=== PATIENT | male | born 1935 | race Caucasian/White ===

== ENCOUNTER 2016-10-13 | Outpatient (CLI) | payer MEDICARE | END 2016-10-13 07:15 | disposition critical access hospital (66) | CPT/HCPCS: A0425; A0427 ==

== ENCOUNTER 2016-10-13 07:32 | Emergency (ER) | payer MEDICARE ==
[2016-10-13] MEDS ORDERED: guaiFENesin/CODEINE 5 ML UDC PO STA (07:38)
[2016-10-13] MEDS ORDERED: BENZONATATE 100 MG CAPSULE PO STA (07:38)
[2016-10-13] MEDS ORDERED: ALBUTEROL NEB 2.5 MG/3 ML INH STA (07:38)
[2016-10-13] MEDS ORDERED: guaiFENesin/CODEINE 5 ML UDC ONE (07:41)
[2016-10-13] MEDS ORDERED: BENZONATATE 100 MG CAPSULE PO ONE (07:41)
[2016-10-13] MEDS ORDERED: ALBUTEROL NEB 2.5 MG/3 ML INH ONE (08:02)
== END 2016-10-13 09:52 | disposition home or self-care (01) ==
DX: J40 Bronchitis, not specified as acute or chronic (principal); R51 Headache; J45.909 Unspecified asthma, uncomplicated; I10 Essential (primary) hypertension; I48.91 Unspecified atrial fibrillation; Z79.01 Long term (current) use of anticoagulants; M19.90 Unspecified osteoarthritis, unspecified site; M06.9 Rheumatoid arthritis, unspecified; G62.9 Polyneuropathy, unspecified; Z79.82 Long term (current) use of aspirin
CPT/HCPCS: 71020; 85610; 94640; 99283; 99284; A9270; J7613

== ENCOUNTER 2016-10-24 10:07 | Outpatient (CLI) | payer MEDICARE | END 2016-10-24 10:08 | disposition home or self-care (01) | DX: J18.9 Pneumonia, unspecified organism (principal) ==

== ENCOUNTER 2016-11-26 08:00 | Outpatient (CLI) | payer MEDICARE | END 2016-11-26 23:59 | DX: M06.4 Inflammatory polyarthropathy (principal) ==

== ENCOUNTER 2017-04-01 11:40 | Outpatient (CLI) | payer MEDICARE ==
[2017-04-01 19:20] LABS: BASOPHILS # (AUTO) 0.1 10^3/uL (0.0-0.1); BASOPHILS % (AUTO) 0.7 %; EOSINOPHILS % (AUTO) 0.4 %; HCT - HEMATOCRIT 34.3 % (42.0-52.0); HGB - HEMOGLOBIN 11.4 g/dL (14.0-18.0); LYMPHOCYTES # (AUTO) 0.9 10^3/uL (1.5-3.5); MEAN CORPUSCULAR HEMOGLOBIN 31.9 pg (27.0-31.0); MEAN CORPUSCULAR HGB CONC 33.4 g/dL (32.0-36.0); MEAN CORPUSCULAR VOLUME 95.6 fL (80.0-94.0); MONOCYTES # (AUTO) 0.7 10^3/uL (0.0-1.0); MONOCYTES % (AUTO) 6.9 %; NEUTROPHILS # (AUTO) 7.8 10^3/uL (1.5-6.6); NUCLEATED RED BLOOD CELLS AUTO 0.1 /100WBC; RED BLOOD COUNT 3.59 10^6/uL (4.70-6.10); RED CELL DISTRIBUTION WIDTH 18.1 % (12.0-15.0); UNCORRECTED WHITE BLOOD COUNT 9.5 x10^3/uL; WHITE BLOOD COUNT 9.5 x10^3/uL (4.8-10.8)
[2017-04-01 19:41] LABS: ALBUMIN/GLOBULIN RATIO 1.7 (1.0-2.2); BILIRUBIN,TOTAL 1.1 mg/dL (0.2-1.0); CREATININE 1.2 mg/dL (0.6-1.2); POTASSIUM 4.1 mmol/L (3.5-5.0); TOTAL PROTEIN 6.4 g/dL (6.7-8.2)
== END 2017-04-01 11:41 | disposition home or self-care (01) ==
LOC: LAB.WCP 11:40
PROVIDERS: ATTEND Internal Medicine Rheumatology
DX: M06.4 Inflammatory polyarthropathy (principal)
CPT/HCPCS: 36415; 80053; 85025; 85651

== ENCOUNTER 2017-07-20 11:25 | Outpatient (CLI) | payer MEDICARE ==
[2017-07-20 19:34] LABS: CALCIUM 8.2 mg/dL (8.5-10.3); CREATININE 1.9 mg/dL (0.6-1.2); POTASSIUM 4.3 mmol/L (3.5-5.0)
== END 2017-07-20 11:26 | disposition home or self-care (01) ==
LOC: LAB.WCP 11:25
PROVIDERS: ATTEND Family Medicine
DX: I10 Essential (primary) hypertension (principal)
CPT/HCPCS: 36415; 80048

== ENCOUNTER 2017-07-28 09:00 | Outpatient (CLI) | payer MEDICARE ==
[2017-07-28 19:01] LABS: CALCIUM 8.6 mg/dL (8.5-10.3); CREATININE 1.5 mg/dL (0.6-1.2); POTASSIUM 4.7 mmol/L (3.5-5.0)
== END 2017-07-28 09:01 | disposition home or self-care (01) ==
LOC: LAB.WCP 09:00
PROVIDERS: ATTEND Family Medicine
DX: I10 Essential (primary) hypertension (principal)
CPT/HCPCS: 36415; 80048

== ENCOUNTER 2017-12-16 08:00 | Outpatient (CLI) | payer MEDICARE ==
[2017-12-16 13:03] LABS: ALBUMIN 3.6 g/dL (3.2-5.5); ALBUMIN/GLOBULIN RATIO 1.7 (1.0-2.2); BILIRUBIN,TOTAL 0.3 mg/dL (0.2-1.0); CALCIUM 8.4 mg/dL (8.5-10.3); CREATININE 1.2 mg/dL (0.6-1.2); TOTAL PROTEIN 5.7 g/dL (6.7-8.2); URIC ACID 2.4 mg/dL (2.6-7.2)
== END 2017-12-16 08:01 | disposition home or self-care (01) ==
LOC: LAB.WCP 08:00
PROVIDERS: ATTEND Internal Medicine Rheumatology
DX: M06.4 Inflammatory polyarthropathy (principal)
CPT/HCPCS: 36415; 80053; 84550; 85651

== ENCOUNTER 2018-06-15 09:29 | Outpatient (CLI) | payer MEDICARE ==
--- NOTE | 2018-06-15 10:48 | DEXA Report ---
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 TECHNIQUE: Dual energy x-ray absorptiometry (DXA) was performed on a [employer]. Regions measured are the AP Spine, femoral neck, and if needed forearm. COMPARISON: None. In accordance with the International Society for Clinical Densitometry (ISCD) guidelines, data from previous exams may be reanalyzed using current recommendations and techniques. This is done to allow a more accurate basis for comparison with the current study. FINDINGS: The data for the lumbar spine is as follows: BMD (g/cm/cm) T-SCORE Z-SCORE REGION L1 0.897 -2.2 -2.0 L2 0.930 -2.6 -2.3 L3 1.223 -0.1 0.1 L4 1.364 1.0 1.3 TOTAL 1.108 -0.9 -0.7 NOTE: All evaluable vertebrae are used for classification The data for the hip is as follows: BMD (g/cm/cm) T-SCORE Z-SCORE REGION Neck 0.662 -3.1 -1.8 TOTAL 0.814 -2.0 -1.0 NOTE: The femoral neck or total proximal femur, whichever is lowest, is used for classification. IMPRESSION: THE WHO CLASSIFICATION BASED ON THE INTERNATIONAL REFERENCE STANDARD IS OSTEOPOROSIS. THE FRACTURE RISK IS HIGH. RECOMMENDATION: Patients with diagnosis of osteoporosis or osteopenia should have regular bone mineral density assessment. For those eligible for Medicare, routine testing is allowed once every 2 years. Testing frequency can be increased for patients who have rapidly progressing disease or for those who are receiving medical therapy to restore bone mass. COMMENT: World Health Organization (WHO) definitions for osteoporosis and osteopenia: NORMAL BMD: T-score at -1.0 or higher, fracture risk is low OSTEOPENIA BMD: T-score between -1.0 and -2.5, fracture risk is increased. OSTEOPOROSIS BMD: T-score at -2.5 or lower, fracture risk is high. National Osteoporosis Foundation recommends: 1. Obtain adequate dietary calcium (at least 1200 mg per day) and vitamin D (400-800 international units per day). 2. Participate, as appropriate, in regular weightbearing and muscle-strengthening exercise. 3. Avoid tobacco use and reduce alcohol and caffeine intake. 4. For more detailed information see the website at www.NOF.org.
== END 2018-06-15 09:30 | disposition home or self-care (01) ==
LOC: DI 09:29
PROVIDERS: ATTEND Internal Medicine Rheumatology
DX: M81.0 Age-related osteoporosis without current pathological fracture (principal)
CPT/HCPCS: 77080

== ENCOUNTER → 2018-07-05 | Outpatient (CLI) | payer MEDICARE ==
[2018-07-05 13:27] LABS: INR 1.8 (0.8-1.2); PT - PROTHROMBIN TIME 20.1 secs (9.9-12.6)
== END ==
LOC: LAB.WCP 08:00
PROVIDERS: ATTEND Family Medicine
DX: I48.91 Unspecified atrial fibrillation (principal); Z79.01 Long term (current) use of anticoagulants
CPT/HCPCS: 36415; 85610

== ENCOUNTER 2018-07-21 06:20 | Outpatient (CLI) | payer MEDICARE | END 2018-07-21 06:21 | disposition EMS.NT | LOC: EMS 06:20 | PROVIDERS: ATTEND Surgery | DX: H53.8 Other visual disturbances (principal); R42 Dizziness and giddiness ==

== ENCOUNTER 2018-09-15 11:46 | Outpatient (CLI) | payer MEDICARE ==
[2018-09-15 19:20] LABS: BASOPHILS # (AUTO) 0.1 10^3/uL (0.0-0.1); BASOPHILS % (AUTO) 0.8 %; EOSINOPHILS # (AUTO) 0.2 10^3/uL (0.0-0.7); EOSINOPHILS % (AUTO) 1.6 %; HGB - HEMOGLOBIN 10.8 g/dL (14.0-18.0); LYMPHOCYTES % (AUTO) 10.7 %; MEAN CORPUSCULAR HEMOGLOBIN 28.4 pg (27.0-31.0); MEAN CORPUSCULAR HGB CONC 31.7 g/dL (32.0-36.0); MEAN CORPUSCULAR VOLUME 89.6 fL (80.0-94.0); MEAN PLATELET VOLUME 9.4 fL (7.4-11.4); MONOCYTES # (AUTO) 0.6 10^3/uL (0.0-1.0); MONOCYTES % (AUTO) 6.7 %; NEUTROPHILS # (AUTO) 7.5 10^3/uL (1.5-6.6); NEUTROPHILS % (AUTO) 80.2 %; PLT - PLATELET COUNT 212 10^3/uL (130-450); RED CELL DISTRIBUTION WIDTH 20.7 % (12.0-15.0); WHITE BLOOD COUNT 9.4 x10^3/uL (4.8-10.8)
[2018-09-15 19:35] LABS: ALBUMIN/GLOBULIN RATIO 1.4 (1.0-2.2); ALKALINE PHOSPHATASE 61 IU/L (42-121); ALT ALANINE AMINOTRANSFERASE 18 IU/L (10-60); AST ASPARTATE AMINOTRANSFERASE 24 IU/L (10-42); BILIRUBIN,TOTAL 0.7 mg/dL (0.2-1.0); BUN - BLOOD UREA NITROGEN 34 mg/dL (6-20); CARBON DIOXIDE - CO2 28 mmol/L (21-32); CHLORIDE 106 mmol/L (101-111); CHOL/HDL RATIO 2.3 (<5.0); CHOLESTEROL 153 mg/dL; CREATININE 1.6 mg/dL (0.6-1.2); GFR - MDRD 41 (>89); GLUCOSE 92 mg/dL (70-100); HDL CHOLESTEROL 67 mg/dL; LDL CHOLESTEROL,CALCULATED 76 mg/dL; LDL/HDL RATIO 1.1 (<3.6); SODIUM 141 mmol/L (135-145); TOTAL PROTEIN 6.8 g/dL (6.7-8.2); VLDL CHOLESTEROL 10 mg/dL
[2018-09-15 20:38] LABS: PLATELET ESTIMATE, MANUAL NORMAL (130-450,000) (NORMAL); PLATELET MORPHOLOGY NORMAL APPEARANCE (NORMAL)
== END 2018-09-15 23:59 | disposition home or self-care (01) ==
LOC: LAB.WCP 11:46
PROVIDERS: ATTEND Family Medicine
DX: I10 Essential (primary) hypertension (principal); E78.5 Hyperlipidemia, unspecified
CPT/HCPCS: 36415; 80053; 80061; 83721; 85025

== ENCOUNTER 2018-10-27 10:03 | Outpatient (CLI) | payer MEDICARE ==
[2018-10-27 13:45] LABS: RHEUMATOID FACTOR NEGATIVE (Negative)
== END 2018-10-27 23:59 | disposition home or self-care (01) ==
LOC: LAB.WCP 10:03
PROVIDERS: ATTEND Internal Medicine Rheumatology
DX: M06.4 Inflammatory polyarthropathy (principal)
CPT/HCPCS: 36415; 84550; 85651; 86200; 86430

== ENCOUNTER 2018-11-04 08:00 | Outpatient (CLI) | payer MEDICARE | END 2018-11-04 23:59 | disposition home or self-care (01) | LOC: LAB.WCP 08:00 | PROVIDERS: ATTEND Family Medicine | DX: I48.91 Unspecified atrial fibrillation (principal); Z79.01 Long term (current) use of anticoagulants ==

== ENCOUNTER 2018-12-12 20:01 | Outpatient (CLI) | payer MEDICARE | END 2018-12-12 20:02 | disposition EMS.NT | LOC: EMS 20:01 | PROVIDERS: ATTEND Surgery | DX: S61.011A Laceration without foreign body of right thumb without damage to nail, initial encounter (principal); S61.210A Laceration without foreign body of right index finger without damage to nail, initial encounter; W18.39XA Other fall on same level, initial encounter; Y93.89 Activity, other specified; Y92.009 Unspecified place in unspecified non-institutional (private) residence as the place of occurrence of the external cause ==

== ENCOUNTER 2018-12-21 16:49 | Outpatient (CLI) | payer MEDICARE ==
--- NOTE | 2018-12-22 11:31 | XRAY Report ---
Reason: ANKLE PAIN,LEFT, ARTHRITIS, RHEUMATOID Procedure Date: 12/21/2018 Accession Number: [id number] / [id number] Procedure: XR - Ankle 3 View LT CPT Code: FULL RESULT: EXAM: LEFT ANKLE RADIOGRAPHY EXAM DATE: 12/21/2018 05:11 PM. CLINICAL HISTORY: Ankle pain, left, arthritis, rheumatoid. COMPARISON: None. TECHNIQUE: 3 views. FINDINGS: The bones are qualitatively osteopenic; this limits evaluation for underlying fractures or masses. There are chronic advanced degenerative changes of the hindfoot with talar collapse; acute component is essentially not possible to exclude. There are osseous destructive changes of the distal tibia and throughout the hindfoot. Mild inferior calcaneal spurring is also noted. IMPRESSION: Advanced neuropathic hindfoot changes. In absence of a prior comparison, acute fracture or subluxation is impossible to exclude on plain radiograph alone. Recommendation: Depending on clinical symptomatology, recommend advanced imaging in consultation with [facility] subspecialty section. [facility]
== END 2018-12-21 16:50 | disposition home or self-care (01) ==
LOC: DI 16:49
PROVIDERS: ATTEND Family Medicine
DX: M19.072 Primary osteoarthritis, left ankle and foot (principal); M06.9 Rheumatoid arthritis, unspecified

== ENCOUNTER 2019-01-07 08:00 | Outpatient (CLI) | payer MEDICARE | END 2019-01-07 23:59 | disposition home or self-care (01) | LOC: LAB.R 08:00 | PROVIDERS: ATTEND Family Medicine | DX: L03.115 Cellulitis of right lower limb (principal) | CPT/HCPCS: 87070; 87205 ==

== ENCOUNTER 2019-03-01 08:00 | Outpatient (CLI) | payer MEDICARE | END 2019-03-01 08:01 | disposition home or self-care (01) | LOC: LAB.WCP 08:00 | PROVIDERS: ATTEND Family Medicine | DX: I48.91 Unspecified atrial fibrillation (principal); Z79.01 Long term (current) use of anticoagulants ==

== ENCOUNTER 2019-03-29 08:00 | Outpatient (CLI) | payer MEDICARE | END 2019-03-29 23:59 | disposition home or self-care (01) | LOC: LAB.WCP 08:00 | PROVIDERS: ATTEND Physician Assistant | DX: I48.91 Unspecified atrial fibrillation (principal); Z79.01 Long term (current) use of anticoagulants ==

== ENCOUNTER 2019-05-17 08:00 | Outpatient (CLI) | payer MEDICARE | END 2019-05-17 23:59 | disposition home or self-care (01) | LOC: LAB.WCP 08:00 | PROVIDERS: ATTEND Family Medicine | DX: I48.91 Unspecified atrial fibrillation (principal); Z79.01 Long term (current) use of anticoagulants ==

== ENCOUNTER 2019-05-31 08:00 | Outpatient (CLI) | payer MEDICARE | END 2019-05-31 23:59 | disposition home or self-care (01) | LOC: LAB.WCP 08:00 | PROVIDERS: ATTEND Family Medicine | DX: Z79.01 Long term (current) use of anticoagulants (principal); I48.91 Unspecified atrial fibrillation ==

== ENCOUNTER 2019-06-14 08:00 | Outpatient (CLI) | payer MEDICARE | END 2019-06-14 23:59 | disposition home or self-care (01) | LOC: LAB.WCP 08:00 | PROVIDERS: ATTEND Family Medicine | DX: I48.91 Unspecified atrial fibrillation (principal); Z79.01 Long term (current) use of anticoagulants ==

== ENCOUNTER 2019-06-28 08:00 | Outpatient (CLI) | payer MEDICARE | END 2019-06-28 23:59 | disposition home or self-care (01) | LOC: LAB.WCP 08:00 | PROVIDERS: ATTEND Family Medicine | DX: Z79.01 Long term (current) use of anticoagulants (principal); I48.91 Unspecified atrial fibrillation ==

== ENCOUNTER 2019-07-26 08:00 | Outpatient (CLI) | payer MEDICARE | END 2019-07-26 23:59 | disposition home or self-care (01) | LOC: LAB.WCP 08:00 | PROVIDERS: ATTEND Nurse Practitioner Family | DX: Z79.01 Long term (current) use of anticoagulants (principal); I48.91 Unspecified atrial fibrillation ==

== ENCOUNTER 2019-08-23 08:00 | Outpatient (CLI) | payer MEDICARE | END 2019-08-23 23:59 | disposition home or self-care (01) | LOC: LAB.WCP 08:00 | PROVIDERS: ATTEND Nurse Practitioner Family | DX: Z79.01 Long term (current) use of anticoagulants (principal); I48.91 Unspecified atrial fibrillation ==

== ENCOUNTER 2019-09-14 08:00 | Outpatient (CLI) | payer MEDICARE | END 2019-09-14 23:59 | disposition home or self-care (01) | LOC: LAB.WCP 08:00 | PROVIDERS: ATTEND Family Medicine | DX: Z79.01 Long term (current) use of anticoagulants (principal); I48.91 Unspecified atrial fibrillation ==

== ENCOUNTER 2019-10-10 11:03 | Outpatient (CLI) | payer MEDICARE ==
--- NOTE | 2019-10-10 22:30 | XRAY Report ---
Reason: RIB PAIN Procedure Date: 10/10/2019 Accession Number: [id number] / [id number] Procedure: WCP - Chest 1 View X-Ray CPT Code: 37340 Final Report FULL RESULT: EXAM: CHEST RADIOGRAPHY EXAM DATE: 10/10/2019 11:03 AM. CLINICAL HISTORY: RIB PAIN. Chest pain. Shortness of air. Recent falls. Bilateral lower rib pain. COMPARISON: CHEST 2 VIEW PA/LAT 10/13/2016 7:51 AM. TECHNIQUE: 1 view. FINDINGS: Lungs/Pleura: No focal opacities evident. No pleural effusion. No pneumothorax. Mediastinum: Within exam limitations, the cardiomediastinal contour is normal. Other: No acute bone findings are seen. IMPRESSION: No acute findings are seen. [facility]
== END 2019-10-10 23:59 | disposition home or self-care (01) ==
LOC: DI.WCP 11:03
PROVIDERS: ATTEND Family Medicine
DX: R07.81 Pleurodynia (principal)
CPT/HCPCS: 71045

== ENCOUNTER 2019-10-25 08:00 | Outpatient (CLI) | payer MEDICARE | END 2019-10-25 23:59 | disposition home or self-care (01) | LOC: LAB.WCP 08:00 | PROVIDERS: ATTEND Family Medicine | DX: I48.91 Unspecified atrial fibrillation (principal); Z79.01 Long term (current) use of anticoagulants ==

== ENCOUNTER 2019-11-08 08:00 | Outpatient (CLI) | payer MEDICARE | END 2019-11-08 23:59 | disposition home or self-care (01) | LOC: LAB.WCP 08:00 | PROVIDERS: ATTEND Family Medicine | DX: I48.91 Unspecified atrial fibrillation (principal); Z79.01 Long term (current) use of anticoagulants ==

== ENCOUNTER 2019-11-29 08:00 | Outpatient (CLI) | payer MEDICARE | END 2019-11-29 23:59 | disposition home or self-care (01) | LOC: LAB.WCP 08:00 | PROVIDERS: ATTEND Family Medicine | DX: I48.91 Unspecified atrial fibrillation (principal); Z79.01 Long term (current) use of anticoagulants ==

== ENCOUNTER 2019-12-27 08:00 | Outpatient (CLI) | payer MEDICARE | END 2019-12-27 23:59 | disposition home or self-care (01) | LOC: LAB.WCP 08:00 | PROVIDERS: ATTEND Family Medicine | DX: I48.91 Unspecified atrial fibrillation (principal); Z79.01 Long term (current) use of anticoagulants ==

== ENCOUNTER 2020-02-02 08:00 | Outpatient (CLI) | payer MEDICARE | END 2020-02-02 23:59 | disposition home or self-care (01) | LOC: LAB.WCP 08:00 | PROVIDERS: ATTEND Family Medicine | DX: I48.91 Unspecified atrial fibrillation (principal); Z79.01 Long term (current) use of anticoagulants ==

== ENCOUNTER 2020-02-09 08:00 | Outpatient (CLI) | payer MEDICARE ==
[2020-02-09 18:57] LABS: BASOPHILS # (AUTO) 0.1 10^3/uL (0.0-0.1); BASOPHILS % (AUTO) 0.4 %; EOSINOPHILS # (AUTO) 0.1 10^3/uL (0.0-0.7); EOSINOPHILS % (AUTO) 1.2 %; HGB - HEMOGLOBIN 11.5 g/dL (14.0-18.0); LYMPHOCYTES # (AUTO) 0.7 10^3/uL (1.5-3.5); LYMPHOCYTES % (AUTO) 5.9 %; MEAN CORPUSCULAR HEMOGLOBIN 30.3 pg (27.0-31.0); MEAN CORPUSCULAR HGB CONC 31.4 g/dL (32.0-36.0); MEAN CORPUSCULAR VOLUME 96.6 fL (80.0-94.0); MEAN PLATELET VOLUME 11.2 fL (7.4-11.4); MONOCYTES # (AUTO) 0.6 10^3/uL (0.0-1.0); MONOCYTES % (AUTO) 5.2 %; NEUTROPHILS # (AUTO) 9.9 10^3/uL (1.5-6.6); NEUTROPHILS % (AUTO) 86.9 %; PLT - PLATELET COUNT 192 10^3/uL (130-450); RED BLOOD COUNT 3.79 10^6/uL (4.70-6.10); RED CELL DISTRIBUTION WIDTH 14.9 % (12.0-15.0); WHITE BLOOD COUNT 11.4 x10^3/uL (4.8-10.8)
[2020-02-09 19:23] LABS: ALBUMIN 4.1 g/dL (3.2-5.5); ALBUMIN/GLOBULIN RATIO 1.5 (1.0-2.2); BILIRUBIN,TOTAL 1.3 mg/dL (0.2-1.0); CREATININE 1.4 mg/dL (0.6-1.2); TOTAL PROTEIN 6.9 g/dL (6.7-8.2)
[2020-02-09 19:32] LABS: CALCIUM 9.1 mg/dL (8.5-10.3)
== END 2020-02-09 23:59 | disposition home or self-care (01) ==
LOC: LAB.WCP 08:00
PROVIDERS: ATTEND Family Medicine
DX: I10 Essential (primary) hypertension (principal)
CPT/HCPCS: 36415; 80053; 85025

== ENCOUNTER 2020-02-28 06:25 | Outpatient (CLI) | payer MEDICARE | END 2020-02-28 06:26 | disposition EMS.NT | LOC: EMS 06:25 | PROVIDERS: ATTEND Surgery | DX: R51 Headache (principal) ==

== ENCOUNTER 2020-02-28 15:50 | Outpatient (CLI) | payer MEDICARE | END 2020-02-28 15:51 | disposition short-term general hospital (02) | LOC: EMS 15:50 | PROVIDERS: ATTEND Surgery | DX: R41.82 Altered mental status, unspecified (principal); R09.89 Other specified symptoms and signs involving the circulatory and respiratory systems | CPT/HCPCS: A0425; A0427 ==

== ENCOUNTER 2020-03-03 02:41 | Outpatient (CLI) | payer MEDICARE | END 2020-03-03 02:42 | disposition critical access hospital (66) | LOC: EMS 02:41 | PROVIDERS: ATTEND Surgery | DX: R00.0 Tachycardia, unspecified (principal) | CPT/HCPCS: A0425; A0427 ==

== ENCOUNTER 2020-03-03 02:57 | Emergency (ER) | payer MEDICARE ==
--- NOTE | 2020-03-03 03:02 | ED Physician Documentation ---
History of Present Illness - Stated complaint Stated Complaint: AFIB - Chief complaint Chief Complaint: Cardiac - History obtained from History obtained from: Patient (Patient is an 84-year-old male DNR with chronic a fib. recently discharged from [facility] presents with a chief complaint of atrial fibrillation. He is on Coumadin. He denies chest pain. lopressor was held after recent admission has not restarted. patient reports chronic RUE brusing and), Other (swelling for 3 months after he tore his bicep. also reports chronic b/l LE edema. denies any hx of PE/DVT. patient denies chest pain.) Review of Systems Constitutional: reports: Reviewed and negative Eyes: reports: Reviewed and negative Ears: reports: Reviewed and negative Nose: reports: Reviewed and negative Throat: reports: Reviewed and negative Cardiac: reports: Palpitations. denies: Chest pain / pressure Respiratory: reports: Reviewed and negative GI: reports: Reviewed and negative : reports: Reviewed and negative Skin: reports: Reviewed and negative Musculoskeletal: reports: Reviewed and negative Neurologic: reports: Reviewed and negative Psychiatric: reports: Reviewed and negative Endocrine: reports: Reviewed and negative Immunocompromised: reports: Reviewed and negative PD PAST MEDICAL HISTORY - Past Medical History Cardiovascular: Hypertension, Atrial fibrillation Respiratory: Asthma GI: Other : Frequency HEENT: Chronic hearing loss, Other Psych: None Musculoskeletal: Osteoarthritis, Rheumatoid arthritis Derm: None - Past Surgical History Past Surgical History: Yes Ortho: Carpal Tunnel surgery, Other - Present Medications Home Medications: Ambulatory Orders Medication Instructions Recorded Confirmed Cyanocobalamin (Vitamin B-12) 250 mcg PO DAILY 04/26/14 03/03/20 [Vitamin B-12] Lisinopril 40 mg PO BID 04/26/14 03/03/20 [place]-3 Fatty Acids [Fish Oil] 1,000 mg PO DAILY 04/26/14 03/03/20 Morphine Sulfate 15 mg PO DAILY PRN 08/02/14 03/03/20 Atorvastatin Calcium 40 mg PO QPM 10/13/16 03/03/20 Warfarin Sodium [Jantoven] 2.5 mg PO DAILY 10/13/16 03/03/20 Furosemide 40 mg PO 03/03/20 allopurinoL [Allopurinol] 100 tab PO TID 03/03/20 03/03/20 amLODIPine [Norvasc] 2.5 mg PO QPM 03/03/20 03/03/20 - Allergies Allergies/Adverse Reactions: Allergies Allergy/AdvReac Type Severity Reaction Status Date / Time No Known Drug Allergies Allergy Verified 03/03/20 03:06 - Social History Does the pt smoke?: No Smoking Status: Never smoker PD ED PE NORMAL - Vitals Vital signs reviewed: Yes - General General: No acute distress, Well developed/nourished - HEENT HEENT: Atraumatic, PERRL - Neck Neck: Supple, no meningeal sign - Cardiac Cardiac: RRR, No murmur, Strong equal pulses - Respiratory Respiratory: No respiratory distress, Clear bilaterally - Abdomen Abdomen: Normal bowel sounds, Soft, Non tender, Non distended - Derm Derm: Warm and dry - Extremities Extremities: Other (Right upper extremity with edema and ecchymosis diffusely.Compartments soft. Bilateral 1+ lower extremity pitting edema.) - Neuro Neuro: Alert and oriented X 3, bar tacker 2-12 intact, No motor deficit, No sensory deficit, Normal speech - Psych Psych: Normal mood, Normal affect Results - Vitals Vitals: Vital Signs - 24 hr 03/03/20 03/03/20 03/03/20 02:59 03:14 03:33 Temperature 36.8 C Heart Rate 142 H 123 H 125 H Respiratory 17 19 18 Rate Blood Pressure 163/103 H 149/88 H Blood Pressure 149/88 H [Left] Blood Pressure 152/70 H [Right] O2 Saturation 99 99 100 03/03/20 03/03/20 03/03/20 03:45 03:49 04:09 Temperature Heart Rate 77 84 87 Respiratory 17 21 16 Rate Blood Pressure 127/71 152/70 H 141/66 H Blood Pressure [Left] Blood Pressure [Right] O2 Saturation 100 100 100 03/03/20 03/03/20 04:56 05:38 Temperature 36.3 C L Heart Rate 124 H 83 Respiratory 17 17 Rate Blood Pressure 159/63 H 158/86 H Blood Pressure [Left] Blood Pressure [Right] O2 Saturation 100 100 Oxygen O2 Source Room air - EKG (time done) 03:08 Rate: Other (Atrial fibrillation. posterior and right sided EKG ordered.) 03:32 Rate: Other (right sided EKG no STEMI) 03:34 Rate: Other (Posterior EKG, no STEMI) - Labs Labs: Laboratory Tests 03/03/20 03/03/20 03/03/20 00:50 03:30 03:30 WBC 10.1 RBC 3.26 L Hgb 10.1 L Hct 31.6 L MCV 96.9 H MCH 31.0 MCHC 32.0 RDW 15.5 H Plt Count 152 MPV 10.8 Neut # (Auto) 7.4 H Lymph # (Auto) 1.3 L [place] # (Auto) 0.8 Eos # (Auto) 0.4 Baso # (Auto) 0.1 Absolute Nucleated RBC 0.00 Nucleated RBC % 0.0 PT INR APTT Sodium 136 Potassium 4.4 Chloride 105 Carbon Dioxide 21 Anion Gap 10.0 BUN 41 H Creatinine 1.7 H Estimated GFR (MDRD) 38 L Glucose 95 Lactic Acid Calcium 8.7 Phosphorus Magnesium Total Bilirubin 1.1 H AST 20 ALT 19 Alkaline Phosphatase 65 Total Creatine Kinase 131 Troponin I High Sens B-Natriuretic Peptide Total Protein 6.2 L Albumin 3.7 Globulin 2.5 Albumin/Globulin Ratio 1.5 Lipase 33 TSH Urine Color YELLOW Urine Clarity CLEAR Urine pH 5.0 Ur Specific [place] 1.025 Urine Protein NEGATIVE Urine Glucose (UA) NEGATIVE Urine Ketones NEGATIVE Urine Occult Blood NEGATIVE Urine Nitrite NEGATIVE Urine Bilirubin NEGATIVE Urine Urobilinogen 0.2 (NORMAL) Ur Leukocyte Esterase NEGATIVE Ur Microscopic Review NOT INDICATED Urine Culture Comments NOT INDICATED Ethyl Alcohol < 5.0 03/03/20 03/03/20 03/03/20 03:30 03:30 03:30 WBC RBC Hgb Hct MCV MCH MCHC RDW Plt Count MPV Neut # (Auto) Lymph # (Auto) [place] # (Auto) Eos # (Auto) Baso # (Auto) Absolute Nucleated RBC Nucleated RBC % PT 22.2 H INR 2.0 H APTT 30.8 Sodium Potassium Chloride Carbon Dioxide Anion Gap BUN Creatinine Estimated GFR (MDRD) Glucose Lactic Acid Calcium Phosphorus Magnesium Total Bilirubin AST ALT Alkaline Phosphatase Total Creatine Kinase Troponin I High Sens 33.8 H* B-Natriuretic Peptide 78 Total Protein Albumin Globulin Albumin/Globulin Ratio Lipase TSH Urine Color Urine Clarity Urine pH Ur Specific [place] Urine Protein Urine Glucose (UA) Urine Ketones Urine Occult Blood Urine Nitrite Urine Bilirubin Urine Urobilinogen Ur Leukocyte Esterase Ur Microscopic Review Urine Culture Comments Ethyl Alcohol 03/03/20 03/03/20 03/03/20 03:30 03:30 03:41 WBC RBC Hgb Hct MCV MCH MCHC RDW Plt Count MPV Neut # (Auto) Lymph # (Auto) [place] # (Auto) Eos # (Auto) Baso # (Auto) Absolute Nucleated RBC Nucleated RBC % PT INR APTT Sodium Potassium Chloride Carbon Dioxide Anion Gap BUN Creatinine Estimated GFR (MDRD) Glucose Lactic Acid 1.2 Calcium Phosphorus 3.0 Magnesium 2.2 Total Bilirubin AST ALT Alkaline Phosphatase Total Creatine Kinase Troponin I High Sens B-Natriuretic Peptide Total Protein Albumin Globulin Albumin/Globulin Ratio Lipase TSH 1.58 Urine Color Urine Clarity Urine pH Ur Specific [place] Urine Protein Urine Glucose (UA) Urine Ketones Urine Occult Blood Urine Nitrite Urine Bilirubin Urine Urobilinogen Ur Leukocyte Esterase Ur Microscopic Review Urine Culture Comments Ethyl Alcohol PD MEDICAL DECISION MAKING - ED course Complexity details: reviewed old records, reviewed results (Elevated high sensitivity troponin noted. Records reviewed from [facility] from recent admission 2 days ago. noted slightly elevated troponin as well. patient denies chest pain. LAVINIA could be contributing factor to mild elevation in high sensitivity troponin.), re-evaluated patient (HR improved to 80s after 1 dose of diltiazem. according to records from [facility], patient is a DNR. patient is on coumadin and has a therapeutic INR. patient should restart his home lopressor at half dose per recommendations from [facility].), considered differential (atrial fibrillation. chf. ), d/w patient (patient had MDM capability and capacity and wants to go home. ), other (patient is DNR with chronic atrial fibrillation. Heart rate improved with 1 dose of diltiazem. patient is to restart his home lopressor at 1/2 dose and has not done so since recent discharge. did offer to transfer patient back to [facility]. Patient would like to be dcd home. he has MDM ) Departure - Departure Disposition: Home, Self Care Clinical Impression: Atrial fibrillation Qualifiers: Atrial fibrillation type: unspecified Qualified Code(s): I48.91 - Unspecified atrial fibrillation Condition: Stable Instructions: Atrial Fibrillation Dc Follow-Up: your, doctor [Other] - 03/05/20 Comments: resume your home dose of lopressor at half dose. continue coumadin. follow up with your pcp on Thursday. Discharge Date/Time: 03/03/20 05:43
[2020-03-03] MEDS ORDERED: DILTIAZEM 50 MG/10 ML VIAL IVP ONE (03:28)
[2020-03-03 03:41] LABS: BASOPHILS # (AUTO) 0.1 10^3/uL (0.0-0.1); BASOPHILS % (AUTO) 0.5 %; EOSINOPHILS # (AUTO) 0.4 10^3/uL (0.0-0.7); EOSINOPHILS % (AUTO) 4.3 %; HGB - HEMOGLOBIN 10.1 g/dL (14.0-18.0); LYMPHOCYTES # (AUTO) 1.3 10^3/uL (1.5-3.5); LYMPHOCYTES % (AUTO) 13.2 %; MEAN CORPUSCULAR VOLUME 96.9 fL (80.0-94.0); MEAN PLATELET VOLUME 10.8 fL (7.4-11.4); MONOCYTES # (AUTO) 0.8 10^3/uL (0.0-1.0); MONOCYTES % (AUTO) 8.1 %; NEUTROPHILS # (AUTO) 7.4 10^3/uL (1.5-6.6); NEUTROPHILS % (AUTO) 73.5 %; PLT - PLATELET COUNT 152 10^3/uL (130-450); RED BLOOD COUNT 3.26 10^6/uL (4.70-6.10); RED CELL DISTRIBUTION WIDTH 15.5 % (12.0-15.0); WHITE BLOOD COUNT 10.1 x10^3/uL (4.8-10.8)
[2020-03-03 03:49] LABS: ALBUMIN 3.7 g/dL (3.2-5.5); ALBUMIN/GLOBULIN RATIO 1.5 (1.0-2.2); ALKALINE PHOSPHATASE 65 IU/L (42-121); ALT ALANINE AMINOTRANSFERASE 19 IU/L (10-60); AST ASPARTATE AMINOTRANSFERASE 20 IU/L (10-42); BILIRUBIN,TOTAL 1.1 mg/dL (0.2-1.0); BUN - BLOOD UREA NITROGEN 41 mg/dL (6-20); CALCIUM 8.7 mg/dL (8.5-10.3); CARBON DIOXIDE - CO2 21 mmol/L (21-32); CHLORIDE 105 mmol/L (101-111); CK- CREATINE KINASE 131 IU/L (22-269); CREATININE 1.7 mg/dL (0.6-1.2); GLUCOSE 95 mg/dL (70-100); LIPASE 33 U/L (22-51); SODIUM 136 mmol/L (135-145); TOTAL PROTEIN 6.2 g/dL (6.7-8.2)
[2020-03-03 03:51] LABS: PT - PROTHROMBIN TIME 22.2 secs (9.9-12.6)
[2020-03-03 03:58] LABS: PARTIAL THROMBOPLASTIN TIME 30.8 secs (24.9-33.3)
[2020-03-03 04:00] LABS: MAGNESIUM 2.2 mg/dL (1.7-2.8)
[2020-03-03 05:08] LABS: BILIRUBIN,URINE NEGATIVE (NEGATIVE); GLUCOSE, URINE (UA) NEGATIVE (NEGATIVE); KETONES,URINE (UA) NEGATIVE (NEGATIVE); LEUKOCYTE ESTERASE, URINE NEGATIVE (NEGATIVE); NITRITE,URINE NEGATIVE (NEGATIVE); OCCULT BLOOD,URINE NEGATIVE (NEGATIVE); PROTEIN,URINE NEGATIVE (NEGATIVE); UROBILINOGEN,URINE 0.2 (NORMAL) E.U./dL (NORMAL)
[2020-03-03 05:09] LABS: CLARITY,URINE CLEAR (CLEAR)
[2020-03-03 05:39] VITALS: BP 158/86
--- NOTE | 2020-03-03 09:41 | XRAY Report ---
PROCEDURE: Chest 1 View X-Ray INDICATIONS: a fib TECHNIQUE: One view of the chest was acquired. COMPARISON: Chest x-ray, 10/10/2019. FINDINGS: Surgical changes and devices: None. Lungs and pleura: No pleural effusions or pneumothorax. Lungs are clear. Mediastinum: Mediastinal contours appear normal. Heart size is normal. Aortic calcification consis tent with atherosclerosis. Bones and chest wall: No suspicious bony lesions. Overlying soft tissues appear unremarkable. IMPRESSION: No acute cardiopulmonary disease. Reviewed by: Apolonia Mace MD on 03/03/2020 9:39 AM PDT Approved by: Apolonia Mace MD on 03/03/2020 9:39 AM PDT Station ID: [id number]
== END 2020-03-03 05:43 | disposition home or self-care (01) ==
LOC: EDUNIT# → ED 02:57
DX: I48.20 Chronic atrial fibrillation, unspecified (principal); Z79.01 Long term (current) use of anticoagulants; I45.10 Unspecified right bundle-branch block; I10 Essential (primary) hypertension; R60.0 Localized edema; S40.021A Contusion of right upper arm, initial encounter; X58.XXXA Exposure to other specified factors, initial encounter; Z66 Do not resuscitate
CPT/HCPCS: 36415; 71045; 80053; 80320; 81001; 81003; 82550; 83605; 83690; 83735; 83880; 84100; 84443; 84484; 85025; 85610; 85730; 87086; 93005; 96374; 99285

== ENCOUNTER 2020-03-04 14:19 | Outpatient (CLI) | payer MEDICARE | END 2020-03-04 23:59 | disposition EMS.NT | LOC: EMS 14:19 | PROVIDERS: ATTEND Surgery | DX: Z03.89 Encounter for observation for other suspected diseases and conditions ruled out (principal) ==

== ENCOUNTER 2020-03-07 10:53 | Outpatient (CLI) | payer MEDICARE | END 2020-03-07 10:54 | disposition critical access hospital (66) | LOC: EMS 10:53 | PROVIDERS: ATTEND Surgery | DX: R55 Syncope and collapse (principal); R06.89 Other abnormalities of breathing | CPT/HCPCS: A0425; A0427 ==

== ENCOUNTER 2020-03-07 11:11 | Emergency (ER) | payer MEDICARE ==
--- NOTE | 2020-03-07 11:53 | ED Physician Documentation ---
PD HPI SYNCOPE - Stated complaint Stated Complaint: SYNCOPE - Chief complaint Chief Complaint: Resp - History obtained from History obtained from: Patient, EMS - History of Present Illness Witnessed: Unwitnessed Timing - onset: Today Duration: Minutes Preceding symptoms: None Associated symptoms: No: Seizure, Incontinant of urine, Incontinant of stool, Headache, Vision changes, Chest pain, Palpitations, Diaphoresis, Dyspnea, Nausea / vomiting Contributing factors: Recent med change Injury occurred: None Similar symptoms before: Has not had sx before Recently seen: Emergency Dept - Additional information Additional information: 84-year-old male with history of atrial fibrillation on Coumadin has recently been into the emergency department with atrial fibrillation with rapid ventricular response and he was given a single dose of diltiazem discharged to home on a half dose of his prior metoprolol. He had been into [facility] the week prior to that. He was in the emergency department 4 days ago. He returned to his home he states that he was doing well he denies any shortness of breath other than with exertion and denies any fever or cough. He was sitting at his computer desk today when his found him slumped over. She went to wake him up and was unable to get his attention or get him to wake up. She called the medics and by the time the got there he was still not talking they laid him down on the floor and he began to come to. He now has no recollection of the event only states that he was sitting at his desk and he thought he might be asleep. The patient denies any history of congestive heart failure he does have some very swollen legs which she states is related to his rheumatoid arthritis. He does have sleep apnea. Review of Systems Constitutional: denies: Fever Eyes: denies: Decreased vision Ears: denies: Ear pain Nose: denies: Rhinorrhea / runny nose, Congestion Throat: denies: Sore throat Cardiac: reports: Pedal edema. denies: Chest pain / pressure, Palpitations Respiratory: reports: Dyspnea (on exertion no different than usual). denies: Cough GI: denies: Abdominal Pain, Nausea, Vomiting : reports: Frequency. denies: Dysuria Skin: denies: Rash Musculoskeletal: reports: Extremity pain, Extremity swelling. denies: Neck pain, Back pain Neurologic: reports: Syncope. denies: Generalized weakness, Focal weakness, Numbness, Near syncope PD PAST MEDICAL HISTORY - Past Medical History Cardiovascular: Hypertension, Atrial fibrillation Respiratory: Asthma GI: Other : Frequency HEENT: Chronic hearing loss, Other Psych: None Musculoskeletal: Osteoarthritis, Rheumatoid arthritis Derm: None - Past Surgical History Past Surgical History: Yes Ortho: Carpal Tunnel surgery, Other - Present Medications Home Medications: Ambulatory Orders Medication Instructions Recorded Confirmed Cyanocobalamin (Vitamin B-12) 250 mcg PO DAILY 04/26/14 03/03/20 [Vitamin B-12] Lisinopril 40 mg PO BID 04/26/14 03/03/20 [place]-3 Fatty Acids [Fish Oil] 1,000 mg PO DAILY 04/26/14 03/03/20 Morphine Sulfate 15 mg PO DAILY PRN 08/02/14 03/03/20 Atorvastatin Calcium 40 mg PO QPM 10/13/16 03/03/20 Warfarin Sodium [Jantoven] 2.5 mg PO DAILY 10/13/16 03/03/20 Furosemide 40 mg PO 03/03/20 allopurinoL [Allopurinol] 100 tab PO TID 03/03/20 03/03/20 amLODIPine [Norvasc] 2.5 mg PO QPM 03/03/20 03/03/20 Potassium Chloride 20 meq PO 03/07/20 predniSONE [Prednisone] 03/07/20 - Allergies Allergies/Adverse Reactions: Allergies Allergy/AdvReac Type Severity Reaction Status Date / Time No Known Drug Allergies Allergy Verified 03/07/20 11:36 - Social History Does the pt smoke?: No Smoking Status: Never smoker Does the pt drink ETOH?: Yes Does the pt have substance abuse?: No - Immunizations Immunizations are current?: Yes - POLST Patient has POLST: No PD ED PE NORMAL - Vitals Vital signs reviewed: Yes (hypertensive) - General General: Alert and oriented X 3, No acute distress, Well developed/nourished - HEENT HEENT: Atraumatic, PERRL, EOMI - Neck Neck: Supple, no meningeal sign, No bony TTP - Cardiac Cardiac: Other (Irregularly irregular rate and rhythm with 2 out of 6 holosystolic murmur at left sternal border.) - Respiratory Respiratory: No respiratory distress, Other (And inspiratory squeak in the right midlung otherwise good air movement symmetric and without crackles.) - Abdomen Abdomen: Normal bowel sounds, Soft, Non tender, Non distended, No organomegaly - Back Back: No CVA TTP, No spinal TTP - Derm Derm: Normal color, Warm and dry, No rash - Extremities Extremities: Other (Both lower extremities are markedly swollen and have erythema of venous stasis. The left leg is in a compression stocking the right leg is bandaged.) - Neuro Neuro: Alert and oriented X 3, personnel administrator 2-12 intact, No motor deficit, No sensory deficit, Normal speech Eye Opening: Spontaneous Motor: Obeys Commands Verbal: Oriented GCS Score: 15 - Psych Psych: Normal mood, Normal affect Results - Vitals Vitals: Vital Signs - 24 hr 03/07/20 03/07/20 03/07/20 11:00 11:15 11:34 Temperature 36.6 C Heart Rate 55 L 56 L Respiratory 13 18 Rate Blood Pressure 131/56 H 131/56 H O2 Saturation 94 97 03/07/20 13:51 Temperature Heart Rate 91 Respiratory 20 Rate Blood Pressure 148/101 H O2 Saturation 95 Oxygen O2 Source Room air - EKG (time done) 00397 Rate: Rate (enter#) (48) Rhythm: Atrial fibrillation Intervals: RBBB Ischemia: Q waves Compare to prior EKG: Changed from prior EKG (SPT 03-03-2020 the rate is slowed and the T-wave inversions seen in aterior leads has resolved. ) Computer interpretation: Agree with computer - Labs Labs: Laboratory Tests 03/07/20 03/07/20 03/07/20 12:40 13:09 13:15 WBC RBC Hgb Hct MCV MCH MCHC RDW Plt Count MPV Neut # (Auto) Lymph # (Auto) [place] # (Auto) Eos # (Auto) Baso # (Auto) Absolute Nucleated RBC Nucleated RBC % PT 19.4 H INR 1.8 H Sodium 137 Potassium 5.1 H Chloride 106 Carbon Dioxide 21 Anion Gap 10.0 BUN 48 H Creatinine 2.1 H Estimated GFR (MDRD) 30 L Glucose 102 H Lactic Acid Calcium 8.7 Magnesium 2.5 Total Bilirubin 1.3 H AST 18 ALT 18 Alkaline Phosphatase 56 Troponin I High Sens B-Natriuretic Peptide Total Protein 6.4 L Albumin 3.8 Globulin 2.6 Albumin/Globulin Ratio 1.5 Lipase 38 Urine Color YELLOW Urine Clarity CLEAR Urine pH 6.0 Ur Specific [place] 1.015 Urine Protein NEGATIVE Urine Glucose (UA) NEGATIVE Urine Ketones NEGATIVE Urine Occult Blood SMALL H Urine Nitrite NEGATIVE Urine Bilirubin NEGATIVE Urine Urobilinogen 0.2 (NORMAL) Ur Leukocyte Esterase NEGATIVE Urine RBC 11-25 H Urine WBC 0-3 Ur Squamous Epith Cells RARE Squamous Urine Bacteria Few Urine Casts 11-25 Hyaline Casts Ur Microscopic Review INDICATED Urine Culture Comments NOT INDICATED 03/07/20 03/07/20 03/07/20 13:15 13:15 13:15 WBC 9.5 RBC 3.39 L Hgb 10.8 L Hct 33.2 L MCV 97.9 H MCH 31.9 H MCHC 32.5 RDW 15.7 H Plt Count 193 MPV 10.7 Neut # (Auto) 7.2 H Lymph # (Auto) 0.9 L [place] # (Auto) 0.9 Eos # (Auto) 0.4 Baso # (Auto) 0.1 Absolute Nucleated RBC 0.00 Nucleated RBC % 0.0 PT INR Sodium Potassium Chloride Carbon Dioxide Anion Gap BUN Creatinine Estimated GFR (MDRD) Glucose Lactic Acid 1.8 Calcium Magnesium Total Bilirubin AST ALT Alkaline Phosphatase Troponin I High Sens B-Natriuretic Peptide 233 H Total Protein Albumin Globulin Albumin/Globulin Ratio Lipase Urine Color Urine Clarity Urine pH Ur Specific [place] Urine Protein Urine Glucose (UA) Urine Ketones Urine Occult Blood Urine Nitrite Urine Bilirubin Urine Urobilinogen Ur Leukocyte Esterase Urine RBC Urine WBC Ur Squamous Epith Cells Urine Bacteria Urine Casts Ur Microscopic Review Urine Culture Comments 03/07/20 13:15 WBC RBC Hgb Hct MCV MCH MCHC RDW Plt Count MPV Neut # (Auto) Lymph # (Auto) [place] # (Auto) Eos # (Auto) Baso # (Auto) Absolute Nucleated RBC Nucleated RBC % PT INR Sodium Potassium Chloride Carbon Dioxide Anion Gap BUN Creatinine Estimated GFR (MDRD) Glucose Lactic Acid Calcium Magnesium Total Bilirubin AST ALT Alkaline Phosphatase Troponin I High Sens 25.2 H* B-Natriuretic Peptide Total Protein Albumin Globulin Albumin/Globulin Ratio Lipase Urine Color Urine Clarity Urine pH Ur Specific [place] Urine Protein Urine Glucose (UA) Urine Ketones Urine Occult Blood Urine Nitrite Urine Bilirubin Urine Urobilinogen Ur Leukocyte Esterase Urine RBC Urine WBC Ur Squamous Epith Cells Urine Bacteria Urine Casts Ur Microscopic Review Urine Culture Comments - Rads (name of study) chest Radiology: Prelim report reviewed (Impression: No pneumonia found. Mild chronic interstitial prominence may reflect prior smoking history but age-related pulmonary degenerative change also could produce such an appearance.), EMP read indepedently, See rad report Procedures - IVC sono (time) 1210 Bedside IVC sono: IVC measures (cm) (1.52), IVC collapsed c insp (cm) (0.93), Euvolemia PD MEDICAL DECISION MAKING - ED course Complexity details: reviewed old records, reviewed results, re-evaluated patient, considered differential, d/w patient, d/w family ED course: 84-year-old male with history of atrial fibrillation and peripheral edema is on Coumadin and he has had an episode today of not waking up. He either was asleep or had a syncopal episode. He has been worked up for syncope. He has a normal volume and his electrocardiogram is improved from his prior 4 days ago. A work-up is ensued. The patient appears compos mentis and in no distress. His trop is again elevated in the range consistent with renal insufficiency. I discussed the findings with the patient and his studies are essentially all unremarkable with the exception of his renal insufficiency. I do not think he had a syncopal episode today I think he was asleep and when I brought this up with the patient he smiled and indicated that he believe that was exactly what happened as he has been getting very little sleep at night because he is worried about his . She has had a stroke. He will continue to check on her throughout the night to make sure that she is still breathing and he indicates that he is only had 1 or 2 hours of sleep in the past 3 nights. He does have significant peripheral edema he has had some help with that previously getting the swelling out by wrapping his legs. Departure - Departure Disposition: 01 Home, Self Care Clinical Impression: Sleep deprivation Condition: Stable Instructions: ED Insomnia Follow-Up: Rakan Banks DO [Primary Care Provider] -
--- NOTE | 2020-03-07 12:39 | XRAY Report ---
PROCEDURE: Chest 1 View X-Ray INDICATIONS: syncope, right middle wheeze TECHNIQUE: One view of the chest was acquired. COMPARISON: 03/03/2020 FINDINGS: Surgical changes and devices: None. Lungs and pleura: No pleural effusions or pneumothorax. Lungs are clear except for a small degree o f interstitial prominence previously present. Mediastinum: Mediastinal contours appear normal. Heart size is normal. Bones and chest wall: No suspicious bony lesions. Overlying soft tissues appear unremarkable. IMPRESSION: No pneumonia found. Mild chronic interstitial prominence may reflect prior smoking history but age re lated pulmonary degenerative change also can produce such an appearance. Reviewed by: Hayden Longo MD on 03/07/2020 12:37 PM PDT Approved by: Hayden Longo MD on 03/07/2020 12:37 PM PDT Station ID: [id number]
[2020-03-07 13:16] LABS: ALBUMIN 3.8 g/dL (3.2-5.5); ALBUMIN/GLOBULIN RATIO 1.5 (1.0-2.2); BILIRUBIN,TOTAL 1.3 mg/dL (0.2-1.0); CALCIUM 8.7 mg/dL (8.5-10.3); CREATININE 2.1 mg/dL (0.6-1.2); MAGNESIUM 2.5 mg/dL (1.7-2.8); TOTAL PROTEIN 6.4 g/dL (6.7-8.2)
[2020-03-07 13:22] LABS: BASOPHILS # (AUTO) 0.1 10^3/uL (0.0-0.1); BASOPHILS % (AUTO) 0.5 %; EOSINOPHILS # (AUTO) 0.4 10^3/uL (0.0-0.7); EOSINOPHILS % (AUTO) 4.2 %; HGB - HEMOGLOBIN 10.8 g/dL (14.0-18.0); LYMPHOCYTES # (AUTO) 0.9 10^3/uL (1.5-3.5); LYMPHOCYTES % (AUTO) 9.9 %; MEAN CORPUSCULAR HEMOGLOBIN 31.9 pg (27.0-31.0); MEAN CORPUSCULAR HGB CONC 32.5 g/dL (32.0-36.0); MEAN CORPUSCULAR VOLUME 97.9 fL (80.0-94.0); MEAN PLATELET VOLUME 10.7 fL (7.4-11.4); MONOCYTES # (AUTO) 0.9 10^3/uL (0.0-1.0); MONOCYTES % (AUTO) 9.5 %; NEUTROPHILS # (AUTO) 7.2 10^3/uL (1.5-6.6); NEUTROPHILS % (AUTO) 75.5 %; PLT - PLATELET COUNT 193 10^3/uL (130-450); RED BLOOD COUNT 3.39 10^6/uL (4.70-6.10); RED CELL DISTRIBUTION WIDTH 15.7 % (12.0-15.0); WHITE BLOOD COUNT 9.5 x10^3/uL (4.8-10.8)
[2020-03-07 13:25] LABS: INR 1.8 (0.8-1.2); PT - PROTHROMBIN TIME 19.4 secs (9.9-12.6)
[2020-03-07 13:56] LABS: BILIRUBIN,URINE NEGATIVE (NEGATIVE); GLUCOSE, URINE (UA) NEGATIVE (NEGATIVE); KETONES,URINE (UA) NEGATIVE (NEGATIVE); LEUKOCYTE ESTERASE, URINE NEGATIVE (NEGATIVE); NITRITE,URINE NEGATIVE (NEGATIVE); OCCULT BLOOD,URINE SMALL (NEGATIVE); PROTEIN,URINE NEGATIVE (NEGATIVE); UROBILINOGEN,URINE 0.2 (NORMAL) E.U./dL (NORMAL)
[2020-03-07 14:00] LABS: CLARITY,URINE CLEAR (CLEAR)
[2020-03-07 14:10] LABS: BACTERIA,URINE Few /HPF (None Seen); CASTS, URINE 11-25 Hyaline Casts /LPF; SQUAMOUS EPITHELIAL CELL,UR RARE Squamous (<= Few)
[2020-03-07 15:13] VITALS: BP 147/75
== END 2020-03-07 15:50 | disposition home or self-care (01) ==
LOC: EDUNIT# → ED 11:11
DX: Z72.820 Sleep deprivation (principal); N28.9 Disorder of kidney and ureter, unspecified; G47.30 Sleep apnea, unspecified; R60.0 Localized edema; I87.8 Other specified disorders of veins; I48.91 Unspecified atrial fibrillation; Z79.01 Long term (current) use of anticoagulants; I45.2 Bifascicular block; I10 Essential (primary) hypertension; M06.9 Rheumatoid arthritis, unspecified
CPT/HCPCS: 36415; 71045; 80053; 81001; 81003; 83605; 83690; 83735; 83880; 84484; 85025; 85610; 87040; 87086; 93005; 99284

== ENCOUNTER 2020-06-05 13:45 | Outpatient (CLI) | payer MEDICARE ==
[2020-06-05 21:06] LABS: HEMOGLOBIN A1c% 5.9 % (4.27-6.07)
== END 2020-06-05 23:59 | disposition home or self-care (01) ==
LOC: LAB.R 13:45
PROVIDERS: ATTEND Family Medicine
DX: S81.801D Unspecified open wound, right lower leg, subsequent encounter (principal); E11.9 Type 2 diabetes mellitus without complications
CPT/HCPCS: 83036

== ENCOUNTER 2020-07-03 11:03 | Outpatient (CLI) | payer MEDICARE | END 2020-07-03 23:59 | disposition home or self-care (01) | LOC: LAB.R 11:03 | PROVIDERS: ATTEND Family Medicine | DX: R60.9 Edema, unspecified (principal); S81.801D Unspecified open wound, right lower leg, subsequent encounter | CPT/HCPCS: 87070; 87077; 87181; 87205 ==

== ENCOUNTER 2020-08-14 07:00 | Outpatient (CLI) | payer MEDICARE | END 2020-08-14 23:59 | disposition home or self-care (01) | LOC: LAB.R 07:00 | PROVIDERS: ATTEND Family Medicine | DX: L97.211 Non-pressure chronic ulcer of right calf limited to breakdown of skin (principal); I89.0 Lymphedema, not elsewhere classified; I87.2 Venous insufficiency (chronic) (peripheral) | CPT/HCPCS: 87070; 87077; 87181; 87205 ==

== ENCOUNTER 2020-08-28 08:00 | Outpatient (CLI) | payer MEDICARE | END 2020-08-28 23:59 | disposition home or self-care (01) | LOC: LAB.WCP 08:00 | PROVIDERS: ATTEND Family Medicine | DX: Z79.01 Long term (current) use of anticoagulants (principal) ==

== ENCOUNTER 2020-09-21 09:30 | Outpatient (CLI) | payer MEDICARE | END 2020-09-21 23:59 | disposition home or self-care (01) | LOC: LAB.R 09:30 | PROVIDERS: ATTEND Physician Assistant Medical | DX: S81.811D Laceration without foreign body, right lower leg, subsequent encounter (principal); R60.9 Edema, unspecified | CPT/HCPCS: 87070; 87077; 87181; 87205 ==

== ENCOUNTER 2020-10-01 12:37 | Emergency (ER) | payer MEDICARE ==
--- NOTE | 2020-10-01 13:26 | ED Physician Documentation ---
PD HPI SKIN - Stated complaint Stated Complaint: BLISTERS LEGS - Chief complaint Chief Complaint: Wound - History obtained from History obtained from: Patient - Additional information Additional information: Patient is sent to the emergency department by his primary care physician for chief complaint of blisters on hands and feet for the last few months. According to a report given to the nurses, patient's primary care physician is apparently concerned about Vazquez-Ricco syndrome, though no physician to physician communication has taken place prior to the patient's arrival, so I cannot verify this. He has had the blisters for the last few months and that nothing seems to be making them better. He has a history of lymphedema in his lower extremities and that he normally wears compression stockings for this. He also has a history of some sort of arthritis, which she does not remember, and sees rheumatology and has received Remicade infusions in the past. Patient denies any lesions on his torso. No fever or chills. No other complaints at this time. Review of Systems Ten Systems: 10 systems reviewed and negative Constitutional: reports: Reviewed and negative Eyes: reports: Reviewed and negative Ears: reports: Reviewed and negative Nose: reports: Reviewed and negative Throat: reports: Reviewed and negative Cardiac: reports: Reviewed and negative Respiratory: reports: Reviewed and negative GI: reports: Reviewed and negative : reports: Reviewed and negative Skin: reports: Lesions (bullous) Musculoskeletal: reports: Reviewed and negative Neurologic: reports: Reviewed and negative Psychiatric: reports: Reviewed and negative Endocrine: reports: Reviewed and negative Immunocompromised: reports: Reviewed and negative PD PAST MEDICAL HISTORY - Past Medical History Past Medical History: Yes Cardiovascular: Hypertension, Atrial fibrillation Respiratory: Asthma GI: Other : Frequency HEENT: Chronic hearing loss, Other Psych: None Musculoskeletal: Osteoarthritis, Rheumatoid arthritis Derm: None - Past Surgical History Past Surgical History: Yes Ortho: Carpal Tunnel surgery, Other - Present Medications Home Medications: Ambulatory Orders Medication Instructions Recorded Confirmed Cyanocobalamin (Vitamin B-12) 250 mcg PO DAILY 04/26/14 03/03/20 [Vitamin B-12] Lisinopril 40 mg PO BID 04/26/14 03/03/20 [place]-3 Fatty Acids [Fish Oil] 1,000 mg PO DAILY 04/26/14 03/03/20 Morphine Sulfate 15 mg PO DAILY PRN 08/02/14 03/03/20 Atorvastatin Calcium 40 mg PO QPM 10/13/16 03/03/20 Warfarin Sodium [Jantoven] 2.5 mg PO DAILY 10/13/16 03/03/20 Furosemide 40 mg PO 03/03/20 allopurinoL [Allopurinol] 100 tab PO TID 03/03/20 03/03/20 amLODIPine [Norvasc] 2.5 mg PO QPM 03/03/20 03/03/20 Potassium Chloride 20 meq PO 03/07/20 predniSONE [Prednisone] 03/07/20 - Allergies Allergies/Adverse Reactions: Allergies Allergy/AdvReac Type Severity Reaction Status Date / Time No Known Drug Allergies Allergy Verified 03/07/20 11:36 - Social History Does the pt smoke?: No Smoking Status: Never smoker Does the pt drink ETOH?: Yes Does the pt have substance abuse?: No - Immunizations Immunizations are current?: Yes - POLST Patient has POLST: No PD ED PE NORMAL - Vitals Vital signs reviewed: Yes - General General: Alert and oriented X 3, No acute distress - HEENT HEENT: Atraumatic, PERRL, EOMI - Neck Neck: Supple, no meningeal sign - Cardiac Cardiac: RRR, No murmur, Strong equal pulses - Respiratory Respiratory: No respiratory distress, Clear bilaterally - Abdomen Abdomen: Soft, Non tender, Non distended - Derm Derm: Normal color, Warm and dry, Other (Bullae hands, feet, ankles. L hand 1 cm x 2.5 cm, with serosanguineous fluid no erythema. R hand 4 mm, serous fluid, no erythema. L foot 4 cm x 2.5 cm, serous fluid, no erythema. R foot/ankle: Mult. 1-4 cm bullae, intact and ruptured. No purulence. No erythema.) - Extremities Extremities: No deformity - Neuro Neuro: Alert and oriented X 3 - Psych Psych: Normal mood, Normal affect Results - Vitals Vitals: Vital Signs - 24 hr 10/01/20 10/01/20 12:45 12:50 Temperature 36.4 C L 36.5 C Heart Rate 53 L 53 L Respiratory 14 14 Rate Blood Pressure 150/100 H 150/60 H O2 Saturation 99 99 Oxygen O2 Source Room air PD MEDICAL DECISION MAKING - ED course Complexity details: considered differential, d/w patient ED course: I discussed with the patient that his symptoms do not represent Vazquez-Ricco syndrome. The patient is on allopurinol, but clinically he does not have Vazquez-Ricco. The patient Is already established with dermatology, and I have advised him to visit the issue of his bullae with them. The patient does have chronic lower extremity edema related to his lymphedema and I feel this is likely the underlying cause of his bullae. We have discussed that if the patient would like to, he can talk to his doctor about following up with the wound care clinic. We have discussed home management and symptoms, as well as usual indications for return. Departure - Departure Disposition: 01 Home, Self Care Clinical Impression: Lymphedema, Bullous disorder, unspecified Condition: Stable Instructions: ED Lymphedema Comments: There is no evidence of a serious cause of your blistering at this time. Although you are on allopurinol, which can put you at risk for a more serious blistering disorder, your findings on exam and by history do not indicate the presence of Vazquez-Ricco syndrome. You may discuss with your primary doctor whether you should still be on the allopurinol, which is the only potentially problematic medication on your list. In the meantime, since you are already established with a acquisitions editor, it is probably a good idea for you to follow- up with them to discuss whether anything further can be done for your blisters. Most likely, these are present due to your lymphedema. You may talk to Dr. Banks about following up with the wound care clinic for help with dressing and caring for your blisters. Alternatively, you may discuss the option possibly having a home health nurse come a couple of times a week to check and dressed her wounds, as well.
[2020-10-01 14:01] VITALS: BP 140/70
== END 2020-10-01 13:59 | disposition home or self-care (01) ==
LOC: ED 12:37
DX: I89.0 Lymphedema, not elsewhere classified (principal); R23.8 Other skin changes; M06.9 Rheumatoid arthritis, unspecified; I10 Essential (primary) hypertension; I48.91 Unspecified atrial fibrillation; Z79.01 Long term (current) use of anticoagulants
CPT/HCPCS: 99281; 99284

== ENCOUNTER 2020-10-09 09:33 | Outpatient (CLI) | payer MEDICARE ==
[2020-10-09 10:25] LABS: BASOPHILS # (AUTO) 0.1 10^3/uL (0.0-0.1); BASOPHILS % (AUTO) 0.4 %; EOSINOPHILS # (AUTO) 1.7 10^3/uL (0.0-0.7); EOSINOPHILS % (AUTO) 10.7 %; HCT - HEMATOCRIT 36.8 % (42.0-52.0); LYMPHOCYTES # (AUTO) 0.7 10^3/uL (1.5-3.5); LYMPHOCYTES % (AUTO) 4.1 %; MEAN CORPUSCULAR HEMOGLOBIN 30.9 pg (27.0-31.0); MEAN CORPUSCULAR HGB CONC 32.6 g/dL (32.0-36.0); MEAN CORPUSCULAR VOLUME 94.8 fL (80.0-94.0); MEAN PLATELET VOLUME 10.6 fL (7.4-11.4); MONOCYTES # (AUTO) 0.5 10^3/uL (0.0-1.0); NEUTROPHILS # (AUTO) 12.9 10^3/uL (1.5-6.6); NEUTROPHILS % (AUTO) 81.3 %; PLT - PLATELET COUNT 244 10^3/uL (130-450); RED BLOOD COUNT 3.88 10^6/uL (4.70-6.10); RED CELL DISTRIBUTION WIDTH 15.1 % (12.0-15.0); WHITE BLOOD COUNT 15.8 x10^3/uL (4.8-10.8)
[2020-10-09 10:32] LABS: ALBUMIN 3.6 g/dL (3.2-5.5); ALBUMIN/GLOBULIN RATIO 1.2 (1.0-2.2); BILIRUBIN,DIRECT 0.1 mg/dL (0.1-0.5); BILIRUBIN,TOTAL 0.5 mg/dL (0.2-1.0); CALCIUM 8.7 mg/dL (8.5-10.3); CREATININE 2.7 mg/dL (0.6-1.2); CRP - C-REACTIVE PROTEIN 4.2 mg/dL (0-1.0); POTASSIUM 4.7 mmol/L (3.5-5.0); TOTAL PROTEIN 6.6 g/dL (6.7-8.2)
[2020-10-09 10:59] LABS: SLIDE REVIEW? Indicated
[2020-10-09 11:00] LABS: RBC MORPHOLOGY (MULTIPLE) 2+ ANISOCYTOSIS (NORMAL)
== END 2020-10-09 09:34 | disposition home or self-care (01) ==
LOC: LAB 09:33
PROVIDERS: ATTEND Physician Assistant
DX: L30.9 Dermatitis, unspecified (principal); D48.5 Neoplasm of uncertain behavior of skin
CPT/HCPCS: 36415; 80053; 80076; 81599; 82248; 83520; 85025; 85651; 86140

== ENCOUNTER 2020-10-19 18:26 | Outpatient (CLI) | payer MEDICARE | END 2020-10-19 18:27 | disposition critical access hospital (66) | LOC: EMS 18:26 | PROVIDERS: ATTEND Emergency Medicine | DX: R53.1 Weakness (principal); R41.0 Disorientation, unspecified; R46.4 Slowness and poor responsiveness | CPT/HCPCS: A0425; A0429 ==

== ENCOUNTER 2020-10-19 18:44 | Emergency (ER) | payer MEDICARE ==
--- NOTE | 2020-10-19 18:52 | ED Physician Documentation ---
PD HPI FOCAL NEURO - Stated complaint Stated Complaint: GEN WEAKNESS - History obtained from History obtained from: Patient, EMS - Additional information Additional information: 85-year-old gentleman with history of A. fib on warfarin, pacemaker in place. He also has bullous pemphigoid. He was in his usual state of health this evening around 5 PM, had been working on his taxes and he started to feel confused. For about 15 minutes he was in a fog and just did not feel like himself. He was generally weak with full symptoms. Point to complete resolved. In fact he is an excellent historian, for example he knows not only his address but the ZIP Code with the last 4 digits, he remembers that his last INR was checked a week and a half ago at which time it was 3.6 and his physician recommended going to only half dose of warfarin on Thursday. He knows the date, the president, and what he had for breakfast. Review of Systems Ten Systems: 10 systems reviewed and negative Constitutional: reports: Reviewed and negative Cardiac: reports: Reviewed and negative Respiratory: reports: Reviewed and negative PD PAST MEDICAL HISTORY - Past Medical History Cardiovascular: Hypertension, Atrial fibrillation Respiratory: Asthma GI: Other : Frequency HEENT: Chronic hearing loss, Other Psych: None Musculoskeletal: Osteoarthritis, Rheumatoid arthritis Derm: None - Past Surgical History Past Surgical History: Yes Ortho: Carpal Tunnel surgery, Other - Present Medications Home Medications: Ambulatory Orders Medication Instructions Recorded Confirmed Cyanocobalamin (Vitamin B-12) 250 mcg PO DAILY 04/26/14 03/03/20 [Vitamin B-12] Lisinopril 40 mg PO BID 04/26/14 03/03/20 [place]-3 Fatty Acids [Fish Oil] 1,000 mg PO DAILY 04/26/14 03/03/20 Morphine Sulfate 15 mg PO DAILY PRN 08/02/14 03/03/20 Atorvastatin Calcium 40 mg PO QPM 10/13/16 03/03/20 Warfarin Sodium [Jantoven] 2.5 mg PO DAILY 10/13/16 03/03/20 Furosemide 40 mg PO 03/03/20 allopurinoL [Allopurinol] 100 tab PO TID 03/03/20 03/03/20 amLODIPine [Norvasc] 2.5 mg PO QPM 03/03/20 03/03/20 Potassium Chloride 20 meq PO 03/07/20 predniSONE [Prednisone] 03/07/20 - Allergies Allergies/Adverse Reactions: Allergies Allergy/AdvReac Type Severity Reaction Status Date / Time No Known Drug Allergies Allergy Verified 03/07/20 11:36 - Social History Does the pt smoke?: No Smoking Status: Never smoker Does the pt drink ETOH?: Yes Does the pt have substance abuse?: No - Immunizations Immunizations are current?: Yes - POLST Patient has POLST: No PD ED PE NORMAL - Vitals Vital signs reviewed: Yes - General General: Alert and oriented X 3, No acute distress - HEENT HEENT: PERRL, EOMI - Neck Neck: Supple, no meningeal sign, No bony TTP - Cardiac Cardiac: RRR, No murmur - Respiratory Respiratory: No respiratory distress, Clear bilaterally - Abdomen Abdomen: Soft, Non tender - Back Back: No CVA TTP, No spinal TTP - Derm Derm: Normal color, Warm and dry - Extremities Extremities: No calf tenderness / cord, Other (Moderate edema of both legs, he is wearing compression hose.) - Neuro Neuro: Alert and oriented X 3, apartment leasing consultant 2-12 intact, No motor deficit, No sensory deficit, Normal speech Eye Opening: Spontaneous Motor: Obeys Commands Verbal: Oriented GCS Score: 15 - Psych Psych: Normal mood, Normal affect Results - Vitals Vitals: Vital Signs - 24 hr 10/19/20 10/19/20 10/19/20 18:50 20:19 21:24 Temperature 36.5 C Heart Rate 60 67 37 L Respiratory 18 16 13 Rate Blood Pressure 177/80 H 159/95 H 167/80 H O2 Saturation 100 100 100 Oxygen O2 Source Room air - EKG (time done) 1909 Rate: Rate (enter#) (60) Rhythm: Paced - Labs Labs: Laboratory Tests 10/19/20 10/19/20 10/19/20 16:59 16:59 16:59 WBC 11.1 H RBC 4.01 L Hgb 12.4 L Hct 37.4 L MCV 93.3 MCH 30.9 MCHC 33.2 RDW 15.2 H Plt Count 204 MPV 10.8 Neut # (Auto) 10.1 H Lymph # (Auto) 0.6 L Stone # (Auto) 0.3 Eos # (Auto) 0.0 Baso # (Auto) 0.0 Absolute Nucleated RBC 0.00 Nucleated RBC % 0.0 PT 45.3 H INR 4.5 H* Sodium 142 Potassium 4.8 Chloride 105 Carbon Dioxide 24 Anion Gap 13.0 BUN 68 H Creatinine 1.7 H Estimated GFR (MDRD) 38 L Glucose 118 H Calcium 9.1 Magnesium 2.2 Total Bilirubin 0.9 AST 15 ALT 14 Alkaline Phosphatase 71 Total Protein 6.6 L Albumin 3.7 Globulin 2.9 Albumin/Globulin Ratio 1.3 PD MEDICAL DECISION MAKING - ED course ED course: 85-year-old gentleman presents after a brief episode of unexplained altered mental status. He has no current physical findings and his mental status is excellent. Departure - Departure Disposition: 01 Home, Self Care Clinical Impression: Dizziness Altered mental status Qualifiers: Altered mental status type: delirium Qualified Code(s): R41.0 - Disorientation, unspecified Atrial fibrillation Qualifiers: Atrial fibrillation type: permanent Qualified Code(s): I48.21 - Permanent atrial fibrillation Condition: Stable Instructions: ED Near Syncope Vasovagal Comments: No clear cause for your symptoms tonight. The only worrisome finding is that your INR is still quite elevated now at 4.5. Skip your warfarin the next 2 days and then get it rechecked on Thursday before restarting it. Follow-up with your doctor on Thursday as well. Return for new or worsening symptoms. Discharge Date/Time: 10/19/20 21:24
[2020-10-19 19:04] LABS: BASOPHILS % (AUTO) 0.1 %; HGB - HEMOGLOBIN 12.4 g/dL (14.0-18.0); LYMPHOCYTES # (AUTO) 0.6 10^3/uL (1.5-3.5); LYMPHOCYTES % (AUTO) 5.1 %; MEAN CORPUSCULAR HEMOGLOBIN 30.9 pg (27.0-31.0); MEAN CORPUSCULAR HGB CONC 33.2 g/dL (32.0-36.0); MEAN CORPUSCULAR VOLUME 93.3 fL (80.0-94.0); MEAN PLATELET VOLUME 10.8 fL (7.4-11.4); MONOCYTES # (AUTO) 0.3 10^3/uL (0.0-1.0); MONOCYTES % (AUTO) 2.4 %; NEUTROPHILS # (AUTO) 10.1 10^3/uL (1.5-6.6); PLT - PLATELET COUNT 204 10^3/uL (130-450); RED BLOOD COUNT 4.01 10^6/uL (4.70-6.10); RED CELL DISTRIBUTION WIDTH 15.2 % (12.0-15.0); WHITE BLOOD COUNT 11.1 x10^3/uL (4.8-10.8)
[2020-10-19 19:10] LABS: PT - PROTHROMBIN TIME 45.3 secs (9.9-12.6)
[2020-10-19 19:13] LABS: INR 4.5 (0.8-1.2)
[2020-10-19 19:19] LABS: ALBUMIN 3.7 g/dL (3.2-5.5); ALBUMIN/GLOBULIN RATIO 1.3 (1.0-2.2); BILIRUBIN,TOTAL 0.9 mg/dL (0.2-1.0); CALCIUM 9.1 mg/dL (8.5-10.3); CREATININE 1.7 mg/dL (0.6-1.2); MAGNESIUM 2.2 mg/dL (1.7-2.8); TOTAL PROTEIN 6.6 g/dL (6.7-8.2)
--- NOTE | 2020-10-19 20:03 | CT Report ---
PROCEDURE: HEAD WO INDICATIONS: weak TECHNIQUE: Noncontrast 4.5 mm thick angled axial sections acquired from the foramen magnum to the vertex. For r adiation dose reduction, the following was used: automated exposure control, adjustment of mA and/or kV according to patient size. COMPARISON: 07/24/2016 MRI FINDINGS: Image quality: Excellent. CSF spaces: Basal cisterns are patent. No extra-axial fluid collections. Ventricles are normal in size and shape. Brain: No midline shift. No intracranial masses or hemorrhage. Age-appropriate cerebral cortical v olume loss. Benign bilateral basal ganglia calcifications. Melissa-white matter interface is normal. Skull and face: Calvarium and visualized facial bones are intact, without suspicious lesions. Sinuses: Visualized sinuses and mastoids are clear. IMPRESSION: 1. No acute intracranial process. 2. Age-appropriate exam. Reviewed by: Judy Yoon MD on 10/19/2020 8:02 PM PST Approved by: Judy Yoon MD on 10/19/2020 8:02 PM PST Station ID: [id number]
[2020-10-19 21:26] VITALS: BP 167/80
== END 2020-10-19 21:24 | disposition home or self-care (01) ==
LOC: EDUNIT# → ED 18:44
DX: R41.0 Disorientation, unspecified (principal); R42 Dizziness and giddiness; R79.1 Abnormal coagulation profile; I48.21 Permanent atrial fibrillation; Z79.01 Long term (current) use of anticoagulants; Z95.0 Presence of cardiac pacemaker; I10 Essential (primary) hypertension; L12.0 Bullous pemphigoid
CPT/HCPCS: 36415; 80053; 83735; 85025; 85610; 93005; 99283; 99284

== ENCOUNTER 2020-10-25 05:59 | Outpatient (CLI) | payer MEDICARE | END 2020-10-25 06:00 | disposition EMS.NT | LOC: EMS 05:59 | DX: R20.2 Paresthesia of skin (principal); F41.9 Anxiety disorder, unspecified ==

== ENCOUNTER 2020-11-19 14:47 | Outpatient (CLI) | payer MEDICARE ==
--- NOTE | 2020-11-20 17:13 | Ultrasound Report ---
PROCEDURE: Duplex Lwr Ext Arterial Bilat INDICATIONS: PVD TECHNIQUE: Color and pulse Doppler interrogation was performed of both lower extremity arterial systems, with im age documentation. COMPARISON: None FINDINGS: Right lower extremity: Common femoral artery: 53 cm/sec, with biphasic flow. Deep femoral artery: 63 cm/sec, with biphasic flow. Proximal superficial femoral artery: 93 cm/sec, with biphasic flow. Mid superficial femoral artery: 90 cm/sec, with biphasic flow. Distal superficial femoral artery: 72 cm/sec, with biphasic flow. Popliteal artery: 36, 63 cm/sec, with biphasic flow. Posterior tibial artery: Not imaged secondary to bandage Anterior tibial artery/dorsalis pedis: Not imaged secondary to bandage Melissa-scale imaging description: There is mild diffuse plaque. There is a mild to moderate popliteal artery stenosis, likely less than 50%. Left lower extremity: Common femoral artery: 69 cm/sec, with biphasic flow. Deep femoral artery: 61 cm/sec, with biphasic flow. Proximal superficial femoral artery: 76 cm/sec, with biphasic flow. Mid superficial femoral artery: 71 cm/sec, with biphasic flow. Distal superficial femoral artery: 80 cm/sec, with biphasic flow. Popliteal artery: 36 cm/sec, with biphasic flow. Posterior tibial artery: 69 cm/sec, with biphasic flow. Anterior tibial artery/dorsalis pedis: 28/46 cm/sec, with biphasic flow. Melissa-scale imaging description: Mild diffuse plaque. Extensive ankle edema. Suboptimal evaluation of left anterior tibial and posterior tibial secondary to edema. However, they both have biphasic wavef orms. IMPRESSION: 1. No evidence of significant inflow stenotic disease. 2. Right lower extremity runoff significant for mild diffuse plaque and popliteal stenosis of less th an 50%. The calf vessels are not evaluated secondary to bandages. 3. Left lower extremity runoff significant for or mild diffuse plaque between the common femoral and the distal popliteal. There is extensive calf edema. Anterior tibial and posterior tibial are subopti dino visualized secondary to edema. However, they have biphasic waveforms Reviewed by: Isauro Valdez MD on 11/20/2020 5:11 PM PDT Approved by: Isauro Valdez MD on 11/20/2020 5:11 PM PDT Station ID: [id number]
== END 2020-11-19 14:48 | disposition home or self-care (01) ==
LOC: DI 14:47
PROVIDERS: ATTEND Family Medicine
DX: I73.89 Other specified peripheral vascular diseases (principal)
CPT/HCPCS: 93925

== ENCOUNTER 2020-11-23 15:12 | Emergency (ER) | payer MEDICARE ==
[2020-11-23 15:34] VITALS: BP 155/99
--- NOTE | 2020-11-23 17:35 | ED Physician Documentation ---
History of Present Illness - Stated complaint Stated Complaint: SENT BY HOME HEALTH - Chief complaint Chief Complaint: Ext Problem - History obtained from History obtained from: Patient - History of Present Illness Pain level max: 0 Pain level now: 0 - Additonal information Additional information: Patient is an 85-year-old male presents to the emergency department with cool feet bilaterally. He has weeping edema from the lateral lower extremities. The home health nurse was concerned about his circulation and sent him in. Nothing makes it better or worse. Patient states that he had an arterial ultrasound 2 days ago. Does not know the results. He states that his feet do not look any different than they usually do. No fevers. No chills. No coughing. Review of Systems Constitutional: denies: Fever, Chills GI: denies: Vomiting, Diarrhea Skin: denies: Rash Musculoskeletal: denies: Neck pain, Back pain Neurologic: denies: Headache PD PAST MEDICAL HISTORY - Past Medical History Cardiovascular: Hypertension, Atrial fibrillation Respiratory: Asthma GI: Other : Frequency HEENT: Chronic hearing loss, Other Psych: None Musculoskeletal: Osteoarthritis, Rheumatoid arthritis Derm: None - Past Surgical History Past Surgical History: Yes Ortho: Carpal Tunnel surgery, Other - Present Medications Home Medications: Ambulatory Orders Medication Instructions Recorded Confirmed Cyanocobalamin (Vitamin B-12) 250 mcg PO DAILY 04/26/14 03/03/20 [Vitamin B-12] Lisinopril 40 mg PO BID 04/26/14 03/03/20 [place]-3 Fatty Acids [Fish Oil] 1,000 mg PO DAILY 04/26/14 03/03/20 Morphine Sulfate 15 mg PO DAILY PRN 08/02/14 03/03/20 Atorvastatin Calcium 40 mg PO QPM 10/13/16 03/03/20 Warfarin Sodium [Jantoven] 2.5 mg PO DAILY 10/13/16 03/03/20 Furosemide 40 mg PO 03/03/20 allopurinoL [Allopurinol] 100 tab PO TID 03/03/20 03/03/20 amLODIPine [Norvasc] 2.5 mg PO QPM 03/03/20 03/03/20 Potassium Chloride 20 meq PO 03/07/20 predniSONE [Prednisone] 03/07/20 - Allergies Allergies/Adverse Reactions: Allergies Allergy/AdvReac Type Severity Reaction Status Date / Time No Known Drug Allergies Allergy Verified 11/23/20 15:34 - Social History Does the pt smoke?: No Smoking Status: Never smoker Does the pt drink ETOH?: Yes Does the pt have substance abuse?: No - Immunizations Immunizations are current?: Yes - POLST Patient has POLST: No PD ED PE NORMAL - Vitals Vital signs reviewed: Yes - General General: Alert and oriented X 3, No acute distress - HEENT HEENT: Moist mucous membranes - Neck Neck: Supple, no meningeal sign - Cardiac Cardiac: RRR - Respiratory Respiratory: No respiratory distress, Clear bilaterally - Abdomen Abdomen: Soft, Non tender, Non distended - Derm Derm: Warm and dry - Extremities Extremities: Other (Weeping edema to the bilateral lower extremities. Minor wounds to the dorsum of the right foot, anterior aspect of the right lower extremity. No signs of infection. Brisk cap refill, feet are cool to the touch. Not cyanotic.) - Neuro Neuro: Alert and oriented X 3 Results - Vitals Vitals: Vital Signs - 24 hr 11/23/20 15:16 Temperature 37.4 C Heart Rate 113 H Respiratory 16 Rate Blood Pressure 155/99 H O2 Saturation 97 Oxygen O2 Source Room air - Rads (name of study) Duplex arterial ultrasound Radiology: Prelim report reviewed, EMP read contemporaneously, See rad report PD MEDICAL DECISION MAKING - ED course Complexity details: reviewed results, re-evaluated patient, considered differential, d/w patient ED course: Patient had an incomplete duplex arterial ultrasound of the bilateral lower extremities 2 days ago which did not demonstrate any acute abnormalities. His bandages were removed and the remainder of the ultrasound was performed today. He does not have flow identified in the anterior tibial artery, But does have flow distally in the dorsalis pedis artery, suggestive of collateral flow. As the patient was warmed up in the emergency department his feet were warm and pink. Brisk cap refill. No signs of acute obstruction. Has peripheral vascular disease. We will have him follow-up with his doctor for further care. Neurovascularly intact. Patient counseled regarding signs and symptoms for which I believe and urgent re-evaluation would be necessary. Patient with good understanding of and agreement to plan and is comfortable going home at this time This document was made in part using voice recognition software. While efforts are made to proofread this document, sound alike and grammatical errors may occur. 1. No flow identified within the anterior tibial artery in the lower leg likely reflecting occlusion. 2. Flow demonstrated within the dorsalis pedis artery more distally suggestive of collateral flow. 3. Patent flow demonstrated within the posterior tibial artery. Departure - Departure Disposition: 01 Home, Self Care Clinical Impression: Peripheral arterial disease Condition: Good Instructions: ED PVD Follow-Up: Rakan Banks DO [Primary Care Provider] - Within 1 week Comments: Your feet are pink and warm here. Your ultrasound from 2 days ago shows the following: IMPRESSION: 1. No evidence of significant inflow stenotic disease. 2. Right lower extremity runoff significant for mild diffuse plaque and popliteal stenosis of less than 50%. The calf vessels are not evaluated secondary to bandages. 3. Left lower extremity runoff significant for or mild diffuse plaque between the common femoral and the distal popliteal. There is extensive calf edema. Anterior tibial and posterior tibial are suboptimally visualized secondary to edema. However, they have biphasic waveforms We reimaged the portion that was difficult to see 2 days ago and you have flow in your calf vessels but diminished in your anterior tibial artery. Follow up with your doctor for further care. Discharge Date/Time: 11/23/20 18:01
--- NOTE | 2020-11-23 17:51 | Ultrasound Report ---
PROCEDURE: Duplex Lwr Ext Arterial RT INDICATIONS: R LE cold, recent incomplete arterial US TECHNIQUE: Color and pulse Doppler interrogation was performed of the distal right lower extremity arterial syst em, with image documentation. Proximal vessels were evaluated on recent comparison study with the lo wer leg not evaluated at that time due to overlying bandages. COMPARISON: 11/19/2020 FINDINGS: Posterior tibial artery proximal: 52 cm/sec, with biphasic flow. Posterior tibial artery mid: 34 cm/sec, with biphasic flow. Posterior tibial artery distal: 43 cm/sec, with biphasic flow. Anterior tibial artery: No flow visualized along its expected course in the lower leg. Dorsalis pedis: 43 cm/second with biphasic flow Melissa-scale imaging description: There is extensive atherosclerotic vascular calcification throughout the lower leg. IMPRESSION: 1. No flow identified within the anterior tibial artery in the lower leg likely reflecting occlusion. 2. Flow demonstrated within the dorsalis pedis artery more distally suggestive of collateral flow. 3. Patent flow demonstrated within the posterior tibial artery. Reviewed by: Francesco Richardson MD on 11/23/2020 5:50 PM PDT Approved by: Francesco Richardson MD on 11/23/2020 5:50 PM PDT Station ID: [id number]
== END 2020-11-23 18:01 | disposition home or self-care (01) ==
LOC: ED 15:12
DX: I73.9 Peripheral vascular disease, unspecified (principal); R60.0 Localized edema; I10 Essential (primary) hypertension; I48.91 Unspecified atrial fibrillation; Z79.01 Long term (current) use of anticoagulants
CPT/HCPCS: 99282; 99284

== ENCOUNTER 2020-12-02 07:13 | Outpatient (CLI) | payer MEDICARE | END 2020-12-02 07:14 | disposition critical access hospital (66) | LOC: EMS 07:13 | DX: R60.0 Localized edema (principal); L53.9 Erythematous condition, unspecified | CPT/HCPCS: A0425; A0429 ==

== ENCOUNTER 2020-12-02 07:35 | Inpatient (IN) | payer MEDICARE ==
--- NOTE | 2020-12-02 07:57 | ED Physician Documentation ---
History of Present Illness - Stated complaint Stated Complaint: LEG PX - Chief complaint Chief Complaint: General - History obtained from History obtained from: Patient, EMS - Additonal information Additional information: Patient is brought to the emergency department by EMS for chief complaint of left leg pain. The patient has a history of chronic lower extremity edema and peripheral vascular disease which is treated at home by his and home health senior assistant manager. Patient has chronic sores on his right lower leg, but usually, his left leg is in a little better condition. However, the patient states that he has had increasing pain in the left calf over the last 24 hours and now this is wrapping around to the anterior portion of the leg as well. The patient does not think the color is any different, but EMS was called, due to concerns that the redness was more intense. Patient also had some chills overnight and a measured temperature of 100.6 at home. He is afebrile here. The patient denies feeling ill in any other way. He is not known to have a DVT history. The patient is currently on Coumadin for atrial fibrillation. He states the leg does not seem to be any more swollen than usual. No other complaints at this time. Review of Systems Ten Systems: 10 systems reviewed and negative Constitutional: reports: Reviewed and negative Eyes: reports: Reviewed and negative Ears: reports: Reviewed and negative Nose: reports: Reviewed and negative Throat: reports: Reviewed and negative Cardiac: reports: Reviewed and negative Respiratory: reports: Reviewed and negative GI: reports: Reviewed and negative : reports: Reviewed and negative Skin: reports: Reviewed and negative Musculoskeletal: reports: Reviewed and negative Neurologic: reports: Reviewed and negative Psychiatric: reports: Reviewed and negative Endocrine: reports: Reviewed and negative Immunocompromised: reports: Reviewed and negative PD PAST MEDICAL HISTORY - Past Medical History Cardiovascular: Hypertension, Atrial fibrillation Respiratory: Asthma GI: Other : Renal insuffiency, Frequency HEENT: Chronic hearing loss, Other Psych: None Musculoskeletal: Osteoarthritis, Rheumatoid arthritis Derm: None - Past Surgical History Past Surgical History: Yes Ortho: Carpal Tunnel surgery, Other - Present Medications Home Medications: Ambulatory Orders Medication Instructions Recorded Confirmed Cyanocobalamin (Vitamin B-12) 250 mcg PO DAILY 04/26/14 12/02/20 [Vitamin B-12] [place]-3 Fatty Acids [Fish Oil] 1,000 mg PO DAILY 04/26/14 12/02/20 Atorvastatin Calcium 40 mg PO QPM 10/13/16 12/02/20 Warfarin Sodium [Jantoven] 2.5 mg PO DAILY 10/13/16 12/02/20 Furosemide 40 mg PO DAILY 03/03/20 12/02/20 Potassium Chloride 20 meq PO DAILY 03/07/20 12/02/20 predniSONE [Prednisone] 1 tab PO DAILY 03/07/20 12/02/20 Metoprolol Tartrate [Lopressor] 25 mg PO BID 12/02/20 12/02/20 Morphine ER [Morphine Sulfate ER] 15 mg PO BID 12/03/20 12/03/20 - Allergies Allergies/Adverse Reactions: Allergies Allergy/AdvReac Type Severity Reaction Status Date / Time No Known Drug Allergies Allergy Verified 12/02/20 07:54 - Social History Does the pt smoke?: No Smoking Status: Never smoker Does the pt drink ETOH?: Yes Does the pt have substance abuse?: No - Immunizations Immunizations are current?: Yes - POLST Patient has POLST: No PD ED PE NORMAL - Vitals Vital signs reviewed: Yes - General General: Alert and oriented X 3, No acute distress - HEENT HEENT: Atraumatic, PERRL, EOMI, Moist mucous membranes - Neck Neck: Supple, no meningeal sign - Cardiac Cardiac: RRR, No murmur, Strong equal pulses - Respiratory Respiratory: No respiratory distress, Clear bilaterally - Abdomen Abdomen: Soft, Non tender, Non distended - Derm Derm: Other (Lower extremities both warm. Intense erythema from ankle to approximately 4 cm distal to knee on left. Sparing of foot. No crepitus or induration. Left lower leg with blotchy bluish-purple discoloration and skin breakdown. Warm.) - Extremities Extremities: No deformity, Other (Marked edema bilateral lower extremities, Symmetrical. Exquisite tenderness of left lower leg over erythematous area.) - Neuro Neuro: Alert and oriented X 3 - Psych Psych: Normal mood, Normal affect Results - Vitals Vitals: Oxygen O2 Source Room air - Labs Labs: Microbiology 12/02/20 08:00 Blood Culture - Preliminary Blood NO GROWTH AFTER 2 DAYS Laboratory Tests 12/02/20 12/02/20 12/02/20 08:00 08:00 08:00 WBC 12.6 H RBC 4.32 L Hgb 13.5 L Hct 39.9 L MCV 92.4 MCH 31.3 H MCHC 33.8 RDW 16.9 H Plt Count 160 MPV 10.7 Neut # (Auto) 11.8 H Lymph # (Auto) 0.2 L [place] # (Auto) 0.4 Eos # (Auto) 0.1 Baso # (Auto) 0.0 Absolute Nucleated RBC 0.25 Nucleated RBC % 2.0 PT INR Sodium 138 Potassium 4.6 Chloride 104 Carbon Dioxide 23 Anion Gap 11.0 BUN 84 H* Creatinine 2.8 H Estimated GFR (MDRD) 22 L Glucose 100 Lactic Acid 2.8 H Calcium 8.6 Total Bilirubin 1.1 H AST 25 ALT 27 Alkaline Phosphatase 62 Total Protein 5.7 L Albumin 3.1 L Globulin 2.6 Albumin/Globulin Ratio 1.2 Lipase 29 12/02/20 08:00 WBC RBC Hgb Hct MCV MCH MCHC RDW Plt Count MPV Neut # (Auto) Lymph # (Auto) [place] # (Auto) Eos # (Auto) Baso # (Auto) Absolute Nucleated RBC Nucleated RBC % PT 27.9 H INR 2.6 H Sodium Potassium Chloride Carbon Dioxide Anion Gap BUN Creatinine Estimated GFR (MDRD) Glucose Lactic Acid Calcium Total Bilirubin AST ALT Alkaline Phosphatase Total Protein Albumin Globulin Albumin/Globulin Ratio Lipase - Rads (name of study) CXR Radiology: Final report received, EMP read indepedently, See rad report US LLE Radiology: Final report received, EMP read indepedently, See rad report (no dvt) PD MEDICAL DECISION MAKING - ED course Complexity details: reviewed results, re-evaluated patient, considered differential, d/w patient ED course: There was some degree of conflict between the patient's assessment of his leg and the report from EMS, with regard to the color. Given the patient's tenderness, however, and his risk of infection, I did feel he should be worked up for cellulitis, as well as for DVT, even though the likelihood of DVT is low, given his status on Coumadin. The patient was found to have an elevated white blood cell count at 12.6 with Acid level of 2.8, which was somewhat elevated, as well. His INR was 2.6. Ultrasound of his left lower extremity was somewhat limited by patient's intolerance of pressure from the probe, but no obvious DVT was found. I did review patient's records and found that he had also had an arterial study done a couple of weeks ago which showed no arterial blockages. The patient was found to have an elevated BUN of 84 and creatinine of 2.8. It did appear that the patient had had longstanding renal insufficiency but creatinine seem to have been trending up since last summer. Patient's previous high creatinine had been 2.7, with 2 other readings this year at 2.1, and as such, it did not seem that the patient was in need of dialysis. Nonetheless, I felt this should be addressed, and I did give the patient initially 500 cc bolus point and normal saline. Pt's chest x-ray showed no pulmonary edema. The patient was also treated with a weight-based loading dose of vancomycin for presumed cellulitis, based on his fever at home, chills, elevated white blood cell count, and exquisite tenderness in his left lower extremity with questional worsening of redness. I spoke with Dr. Reynaga, as I felt the patient ought to be at least observed in the hospital to be sure that he is not trending toward sepsis. Dr. Reynaga did accept the patient for admission. Departure - Departure Disposition: [facility] Clinical Impression: Cellulitis, Acute on chronic renal insufficiency Condition: Serious Discharge Date/Time: 12/02/20 09:55
[2020-12-02 08:10] LABS: BASOPHILS % (AUTO) 0.2 %; EOSINOPHILS # (AUTO) 0.1 10^3/uL (0.0-0.7); EOSINOPHILS % (AUTO) 0.6 %; HCT - HEMATOCRIT 39.9 % (42.0-52.0); HGB - HEMOGLOBIN 13.5 g/dL (14.0-18.0); LYMPHOCYTES # (AUTO) 0.2 10^3/uL (1.5-3.5); LYMPHOCYTES % (AUTO) 1.8 %; MEAN CORPUSCULAR HEMOGLOBIN 31.3 pg (27.0-31.0); MEAN CORPUSCULAR HGB CONC 33.8 g/dL (32.0-36.0); MEAN CORPUSCULAR VOLUME 92.4 fL (80.0-94.0); MEAN PLATELET VOLUME 10.7 fL (7.4-11.4); MONOCYTES # (AUTO) 0.4 10^3/uL (0.0-1.0); MONOCYTES % (AUTO) 2.8 %; NEUTROPHILS # (AUTO) 11.8 10^3/uL (1.5-6.6); NRBC ABSOLUTE COUNT (AUTO) 0.25 x10^3/uL; PLT - PLATELET COUNT 160 10^3/uL (130-450); RED BLOOD COUNT 4.32 10^6/uL (4.70-6.10); RED CELL DISTRIBUTION WIDTH 16.9 % (12.0-15.0); WHITE BLOOD COUNT 12.6 x10^3/uL (4.8-10.8)
[2020-12-02 08:15] LABS: INR 2.6 (0.8-1.2); PT - PROTHROMBIN TIME 27.9 secs (9.9-12.6)
[2020-12-02 08:23] LABS: ALBUMIN 3.1 g/dL (3.2-5.5); ALBUMIN/GLOBULIN RATIO 1.2 (1.0-2.2); BILIRUBIN,TOTAL 1.1 mg/dL (0.2-1.0); CALCIUM 8.6 mg/dL (8.5-10.3); CREATININE 2.8 mg/dL (0.6-1.2); POTASSIUM 4.6 mmol/L (3.5-5.0); TOTAL PROTEIN 5.7 g/dL (6.7-8.2)
[2020-12-02] MEDS ORDERED: SODIUM CHLORIDE 0.9% 500 ML IV STA (08:41)
--- NOTE | 2020-12-02 09:13 | Ultrasound Report ---
PROCEDURE: Duplex Ext Veins Left INDICATIONS: pain/swelling TECHNIQUE: Real-time imaging, as well as color and pulse Doppler interrogation, were performed of the lower extr emity deep veins from the inguinal ligament to the popliteal fossa. COMPARISON: None. FINDINGS: The deep veins are normally compressible, and free of intraluminal thrombus. Color and pu lse Doppler demonstrate normal phasic intraluminal flow. There is normal augmentation response to di stal compression maneuver. Prominent soft tissue edema is seen, which limits evaluation of the calf veins. IMPRESSION: No findings of deep venous thrombosis are seen. Note: Concordant preliminary findings given by the mechanical specialist upon the completion of the examination to Dr. Arce at 9:00 AM on 12/02/2020. Reviewed by: Benigno Oneill MD on 12/02/2020 8:12 AM [facility] Approved by: Benigno Oneill MD on 12/02/2020 8:12 AM [facility] Station ID: [id number]
--- NOTE | 2020-12-02 09:14 | XRAY Report ---
PROCEDURE: Chest 1 View X-Ray INDICATIONS: chest pain TECHNIQUE: One view of the chest was acquired. COMPARISON: 03/05/2020, 03/03/2020 FINDINGS: Surgical changes and devices: A pacer device can be seen. Lungs and pleura: On the semiupright images, no large pneumothorax or large pleural effusions can be seen. No focal infiltrates are seen. Mediastinum: Mediastinal contours appear normal. Heart size is normal. Calcification is seen of th e aortic arch. Bones and chest wall: No suspicious bony lesions. Age-appropriate degenerative changes are seen. Overlying soft tissues appear unremarkable. IMPRESSION: Portable chest within normal limits for age. Postoperative and degenerative changes are seen. Reviewed by: Benigno Oneill MD on 12/02/2020 8:13 AM [facility] Approved by: Benigno Oneill MD on 12/02/2020 8:13 AM [facility] Station ID: [id number]
[2020-12-02] MEDS ORDERED: VANCOMYCIN INJ 3 GM in SODIUM CHLORIDE 0.9% 500 ML IV ONE (09:17)
--- NOTE | 2020-12-02 09:28 | HISTORY & PHYSICAL EXAMINATION ---
Chief Complaint - Chief Complaint Chief Complaint: left lower extremity redness and pain. 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 The pain was very significant last night such that he was unable to sleep. He also reported having chills last night. He had a fever when EMS checked upon arrival to his residence. In the ED he was found to have a white blood cell count of 12.8, lactic acid of 2.8, creatinine 2.8, significant bilateral lower extremity edema and extreme tenderness in the left lower extremity. As a result he was presented for admission for further treatment. At bedside he is resting comfortably. He denies chest pain, dyspnea, abdominal pain, nausea, vomiting. History - Past Medical History Cardiovascular: reports: Hypertension, High cholesterol, Atrial fibrillation, Other (Tachy-Kory s/p pacemaker) Respiratory: reports: Asthma GI: reports: Other : reports: Renal insuffiency, Frequency HEENT: reports: Chronic hearing loss, Other Psych: reports: None Musculoskeletal: reports: Osteoarthritis, Rheumatoid arthritis Derm: reports: None MRSA Hx?: No - Past Surgical History Ortho: reports: Hip replacement (right), Carpal Tunnel surgery, Other Cardiovascular: reports: Pacemaker - Family & Social History Family History Comment/Other: Maternal grandfather, mother and brother had Alzheimer's. His father and another of his brothers had pacemakers placed. Living arrangement: At home Living Situation: With spouse/s.o. Social History Notes: He does not consume tobacco products or recreational larios bstance. He drinks wine occasionally with dinner - POLST Patient has POLST: No POLST Status: DNR Meds/Allgy - Home Medications Home Medications: Ambulatory Orders Medication Instructions Recorded Confirmed Cyanocobalamin (Vitamin B-12) 250 mcg PO DAILY 04/26/14 12/02/20 [Vitamin B-12] [place]-3 Fatty Acids [Fish Oil] 1,000 mg PO DAILY 04/26/14 12/02/20 Morphine Sulfate 15 mg PO DAILY PRN 08/02/14 12/02/20 Atorvastatin Calcium 40 mg PO QPM 10/13/16 12/02/20 Warfarin Sodium [Jantoven] 2.5 mg PO DAILY 10/13/16 12/02/20 Furosemide 40 mg PO DAILY 03/03/20 12/02/20 Potassium Chloride 20 meq PO DAILY 03/07/20 12/02/20 predniSONE [Prednisone] 1 tab PO DAILY 03/07/20 12/02/20 Metoprolol Tartrate [Lopressor] 25 mg PO BID 12/02/20 12/02/20 - Allergies Allergies/Adverse Reactions: Allergies Allergy/AdvReac Type Severity Reaction Status Date / Time No Known Drug Allergies Allergy Verified 12/02/20 07:54 Review of Systems - Constitutional Constitutional: reports: Fever, Chills - Eyes Eyes: denies: Pain, Dipolpia - Cardiovascular Cariovascular: reports: Irregular heart rate, Edema (chronic lymphedema) - Respiratory Respiratory: denies: Cough, Sputum production, Wheezing, SOB at rest, SOB with exertion - Gastrointestinal Gastrointestinal: denies: Abdominal pain, Abdominal distention, Constipation, Diarrhea, Nausea, Vomiting - Genitourinary Genitourinary: denies: Dysuria, Frequency, Urgency, Hematuria - Musculoskeletal Musculoskeletal: denies: Muscle pain, Back pain - Integumentary Integumentary: reports: Other (ulcers on right lower extremity left lower extremity erythematous) - Neurological Neurological: denies: Focal weakness, Headache - Psychiatric Psychiatric: denies: Depression, Anxiety - Endocrine Endocrine: denies: Polyuria, Polydypsia - Hematologic/Lymphatic Hematologic/Lymphatic: denies: Anemia, Bruising Prior Level of Functionality: Patient is dependent for activities of daily living. There is a visiting nurse who comes in a couple of times weekly. Exam - Vital Signs Vital Signs: Vital Signs x48h Temp Pulse Resp BP Pulse Ox 12/02/20 09:19 36.0 C L 92 18 94/56 L 99 12/02/20 08:02 83 16 99 12/02/20 07:43 36.1 C L 96 29 H 105/58 L 98 - Physical Exam General Appearance: positive: Alert, Moderate distress Eyes Bilateral: positive: PERRL, EOMI ENT: positive: Dry mucous membranes Neck: positive: No JVD, Trachea midline Respiratory: positive: Chest non-tender, No respiratory distress, Breath sounds nml. negative: Wheezes, Rales, Rhonchi Cardiovascular: positive: Irregularly irregular Abdomen: positive: Non-tender, No organomegaly, Nml bowel sounds, No distention. negative: Guarding, Rebound Back: positive: Nml inspection Skin: positive: Other (ulcers/ wound on right lower extremity. Right foot cold to touch. left lower extremity from mid-edwards distally is erythematous) Extremities: positive: Pedal edema, Other (lower extremity lymphedema: Chronic >3+ bilaterally tender to palpation) Neurologic/Psychiatric: positive: Oriented x3, Mood/affect nml Conclusion/Plan - Problem List (1) Sepsis Conclusion/Plan: Secondary to left lower extremity cellulitis. Patient had a WBC of 12.8, lactic acid 2.8, and a reported fever at home. Patient was started on vancomycin in the ED. We will continue with pharmacy to dose. Gentle hydration with normal saline at 83 mils per hour due to patient's chronic lymphedema. We will trend lactic acid. Blood cultures pending. (2) Cellulitis of left lower extremity Conclusion/Plan: Chronic lymphedema makes him susceptible. On vancomycin. Pharmacy to dose. Gentle IV hydration. Blood cultures pending. We will trend lactic acid. (3) Acute on chronic renal insufficiency Conclusion/Plan: Patient appears to be intravascularly volume depleted despite chronic lower extremity lymphedema. His creatinine on 10/19/20 was 1.7. Today it is 2.8, BUN of 84, eGFR 22. Hold Lasix. Patient receiving gentle IV hydration with normal saline at 83 mils per hour. Anticipating improvement. We will check a.m. labs. (4) Hyperlipidemia Conclusion/Plan: On atorvastatin 40 mg p.o. every afternoon (5) Hypertension Conclusion/Plan: We will hold patient's Lasix and metoprolol tartrate while actively hydrating the patient for acute renal failure and sepsis (6) Rheumatoid arthritis Conclusion/Plan: Patient has been on Remicade and methotrexate in the past with no success. 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 (7) Atrial fibrillation Conclusion/Plan: Will resume patient's metoprolol tartrate 25 mg p.o. twice daily when appropriate to do so. It is currently on hold while actively hydrating the patient for sepsis and acute on chronic renal failure. Continue patient's Coumadin. INR today is 2.6. Qualifiers: Atrial fibrillation type: permanent Qualified Code(s): I48.21 - Permanent atrial fibrillation (8) Bullous disorder, unspecified Conclusion/Plan: On prednisone 10mg po daily. Will hold for now. If patient becomes significantly hypotensive and not responding to fluids, Will order hydrocortisone (9) Lymphedema Conclusion/Plan: Chronic. Lasix held currently while hydrating for sepsis (10) Peripheral arterial disease Conclusion/Plan: Left lower extremity pain: Venous Duplex of left lower extremity done today 12/02/20 was negative for DVT Patient had presented to the ED on 11/23/20 with right foot cold: Arterial Duplex of Right lower extremity done on 11/23/20 showed No flow in the anterior tibial artery reflecting occluision. Flow was demonstrated within the dorsalis pedis artery more distally, suggestive of collateral flow. This was a follow up study to an incomplete study done on 11/20/20. It was determined that there was no acute occlusion. He was to follow up with his doctor for further care. He is on coumadin with an INR of 2.6 today. - Lab Results Fish Bones: 12/02/20 08:00 12/02/20 08:00 Core Measures - Anticipated LOS I expect patient to be DC'd or transferred within 96 hours.: Yes - DVT/VTE - Prophylaxis VTE/DVT Device ordered at admit?: No Not Ordered - Medical Reason: Contraindicated (Bilateral lower ext ulcer, cellulitis, pain, edema) VTE/DVT Prophylaxis med ordered at admit?: Yes
[2020-12-02] MEDS: SODIUM CHLORIDE FLUSH 0.9% 10 ML SYRINGE IVP PRN (10:19)
[2020-12-02 10:52] LABS: B. PARAPERTUSSIS- RESP PCR PAN NOT DETECTED; B. PERTUSSIS- RESP PCR PANEL NOT DETECTED; C. PNEUMONIAE- RESP PCR PANEL NOT DETECTED; CORONAVIRUS 229E-RESP PCR NOT DETECTED; CORONAVIRUS HKU1-RESP PCR NOT DETECTED; CORONAVIRUS NL63-RESP PCR NOT DETECTED; CORONAVIRUS OC43-RESP PCR NOT DETECTED; HUMAN METAPNEUMOVIRUS NOT DETECTED; INFLUENZA A- RESP PCR PANEL NOT DETECTED; INFLUENZA B - RESP PCR PANEL NOT DETECTED; M. PNEUMONIAE- RESP PCR PANEL NOT DETECTED; PARAINFLUENZA VIRUS 1 NOT DETECTED; PARAINFLUENZA VIRUS 2 NOT DETECTED; PARAINFLUENZA VIRUS 3 NOT DETECTED; PARAINFLUENZA VIRUS 4 NOT DETECTED; RHINOVIRUS/ENTEROVIRUS NOT DETECTED; RSV- RESP PCR PANEL NOT DETECTED; SARS-CoV-2 -RESP PCR PANEL NOT DETECTED
[2020-12-02] MEDS ORDERED: HYDROcod/ACETAM 7.5 MG/325 MG TABLET PO PRN (11:55)
[2020-12-02] MEDS ORDERED: SODIUM CHLORIDE 0.9% 1,000 ML IV SCH ×2 (12:00→12:41)
[2020-12-02] MEDS: CEFEPIME 2 GM in SODIUM CHLORIDE 0.9% MINIBAG 100 ML IV SCH ×2 (12:49→22:08)
--- NOTE | 2020-12-02 15:32 | PHARMACY PROGRESS NOTE ---
- Therapy Status Vancomycin regimen day #: 1 Therapy status: Awaiting steady state Basis for treatment: Empirical Treatment indication: Cellulitis/Sepsis Concurrent antibiotics: Cefepime - LAVINIA Risk Risk level for Acute Kidney Injury: High Acute Kidney Injury risk factors: Baseline CrCl <50, Goal trough >15, Sepsis - Monitoring and Recommendation Clinical response to treatment: I&O Previous 24 hours 11/30/20 12/01/20 12/02/20 23:59 23:59 23:59 Intake Total 1220 Output Total 175 Balance 1045 Lab Results 12/02/20 08:00 BUN 84 H* Creatinine 2.8 H Estimated GFR (MDRD) 22 L Monitoring plan: Daily serum creatinine, Suggest ongoing fluid replacement Next trough due (date/time): Random level with morning labs Areas for additional monitoring: IV to PO when appropriate, Therapy de- escalation based on culture results
--- NOTE | 2020-12-02 15:33 | PHARMACY PROGRESS NOTE ---
- Best Possible Medication History Admit Date and Time: 12/02/20 0919 Processed by: Nursing Medication History completed: Yes As the person ultimately responsible for medication therapy, providers are able to order a medication from an existing home medication list in [facility] via the "Reconcile Routine" prior to Confirmation of that medication by application support intern. Such practice is discouraged except when the physician, in their clinical judgment, deems that a medical need exists for a medication without regard to previous use.
[2020-12-02] MEDS ORDERED: SODIUM CHLORIDE 0.9% 1,000 ML IV ONE (17:04)
[2020-12-02] MEDS ORDERED: SODIUM CHLORIDE FLUSH 0.9% 10 ML SYRINGE IVP PRN (17:11)
[2020-12-02] MEDS: SODIUM CHLORIDE FLUSH 0.9% 10 ML SYRINGE IVP SCH (17:25)
[2020-12-02 17:37] LABS: BASOPHILS % (AUTO) 0.2 %; EOSINOPHILS % (AUTO) 0.1 %; HCT - HEMATOCRIT 36.2 % (42.0-52.0); HGB - HEMOGLOBIN 12.1 g/dL (14.0-18.0); LYMPHOCYTES % (AUTO) 4.3 %; MEAN CORPUSCULAR HGB CONC 33.4 g/dL (32.0-36.0); MEAN CORPUSCULAR VOLUME 95.8 fL (80.0-94.0); MEAN PLATELET VOLUME 11.3 fL (7.4-11.4); MONOCYTES % (AUTO) 1.6 %; NEUTROPHILS % (AUTO) 92.3 %; PLT - PLATELET COUNT 122 10^3/uL (130-450); RED BLOOD COUNT 3.78 10^6/uL (4.70-6.10); RED CELL DISTRIBUTION WIDTH 17.5 % (12.0-15.0); WHITE BLOOD COUNT 19.8 x10^3/uL (4.8-10.8)
[2020-12-02 17:39] LABS: ABNORMAL LYMPHS % (MANUAL) 0 %
[2020-12-02 17:47] LABS: CALCIUM 7.9 mg/dL (8.5-10.3); CREATININE 2.7 mg/dL (0.6-1.2); POTASSIUM 5.2 mmol/L (3.5-5.0)
[2020-12-02 18:27] LABS: BAND NEUTROPHILS % (MANUAL) 17 %; LYMPHOCYTES # (MANUAL) 0.8 10^3/uL (1.5-3.5); LYMPHOCYTES % (MANUAL) 4 %; METAMYELOCYTES % (MANUAL) 1 %; MONOCYTES # (MANUAL) 0.8 10^3/uL (0.0-1.0); MYELOCYTES % (MANUAL) 1 %; NEUTROPHILS # (MANUAL) 17.8 10^3/uL (1.5-6.6)
[2020-12-02 18:32] LABS: DIFFERENTIAL COMMENT MANUAL DIFFERENTIAL; PLATELET ESTIMATE, MANUAL DECREASED (<130,000) (NORMAL); PLATELET MORPHOLOGY 1+ GIANT PLATELETS (NORMAL)
[2020-12-02] MEDS: metroNIDAZOLE 500 MG/100 ML 500 MG/100 ML BAG IV SCH (18:45)
[2020-12-02] MEDS: ATORVASTATIN 40 MG TABLET PO SCH (21:17)
[2020-12-02] MEDS: MORPHINE IR 15 MG TABLET PO PRN (21:17)
--- NOTE | 2020-12-02 22:24 | ANESTHESIA PROCEDURE NOTE ---
Anesth Central Line Template - Central Line Central Line Preparation: Consent Obtained, Time out completed, Ultrasound used, Sterile prep and drape Central line location: Right IJ Central line type: Triple lumen Central line catheter tip site resides: Superior vena cava (SVC) Central line aftercare: Secured, Placement confirmed, No pneumothorax, No complications, Bundle checklist complete, Pt tolerated well (20cm placed to 16cm, secured with suture x3, tegaderm. Pt tolerated without complication/complaint.)
[2020-12-02] MEDS: SODIUM CHLORIDE 0.9% 1,000 ML IV SCH (23:43)
[2020-12-03] MEDS: SODIUM CHLORIDE FLUSH 0.9% 10 ML SYRINGE IVP SCH ×6 (00:11→17:45)
[2020-12-03 00:18] LABS: CALCIUM 7.6 mg/dL (8.5-10.3); CREATININE 2.4 mg/dL (0.6-1.2); POTASSIUM 4.7 mmol/L (3.5-5.0)
[2020-12-03] MEDS: metroNIDAZOLE 500 MG/100 ML 500 MG/100 ML BAG IV SCH ×3 (01:24→18:20)
[2020-12-03] MEDS ORDERED: SODIUM CHLORIDE FLUSH 0.9% 10 ML SYRINGE IVP PRN (02:35)
[2020-12-03] MEDS: SODIUM CHLORIDE 0.9% 1,000 ML IV SCH ×3 (02:35→21:30)
[2020-12-03 05:17] LABS: BASOPHILS # (AUTO) 0.1 10^3/uL (0.0-0.1); BASOPHILS % (AUTO) 0.3 %; EOSINOPHILS # (AUTO) 0.1 10^3/uL (0.0-0.7); EOSINOPHILS % (AUTO) 0.3 %; HCT - HEMATOCRIT 30.8 % (42.0-52.0); HGB - HEMOGLOBIN 10.3 g/dL (14.0-18.0); LYMPHOCYTES # (AUTO) 0.7 10^3/uL (1.5-3.5); LYMPHOCYTES % (AUTO) 3.6 %; MEAN CORPUSCULAR HEMOGLOBIN 31.3 pg (27.0-31.0); MEAN CORPUSCULAR HGB CONC 33.4 g/dL (32.0-36.0); MEAN CORPUSCULAR VOLUME 93.6 fL (80.0-94.0); MEAN PLATELET VOLUME 10.4 fL (7.4-11.4); MONOCYTES # (AUTO) 0.4 10^3/uL (0.0-1.0); MONOCYTES % (AUTO) 2.3 %; NEUTROPHILS # (AUTO) 16.5 10^3/uL (1.5-6.6); NEUTROPHILS % (AUTO) 88.9 %; NRBC ABSOLUTE COUNT (AUTO) 0.07 x10^3/uL; NUCLEATED RED BLOOD CELLS AUTO 0.4 /100WBC; PLT - PLATELET COUNT 102 10^3/uL (130-450); RED BLOOD COUNT 3.29 10^6/uL (4.70-6.10); RED CELL DISTRIBUTION WIDTH 17.3 % (12.0-15.0); WHITE BLOOD COUNT 18.5 x10^3/uL (4.8-10.8)
[2020-12-03 05:18] LABS: INR 2.8 (0.8-1.2); PT - PROTHROMBIN TIME 29.6 secs (9.9-12.6)
[2020-12-03 05:23] LABS: CALCIUM 7.9 mg/dL (8.5-10.3); CREATININE 2.2 mg/dL (0.6-1.2); POTASSIUM 4.4 mmol/L (3.5-5.0)
[2020-12-03 05:26] LABS: ALBUMIN 2.2 g/dL (3.2-5.5)
[2020-12-03 05:38] LABS: PLATELET ESTIMATE, MANUAL DECREASED (<130,000) (NORMAL); PLATELET MORPHOLOGY NORMAL APPEARANCE (NORMAL)
--- NOTE | 2020-12-03 08:03 | PROVIDER PROGRESS NOTE ---
Assessment/Plan - Problem List (1) Sepsis Assessment/Plan: Secondary to left lower extremity cellulitis. Patient's White blood cell count went from 12.6 to 19.8 yesterday. Today it is 18.6 His lactic acid improved from 2.8 > 4.4 > 4.9 > 3.5 > 1.7 When his lactic acid became elevated yesterday, cefepime and Flagyl were added to vancomycin. Patient is receiving IV hydration was increased to 100 mils per hour. Blood cultures are no growth to date. Anticipating 2 to 3 more days of hospitalist (2) Cellulitis of left lower extremity Assessment/Plan: Chronic lymphedema makes him susceptible. On vancomycin with pharmacy to dose. Cefepime and Flagyl. Gentle IV hydration Normal saline at 100 mils per hour.. Blood cultures are NGTD. Lactic acid normalized. (3) Acute on chronic renal insufficiency Assessment/Plan: Patient appeared to be intravascularly volume depleted despite chronic lower extremity lymphedema. His creatinine on 10/19/20 was 1.7. On 12/03/20 it is 2.2, BUN of 71, eGFR 29. Continue to hold lasix while hydrating with normal saline at 100ml/hr. (4) Hyperlipidemia Assessment/Plan: On atorvastatin 40 mg p.o. every afternoon (5) Hypertension Assessment/Plan: Metoprolol resume today morning. (6) Rheumatoid arthritis Assessment/Plan: Patient has been on Remicade and methotrexate in the past with no success. He is currently indirectly being treated with prednisone which is being used for Bullous pemphigus He is tapering down the prednisone. Prednisone held yesterday to patient's septic state (7) Atrial fibrillation Qualifiers: Atrial fibrillation type: permanent Qualified Code(s): I48.21 - Permanent atrial fibrillation Assessment/Plan: Metoprolol tartrate 25 mg p.o. twice daily resumed this morning because patient's heart rate was in the 150s. He was also given an extra dose of metoprolol tartrate 5 mg IV x1. This improved his heart rate to the 80s. Continue patient's Coumadin. INR today was 2.8. (8) Bullous disorder, unspecified Assessment/Plan: Bullous pemphigoid On prednisone 10mg po daily. Will hold for now. If patient becomes significantly hypotensive and not responding to fluids, Will order hydrocortisone (9) Lymphedema Assessment/Plan: Lasix held currently while hydrating for sepsis Leg dressings were applied by the nurse per the patient's 's directions of how they are managed at home. (10) Peripheral arterial disease Assessment/Plan: Left lower extremity pain: Venous Duplex of left lower extremity done today 12/02/20 was negative for DVT Patient had presented to the ED on 11/23/20 with right foot cold: Arterial Duplex of Right lower extremity done on 11/23/20 showed No flow in the anterior tibial artery reflecting occluision. Flow was demonstrated within the dorsalis pedis artery more distally, suggestive of collateral flow. This was a follow up study to an incomplete study done on 11/20/20. It was determined that there was no acute occlusion. He was to follow up with his doctor for further care. He is on coumadin with an INR of 2.8 today. Pulses were further confirmed at bedside in the ICU after admission. - Current Meds Current Meds: Current Medications Generic Name Dose Route Start Last Admin Trade Name Jamesq PRN Reason Stop Dose Admin Atorvastatin Calcium 40 mg 12/02/20 21:00 12/02/20 21:17 Atorvastatin 40 Mg Tablet PO 40 mg QPM KACY Administration Cefepime HCl 2 gm/ Sodium 100 mls @ 200 mls/hr 12/02/20 13:00 12/02/20 23:04 Chloride IV Infused BID KACY Infusion Metronidazole 500 mg in 100 mls @ 100 mls/hr 12/02/20 18:00 12/03/20 02:40 Flagyl 500 Mg/100 Ml IV Infused Q8H KACY Infusion Morphine Sulfate 15 mg 12/02/20 19:12 12/02/20 21:17 Morphine Ir 15 Mg Tablet PO 15 mg DAILY PRN Administration PAIN Sodium Chloride 10 ml 12/02/20 09:19 12/02/20 10:19 Sodium Chloride Flush 0.9% 10 Ml Syringe IVP 10 ml PRN PRN Administration NEEDED PER PROVIDER ORDERS Sodium Chloride 10 ml 12/02/20 17:00 12/03/20 00:11 Sodium Chloride Flush 0.9% 10 Ml Syringe IVP 10 ml 0100,0900,1700 KACY Administration Sodium Chloride 10 ml 12/03/20 01:00 12/03/20 00:11 Sodium Chloride Flush 0.9% 10 Ml Syringe IVP 20 ml 0100,0900,1700 KACY Administration - Lab Result Fish Bone Diagrams: 12/03/20 04:55 12/03/20 04:55 - Additional Planning My Orders: My Active Orders 12/02/20 09:19 Telemetry- [RC] Q4HR Acetaminophen [Tylenol] 650 mg PO Q4HR PRN Sodium Chloride Flush 0.9% [Normal Saline Flush 0.9%] 10 ml IVP PRN PRN 12/02/20 09:21 Activity Orders [RC] Q2HR IO [RC] IOSHIFT Initiate Bowel Care Protocol [RC] .protocol Initiate Line Care Protocol [RC] QSHIFT Initiate Personal Care Protoco [RC] .protocol Vital Signs [RC] 0800,1600,0000 Condition of Patient [OTHERS] Routine DVT Prophylaxis [OTHERS] Routine 12/02/20 09:26 Vancomycin: Pharmacy To Dose [Vancomycin-Pharmacy To Dose] 1 each MC .ONCE PRN 12/02/20 11:55 HYDROcodone/ACET 7.5/325 [[place] 7.5/325] 1 tab PO Q6HR PRN 12/02/20 11:56 Code Status [OTHERS] Routine 12/02/20 13:00 Cefepime 2 gm Sodium Chloride 0.9% Minibag [Normal Saline 0.9% Minibag] 100 ml IV BID 12/02/20 17:00 Sodium Chloride Flush 0.9% [Normal Saline Flush 0.9%] 10 ml IVP 0100,0900,1700 12/02/20 17:11 Daily Weight [RC] 0600 Initiate Bowel Care Protocol [RC] QSHIFT Initiate ICU Electrolyte Prot. [RC] .protocol Initiate ICU Electrolyte Prot. [RC] QSHIFT Initiate Line Care Protocol [RC] .protocol Initiate Personal Care Protoco [RC] .protocol Vital Signs [RC] Q1HR Sodium Chloride Flush 0.9% [Normal Saline Flush 0.9%] 10 ml IVP PRN PRN Code Status [OTHERS] Routine 12/02/20 18:00 metroNIDAZOLE 500 MG/100 ML [Flagyl 500 mg/100 ml] 500 mg in 100 ml IV Q8H 12/02/20 19:12 Morphine Ir [Ms Ir] 15 mg PO DAILY PRN 12/02/20 21:00 Atorvastatin [Lipitor] 40 mg PO QPM 12/03/20 01:00 Sodium Chloride Flush 0.9% [Normal Saline Flush 0.9%] 10 ml IVP 0100,0900,1700 12/03/20 02:35 Sodium Chloride Flush 0.9% [Normal Saline Flush 0.9%] 20 ml IVP PRN PRN 12/03/20 07:53 Sodium Chloride 0.9% [Normal Saline 0.9%] 1,000 ml IV 100 mls/hr 12/03/20 09:00 Metoprolol Tartrate [Lopressor] 25 mg PO BID 12/03/20 14:00 Warfarin [Coumadin] 2.5 mg PO QDWARFARIN 12/04/20 05:00 ALBUMIN [CHEM] DAILYLAB BMP - BASIC METABOLIC PANEL [CHEM] DAILYLAB CBC - COMP BLD CT W/AUTO DIFF [HEME] DAILYLAB PT WITH INR [COAG] DAILYLAB 12/05/20 05:00 BMP - BASIC METABOLIC PANEL [CHEM] DAILYLAB CBC - COMP BLD CT W/AUTO DIFF [HEME] DAILYLAB PT WITH INR [COAG] DAILYLAB 12/06/20 05:00 BMP - BASIC METABOLIC PANEL [CHEM] DAILYLAB CBC - COMP BLD CT W/AUTO DIFF [HEME] DAILYLAB PT WITH INR [COAG] DAILYLAB 12/07/20 05:00 BMP - BASIC METABOLIC PANEL [CHEM] DAILYLAB CBC - COMP BLD CT W/AUTO DIFF [HEME] DAILYLAB Subjective - Subjective Patient Reports: Other (Resting comfortably in bed at time of visit. There was no progression in the redness on his lower extremities bilaterally. There was significant improvement in his lower extremity pain. Both legs also feel warm to touch. He denied chest pain, dyspnea, abdominal pain, nausea, vomiting, f/c) Objective Vital Signs: Vital Signs - 24 hr 12/02/20 12/02/20 12/02/20 09:19 10:20 14:29 Temperature 36.0 C L 36.8 C 36.7 C Heart Rate 92 Heart Rate [ 51 L Brachial] Heart Rate [ 61 Monitoring electrodes] Respiratory 18 20 18 Rate Blood Pressure 94/56 L Blood Pressure 141/76 H 135/58 H [Left Brachial artery] O2 Saturation 99 98 98 12/02/20 12/02/20 12/02/20 16:02 17:57 18:00 Temperature 36.4 C L 36.9 C Heart Rate Heart Rate [ 59 L Brachial] Heart Rate [ 60 68 Monitoring electrodes] Respiratory 18 19 22 Rate Blood Pressure Blood Pressure 127/54 L 143/77 H 146/61 H [Left Brachial artery] O2 Saturation 99 100 100 12/02/20 12/02/20 12/02/20 18:02 18:04 18:05 Temperature Heart Rate 61 63 60 Heart Rate [ Brachial] Heart Rate [ Monitoring electrodes] Respiratory 23 20 21 Rate Blood Pressure 164/147 H 146/61 H Blood Pressure [Left Brachial artery] O2 Saturation 12/02/20 12/02/20 12/02/20 18:06 18:10 18:15 Temperature Heart Rate 60 60 82 Heart Rate [ Brachial] Heart Rate [ Monitoring electrodes] Respiratory 18 18 21 Rate Blood Pressure Blood Pressure [Left Brachial artery] O2 Saturation 12/02/20 12/02/20 12/02/20 18:20 18:25 18:30 Temperature Heart Rate 60 63 65 Heart Rate [ Brachial] Heart Rate [ Monitoring electrodes] Respiratory 18 16 21 Rate Blood Pressure Blood Pressure [Left Brachial artery] O2 Saturation 12/02/20 12/02/20 12/02/20 18:35 18:40 18:45 Temperature Heart Rate 60 60 76 Heart Rate [ Brachial] Heart Rate [ Monitoring electrodes] Respiratory 17 18 22 Rate Blood Pressure Blood Pressure [Left Brachial artery] O2 Saturation 12/02/20 12/02/20 12/02/20 18:50 18:55 19:00 Temperature 37.2 C Heart Rate 60 60 57 L Heart Rate [ Brachial] Heart Rate [ 76 Monitoring electrodes] Respiratory 17 17 21 Rate Blood Pressure Blood Pressure 143/67 H [Left Brachial artery] O2 Saturation 98 12/02/20 12/02/20 12/02/20 19:01 19:05 19:10 Temperature Heart Rate 60 62 61 Heart Rate [ Brachial] Heart Rate [ Monitoring electrodes] Respiratory 14 15 15 Rate Blood Pressure 143/67 H Blood Pressure [Left Brachial artery] O2 Saturation 12/02/20 12/02/20 12/02/20 19:15 19:20 19:25 Temperature Heart Rate 65 60 69 Heart Rate [ Brachial] Heart Rate [ Monitoring electrodes] Respiratory 17 16 16 Rate Blood Pressure Blood Pressure [Left Brachial artery] O2 Saturation 12/02/20 12/02/20 12/02/20 19:30 19:31 19:35 Temperature Heart Rate 68 67 73 Heart Rate [ Brachial] Heart Rate [ Monitoring electrodes] Respiratory 14 16 15 Rate Blood Pressure 163/68 H Blood Pressure [Left Brachial artery] O2 Saturation 12/02/20 12/02/20 12/02/20 19:40 19:45 19:50 Temperature Heart Rate 61 68 64 Heart Rate [ Brachial] Heart Rate [ Monitoring electrodes] Respiratory 21 18 15 Rate Blood Pressure Blood Pressure [Left Brachial artery] O2 Saturation 12/02/20 12/02/20 12/02/20 19:55 20:00 20:05 Temperature Heart Rate 64 63 66 Heart Rate [ Brachial] Heart Rate [ 63 Monitoring electrodes] Respiratory 16 18 15 Rate Blood Pressure Blood Pressure 162/82 H [Left Brachial artery] O2 Saturation 100 12/02/20 12/02/20 12/02/20 20:10 20:15 20:20 Temperature Heart Rate 66 67 65 Heart Rate [ Brachial] Heart Rate [ Monitoring electrodes] Respiratory 15 15 15 Rate Blood Pressure Blood Pressure [Left Brachial artery] O2 Saturation 12/02/20 12/02/20 12/02/20 20:23 20:24 20:25 Temperature Heart Rate 64 64 63 Heart Rate [ Brachial] Heart Rate [ Monitoring electrodes] Respiratory 16 14 15 Rate Blood Pressure 162/82 H Blood Pressure [Left Brachial artery] O2 Saturation 12/02/20 12/02/20 12/02/20 20:30 20:31 20:35 Temperature Heart Rate 62 70 65 Heart Rate [ Brachial] Heart Rate [ Monitoring electrodes] Respiratory 16 15 16 Rate Blood Pressure 182/107 H Blood Pressure [Left Brachial artery] O2 Saturation 12/02/20 12/02/20 12/02/20 20:40 20:45 20:50 Temperature Heart Rate 65 65 64 Heart Rate [ Brachial] Heart Rate [ Monitoring electrodes] Respiratory 16 17 17 Rate Blood Pressure Blood Pressure [Left Brachial artery] O2 Saturation 12/02/20 12/02/20 12/02/20 20:55 21:00 21:05 Temperature Heart Rate 66 63 69 Heart Rate [ Brachial] Heart Rate [ Monitoring electrodes] Respiratory 14 17 16 Rate Blood Pressure Blood Pressure [Left Brachial artery] O2 Saturation 12/02/20 12/02/20 12/02/20 21:10 21:11 21:15 Temperature Heart Rate 69 75 65 Heart Rate [ Brachial] Heart Rate [ 66 Monitoring electrodes] Respiratory 18 20 17 Rate Blood Pressure 125/63 Blood Pressure 125/63 [Left Brachial artery] O2 Saturation 100 12/02/20 12/02/20 12/02/20 21:20 21:25 21:40 Temperature Heart Rate 70 70 71 Heart Rate [ Brachial] Heart Rate [ Monitoring electrodes] Respiratory 16 16 19 Rate Blood Pressure Blood Pressure [Left Brachial artery] O2 Saturation 12/02/20 12/02/20 12/02/20 21:45 21:50 21:55 Temperature Heart Rate 67 74 78 Heart Rate [ Brachial] Heart Rate [ Monitoring electrodes] Respiratory 17 16 17 Rate Blood Pressure Blood Pressure [Left Brachial artery] O2 Saturation 12/02/20 12/02/20 12/02/20 22:00 22:01 22:05 Temperature Heart Rate 72 83 72 Heart Rate [ Brachial] Heart Rate [ 91 Monitoring electrodes] Respiratory 19 20 17 Rate Blood Pressure 159/67 H Blood Pressure 139/55 H [Left Brachial artery] O2 Saturation 94 12/02/20 12/02/20 12/02/20 22:10 22:15 22:20 Temperature Heart Rate 72 72 78 Heart Rate [ Brachial] Heart Rate [ Monitoring electrodes] Respiratory 17 17 19 Rate Blood Pressure Blood Pressure [Left Brachial artery] O2 Saturation 12/02/20 12/02/20 12/02/20 22:25 22:30 22:35 Temperature Heart Rate 75 78 71 Heart Rate [ Brachial] Heart Rate [ Monitoring electrodes] Respiratory 14 15 16 Rate Blood Pressure Blood Pressure [Left Brachial artery] O2 Saturation 12/02/20 12/02/20 12/02/20 22:40 22:45 22:50 Temperature Heart Rate 76 84 81 Heart Rate [ Brachial] Heart Rate [ Monitoring electrodes] Respiratory 16 16 16 Rate Blood Pressure Blood Pressure [Left Brachial artery] O2 Saturation 12/02/20 12/02/20 12/02/20 22:55 23:00 23:01 Temperature Heart Rate 75 82 84 Heart Rate [ Brachial] Heart Rate [ 81 Monitoring electrodes] Respiratory 17 17 17 Rate Blood Pressure 134/70 H Blood Pressure 134/70 H [Left Brachial artery] O2 Saturation 97 12/02/20 12/02/20 12/02/20 23:05 23:10 23:15 Temperature Heart Rate 77 79 82 Heart Rate [ Brachial] Heart Rate [ Monitoring electrodes] Respiratory 16 16 16 Rate Blood Pressure Blood Pressure [Left Brachial artery] O2 Saturation 12/02/20 12/02/20 12/02/20 23:20 23:25 23:30 Temperature Heart Rate 84 89 84 Heart Rate [ Brachial] Heart Rate [ Monitoring electrodes] Respiratory 16 16 16 Rate Blood Pressure Blood Pressure [Left Brachial artery] O2 Saturation 12/02/20 12/02/20 12/02/20 23:35 23:40 23:45 Temperature Heart Rate 82 79 82 Heart Rate [ Brachial] Heart Rate [ Monitoring electrodes] Respiratory 20 15 15 Rate Blood Pressure Blood Pressure [Left Brachial artery] O2 Saturation 12/02/20 12/02/20 12/03/20 23:50 23:55 00:00 Temperature 36.7 C Heart Rate 81 84 87 Heart Rate [ Brachial] Heart Rate [ 90 Monitoring electrodes] Respiratory 18 15 18 Rate Blood Pressure Blood Pressure 143/71 H [Left Brachial artery] O2 Saturation 100 12/03/20 12/03/20 12/03/20 00:01 00:05 00:10 Temperature Heart Rate 96 90 88 Heart Rate [ Brachial] Heart Rate [ Monitoring electrodes] Respiratory 19 23 16 Rate Blood Pressure 143/71 H Blood Pressure [Left Brachial artery] O2 Saturation 12/03/20 12/03/20 12/03/20 00:15 00:20 00:25 Temperature Heart Rate 96 82 100 Heart Rate [ Brachial] Heart Rate [ Monitoring electrodes] Respiratory 16 16 16 Rate Blood Pressure Blood Pressure [Left Brachial artery] O2 Saturation 12/03/20 12/03/20 12/03/20 00:30 00:35 00:40 Temperature Heart Rate 81 90 85 Heart Rate [ Brachial] Heart Rate [ Monitoring electrodes] Respiratory 18 14 15 Rate Blood Pressure Blood Pressure [Left Brachial artery] O2 Saturation 12/03/20 12/03/20 12/03/20 00:45 00:50 00:55 Temperature Heart Rate 88 91 84 Heart Rate [ Brachial] Heart Rate [ Monitoring electrodes] Respiratory 16 16 14 Rate Blood Pressure Blood Pressure [Left Brachial artery] O2 Saturation 12/03/20 12/03/20 12/03/20 01:00 01:01 01:05 Temperature Heart Rate 98 91 96 Heart Rate [ Brachial] Heart Rate [ 97 Monitoring electrodes] Respiratory 19 15 14 Rate Blood Pressure 141/78 H Blood Pressure 141/78 H [Left Brachial artery] O2 Saturation 98 12/03/20 12/03/20 12/03/20 01:10 01:15 01:20 Temperature Heart Rate 90 98 96 Heart Rate [ Brachial] Heart Rate [ Monitoring electrodes] Respiratory 16 15 16 Rate Blood Pressure Blood Pressure [Left Brachial artery] O2 Saturation 12/03/20 12/03/20 12/03/20 01:25 01:30 01:35 Temperature Heart Rate 90 92 81 Heart Rate [ Brachial] Heart Rate [ Monitoring electrodes] Respiratory 13 19 14 Rate Blood Pressure Blood Pressure [Left Brachial artery] O2 Saturation 12/03/20 12/03/20 12/03/20 01:40 01:45 01:50 Temperature Heart Rate 92 92 88 Heart Rate [ Brachial] Heart Rate [ Monitoring electrodes] Respiratory 15 17 19 Rate Blood Pressure Blood Pressure [Left Brachial artery] O2 Saturation 12/03/20 12/03/20 12/03/20 01:55 02:00 02:01 Temperature Heart Rate 97 81 92 Heart Rate [ Brachial] Heart Rate [ 89 Monitoring electrodes] Respiratory 16 18 16 Rate Blood Pressure 121/66 Blood Pressure 121/66 [Left Brachial artery] O2 Saturation 95 12/03/20 12/03/20 12/03/20 02:05 02:10 02:15 Temperature Heart Rate 84 83 90 Heart Rate [ Brachial] Heart Rate [ Monitoring electrodes] Respiratory 18 17 17 Rate Blood Pressure Blood Pressure [Left Brachial artery] O2 Saturation 12/03/20 12/03/20 12/03/20 02:20 02:25 02:30 Temperature Heart Rate 82 85 80 Heart Rate [ Brachial] Heart Rate [ Monitoring electrodes] Respiratory 17 18 17 Rate Blood Pressure Blood Pressure [Left Brachial artery] O2 Saturation 12/03/20 12/03/20 12/03/20 02:35 02:40 02:45 Temperature Heart Rate 86 88 87 Heart Rate [ Brachial] Heart Rate [ Monitoring electrodes] Respiratory 14 17 17 Rate Blood Pressure Blood Pressure [Left Brachial artery] O2 Saturation 12/03/20 12/03/20 12/03/20 02:50 02:55 03:00 Temperature Heart Rate 87 93 81 Heart Rate [ Brachial] Heart Rate [ 88 Monitoring electrodes] Respiratory 19 17 15 Rate Blood Pressure Blood Pressure 134/59 H [Left Brachial artery] O2 Saturation 95 12/03/20 12/03/20 12/03/20 03:01 03:05 03:10 Temperature Heart Rate 90 95 82 Heart Rate [ Brachial] Heart Rate [ Monitoring electrodes] Respiratory 16 16 16 Rate Blood Pressure 134/59 H Blood Pressure [Left Brachial artery] O2 Saturation 12/03/20 12/03/20 12/03/20 03:15 03:20 03:25 Temperature Heart Rate 90 84 85 Heart Rate [ Brachial] Heart Rate [ Monitoring electrodes] Respiratory 16 17 18 Rate Blood Pressure Blood Pressure [Left Brachial artery] O2 Saturation 12/03/20 12/03/20 12/03/20 03:30 03:35 03:40 Temperature Heart Rate 88 85 86 Heart Rate [ Brachial] Heart Rate [ Monitoring electrodes] Respiratory 18 17 17 Rate Blood Pressure Blood Pressure [Left Brachial artery] O2 Saturation 12/03/20 12/03/20 12/03/20 03:45 03:50 03:55 Temperature Heart Rate 96 86 86 Heart Rate [ Brachial] Heart Rate [ Monitoring electrodes] Respiratory 18 17 17 Rate Blood Pressure Blood Pressure [Left Brachial artery] O2 Saturation 12/03/20 12/03/20 12/03/20 04:00 04:01 04:05 Temperature 37.1 C Heart Rate 85 91 87 Heart Rate [ Brachial] Heart Rate [ 93 Monitoring electrodes] Respiratory 20 17 18 Rate Blood Pressure 130/60 Blood Pressure 130/60 [Left Brachial artery] O2 Saturation 96 12/03/20 12/03/20 12/03/20 04:10 04:15 04:20 Temperature Heart Rate 102 H 93 95 Heart Rate [ Brachial] Heart Rate [ Monitoring electrodes] Respiratory 18 19 18 Rate Blood Pressure Blood Pressure [Left Brachial artery] O2 Saturation 12/03/20 12/03/20 12/03/20 04:25 04:30 04:35 Temperature Heart Rate 94 82 118 H Heart Rate [ Brachial] Heart Rate [ Monitoring electrodes] Respiratory 18 19 18 Rate Blood Pressure Blood Pressure [Left Brachial artery] O2 Saturation 12/03/20 12/03/20 12/03/20 04:40 04:45 04:50 Temperature Heart Rate 122 H 106 H 110 H Heart Rate [ Brachial] Heart Rate [ Monitoring electrodes] Respiratory 17 15 16 Rate Blood Pressure Blood Pressure [Left Brachial artery] O2 Saturation 12/03/20 12/03/20 12/03/20 04:55 05:00 05:01 Temperature Heart Rate 101 H 97 97 Heart Rate [ Brachial] Heart Rate [ 107 H Monitoring electrodes] Respiratory 17 16 15 Rate Blood Pressure 147/77 H Blood Pressure 147/77 H [Left Brachial artery] O2 Saturation 98 12/03/20 12/03/20 12/03/20 05:05 05:10 06:00 Temperature Heart Rate 91 111 H Heart Rate [ Brachial] Heart Rate [ 96 Monitoring electrodes] Respiratory 17 17 16 Rate Blood Pressure Blood Pressure 123/55 L [Left Brachial artery] O2 Saturation 95 12/03/20 07:00 Temperature Heart Rate Heart Rate [ Brachial] Heart Rate [ 101 H Monitoring electrodes] Respiratory 22 Rate Blood Pressure Blood Pressure 143/87 H [Left Brachial artery] O2 Saturation 94 Oxygen O2 Source Room air I&O (Last 24 Hrs): Intake and Output Totals x24h 12/01/20 12/02/20 12/03/20 23:59 23:59 23:59 Intake Total 3660.000 550 Output Total 375 500 Balance 3285.000 50 General: Alert, Oriented x3, Mild distress HEENT: Atraumatic, PERRLA, EOMI Neck: Supple, No JVD Neuro: Alert, Non Focal, Oriented Times 3 Cardiovascular: Regular rate, No murmurs Respiratory: Chest non-tender, No respiratory distress, Breath sounds nml Abdomen: Normal bowel sounds, Soft, No tenderness, No masses Extremities: Other (chronic lymphedema. Ulcers/wounds on right lower extremity. Blisters on posterior of left lower extremity. bilateral erythema) Comments/Notes: chronic lymphedema. Ulcers/wounds on right lower extremity. Blisters on posterior of left lower extremity. bilateral erythema - Results Results: Laboratory Results WBC 18.5 x10^3/uL (4.8-10.8) H 12/03/20 04:55 RBC 3.29 10^6/uL (4.70-6.10) L 12/03/20 04:55 Hgb 10.3 g/dL (14.0-18.0) L 12/03/20 04:55 Hct 30.8 % (42.0-52.0) L 12/03/20 04:55 MCV 93.6 fL (80.0-94.0) 12/03/20 04:55 MCH 31.3 pg (27.0-31.0) H 12/03/20 04:55 MCHC 33.4 g/dL (32.0-36.0) 12/03/20 04:55 RDW 17.3 % (12.0-15.0) H 12/03/20 04:55 Plt Count 102 10^3/uL (130-450) L 12/03/20 04:55 MPV 10.4 fL (7.4-11.4) 12/03/20 04:55 Neut # (Auto) 16.5 10^3/uL (1.5-6.6) H 12/03/20 04:55 Lymph # (Auto) 0.7 10^3/uL (1.5-3.5) L 12/03/20 04:55 Glenn # (Auto) 0.4 10^3/uL (0.0-1.0) 12/03/20 04:55 Eos # (Auto) 0.1 10^3/uL (0.0-0.7) 12/03/20 04:55 Baso # (Auto) 0.1 10^3/uL (0.0-0.1) 12/03/20 04:55 Absolute Nucleated RBC 0.07 x10^3/uL 12/03/20 04:55 Total Counted 100 12/02/20 17:28 Band Neuts % (Manual) 17 % (0-10) H 12/02/20 17:28 Abnorm Lymph % (Manual) 0 % 12/02/20 17:28 Metamyelocytes % 1 % (-0) H 12/02/20 17:28 Myelocytes % 1 % (-0) H 12/02/20 17:28 Nucleated RBC % 0.4 /100WBC 12/03/20 04:55 Neutrophils # (Manual) 17.8 10^3/uL (1.5-6.6) H 12/02/20 17:28 Lymphocytes # (Manual) 0.8 10^3/uL (1.5-3.5) L 12/02/20 17:28 Monocytes # (Manual) 0.8 10^3/uL (0.0-1.0) 12/02/20 17:28 Eosinophils # (Manual) 0.0 10^3/uL (0-0.7) 12/02/20 17:28 Basophils # (Manual) 0.0 10^3/uL (0-0.1) 12/02/20 17:28 Differential Comment MANUAL DIFFERENTIAL 12/02/20 17:28 WBC Morphology 1+ VACUOLATION (NORMAL) 1+ TOXIC GRANULATION (NORMAL) 12/03/20 04:55 WBC Morphology 1+ VACUOLATION (NORMAL) 1+ TOXIC GRANULATION (NORMAL) 12/03/20 04:55 Platelet Estimate DECREASED (<130,000) (NORMAL) 12/03/20 04:55 Platelet Morphology NORMAL APPEARANCE (NORMAL) 12/03/20 04:55 RBC Morph Micro Appear 1+ POLYCHROMASIA (NORMAL) 1+ ANISOCYTOSIS (NORMAL) 12/03/20 04:55 RBC Morph Micro Appear 1+ POLYCHROMASIA (NORMAL) 1+ ANISOCYTOSIS (NORMAL) 12/03/20 04:55 PT 29.6 secs (9.9-12.6) H 12/03/20 04:55 INR 2.8 (0.8-1.2) H 12/03/20 04:55 Sodium 134 mmol/L (135-145) L 12/03/20 04:55 Potassium 4.4 mmol/L (3.5-5.0) 12/03/20 04:55 Chloride 107 mmol/L (101-111) 12/03/20 04:55 Carbon Dioxide 21 mmol/L (21-32) 12/03/20 04:55 Anion Gap 6.0 (6-13) 12/03/20 04:55 BUN 71 mg/dL (6-20) H 12/03/20 04:55 Creatinine 2.2 mg/dL (0.6-1.2) H 12/03/20 04:55 Estimated GFR (MDRD) 29 (>89) L 12/03/20 04:55 Glucose 97 mg/dL (70-100) 12/03/20 04:55 Lactic Acid 1.7 mmol/L (0.5-2.2) 12/03/20 00:00 Calcium 7.9 mg/dL (8.5-10.3) L 12/03/20 04:55 Total Bilirubin 1.1 mg/dL (0.2-1.0) H 12/02/20 08:00 AST 25 IU/L (10-42) 12/02/20 08:00 ALT 27 IU/L (10-60) 12/02/20 08:00 Alkaline Phosphatase 62 IU/L (42-121) 12/02/20 08:00 Total Protein 5.7 g/dL (6.7-8.2) L 12/02/20 08:00 Albumin 2.2 g/dL (3.2-5.5) L 12/03/20 04:55 Globulin 2.6 g/dL (2.1-4.2) 12/02/20 08:00 Albumin/Globulin Ratio 1.2 (1.0-2.2) 12/02/20 08:00 Lipase 29 U/L (22-51) 12/02/20 08:00 Nasal Adenovirus (PCR) NOT DETECTED 12/02/20 09:50 Nasal B. parapertussis DNA (PCR) NOT DETECTED 12/02/20 09:50 Nasal Coronavir 229E PCR NOT DETECTED 12/02/20 09:50 Nasal Coronavir HKU1 PCR NOT DETECTED 12/02/20 09:50 Nasal Coronavir NL63 PCR NOT DETECTED 12/02/20 09:50 Nasal Coronavir OC43 PCR NOT DETECTED 12/02/20 09:50 Nasal Enterovir/Rhinovir PCR NOT DETECTED 12/02/20 09:50 Nasal Influenza B PCR NOT DETECTED 12/02/20 09:50 Nasal Influenza A PCR NOT DETECTED 12/02/20 09:50 Nasal Parainfluen 1 PCR NOT DETECTED 12/02/20 09:50 Nasal Parainfluen 2 PCR NOT DETECTED 12/02/20 09:50 Nasal Parainfluen 3 PCR NOT DETECTED 12/02/20 09:50 Nasal Parainfluen 4 PCR NOT DETECTED 12/02/20 09:50 Nasal RSV (PCR) NOT DETECTED 12/02/20 09:50 Nasal Screen MRSA (PCR) NEGATIVE (NEGATIVE) 12/02/20 17:54 Nasal B.pertussis DNA PCR NOT DETECTED 12/02/20 09:50 Nasal C.pneumoniae (PCR) NOT DETECTED 12/02/20 09:50 Viktor Human Metapneumo PCR NOT DETECTED 12/02/20 09:50 Nasal M.pneumoniae (PCR) NOT DETECTED 12/02/20 09:50 Nasal SARS-CoV-2 (PCR) NOT DETECTED 12/02/20 09:50 Last Dose Date UNKNOWN 12/03/20 04:55 Last Dose Time UNKNOWN 12/03/20 04:55 Random Vancomycin 26.0 ug/mL 12/03/20 04:55 ABX Reporting Has patient been on IV antibiotics over the past 48 hours?: Yes
[2020-12-03] MEDS ORDERED: SODIUM CHLORIDE 0.9% MINIBAG 100 ML IV ONE (08:09)
[2020-12-03] MEDS: METOPROLOL TARTRATE 25 MG TABLET PO SCH ×2 (08:29→21:00)
[2020-12-03] MEDS: CEFEPIME 2 GM in SODIUM CHLORIDE 0.9% MINIBAG 100 ML IV SCH ×2 (08:36→20:56)
[2020-12-03] MEDS ORDERED: METOPROLOL 5 MG/5 ML VIAL IVP STA (08:59)
--- NOTE | 2020-12-03 11:02 | XRAY Report ---
PROCEDURE: Chest for Line Placement INDICATIONS: line placement TECHNIQUE: One view of the chest was acquired. COMPARISON: Chest x-ray 12/02/2020 FINDINGS: Surgical changes and devices: Pacemaker with single lead is unchanged. A right-sided central venous c atheter is present with distal tip projecting over the proximal SVC. Lungs and pleura: No pleural effusions or pneumothorax. Mild increased vascularity is present sugges tive of edema. Mediastinum: Mediastinal contours appear normal. Heart size is enlarged. Bones and chest wall: No suspicious bony lesions. Overlying soft tissues appear unremarkable. IMPRESSION: Support lines as above. The above findings are concordant with preliminary report. Reviewed by: Helena Vásquez MD on 12/03/2020 11:00 AM PDT Approved by: Helena Vásquez MD on 12/03/2020 11:00 AM PDT Station ID: [id number]
--- NOTE | 2020-12-03 14:07 | PHARMACY PROGRESS NOTE ---
- Therapy Status Vancomycin regimen day #: 2 Therapy status: Awaiting steady state Basis for treatment: Empirical Treatment indication: Cellulitis/sepsis Concurrent antibiotics: Cefepime and Flagyl - LAVINIA Risk Risk level for Acute Kidney Injury: High Acute Kidney Injury risk factors: Baseline CrCl <50, Goal trough >15, Admission to ICU, Sepsis - Monitoring and Recommendation Clinical response to treatment: I&O Previous 24 hours 12/01/20 12/02/20 12/03/20 23:59 23:59 23:59 Intake Total 3660.000 2230 Output Total 375 620 Balance 3285.000 1610 Lab Results 12/03/20 12/03/20 12/02/20 04:55 00:00 17:28 BUN 71 H 72 H 79 H Creatinine 2.2 H 2.4 H 2.7 H Estimated GFR (MDRD) 29 L 26 L 23 L 12/02/20 08:00 BUN 84 H* Creatinine 2.8 H Estimated GFR (MDRD) 22 L Vancomycin Monitoring 12/03/20 04:55 Random Vancomycin 26.0 Cultures 12/02/20 09:19 Blood Blood Culture - Preliminary NO GROWTH AFTER 1 DAY 12/02/20 08:00 Blood Blood Culture - Preliminary NO GROWTH AFTER 1 DAY Monitoring plan: Daily serum creatinine, Suggest ongoing fluid replacement Next trough due (date/time): Random level with morning labs Areas for additional monitoring: IV to PO when appropriate, Therapy de- escalation based on culture results Pharmacy recommendation: Hold dose (Additional dose not indicated at this time due to random level of 26 mcg/mL. Will recheck random level tomorrow morning and re-dose if < 15 mcg/mL.)
[2020-12-03] MEDS: WARFARIN 2.5 MG TABLET PO SCH (15:54)
[2020-12-03] MEDS: MORPHINE IR 15 MG TABLET PO PRN (18:11)
[2020-12-03] MEDS: ATORVASTATIN 40 MG TABLET PO SCH (20:59)
[2020-12-04] MEDS: metroNIDAZOLE 500 MG/100 ML 500 MG/100 ML BAG IV SCH (01:30)
[2020-12-04] MEDS: SODIUM CHLORIDE FLUSH 0.9% 10 ML SYRINGE IVP SCH ×5 (01:31→17:22)
[2020-12-04] MEDS: SODIUM CHLORIDE 0.9% 1,000 ML IV SCH (04:12)
[2020-12-04 05:16] LABS: BASOPHILS % (AUTO) 0.2 %; EOSINOPHILS % (AUTO) 0.7 %; HCT - HEMATOCRIT 32.6 % (42.0-52.0); HGB - HEMOGLOBIN 10.8 g/dL (14.0-18.0); LYMPHOCYTES % (AUTO) 5.1 %; MEAN CORPUSCULAR HEMOGLOBIN 31.1 pg (27.0-31.0); MEAN CORPUSCULAR HGB CONC 33.1 g/dL (32.0-36.0); MEAN CORPUSCULAR VOLUME 93.9 fL (80.0-94.0); MEAN PLATELET VOLUME 11.3 fL (7.4-11.4); MONOCYTES % (AUTO) 3.1 %; NEUTROPHILS % (AUTO) 80.6 %; PLT - PLATELET COUNT 118 10^3/uL (130-450); RED BLOOD COUNT 3.47 10^6/uL (4.70-6.10); RED CELL DISTRIBUTION WIDTH 17.5 % (12.0-15.0); WHITE BLOOD COUNT 17.3 x10^3/uL (4.8-10.8)
[2020-12-04 05:18] LABS: ABNORMAL LYMPHS % (MANUAL) 0 %
[2020-12-04 05:21] LABS: INR 2.2 (0.8-1.2); PT - PROTHROMBIN TIME 23.3 secs (9.9-12.6)
[2020-12-04 05:28] LABS: ALBUMIN 2.1 g/dL (3.2-5.5); CALCIUM 8.1 mg/dL (8.5-10.3); CREATININE 1.8 mg/dL (0.6-1.2); POTASSIUM 4.1 mmol/L (3.5-5.0)
[2020-12-04 05:42] LABS: BAND NEUTROPHILS % (MANUAL) 6 %; LYMPHOCYTES # (MANUAL) 0.9 10^3/uL (1.5-3.5); LYMPHOCYTES % (MANUAL) 5 %; MONOCYTES # (MANUAL) 0.2 10^3/uL (0.0-1.0); NEUTROPHILS # (MANUAL) 16.3 10^3/uL (1.5-6.6)
[2020-12-04 05:43] LABS: DIFFERENTIAL COMMENT MANUAL DIFFERENTIAL; PLATELET ESTIMATE, MANUAL NORMAL (130-450,000) (NORMAL); PLATELET MORPHOLOGY NORMAL APPEARANCE (NORMAL); RBC MORPHOLOGY (MULTIPLE) 1+ OVALOCYTES (NORMAL); WBC MORPHOLOGY (MULTIPLE) NORMAL APPEARANCE (NORMAL)
--- NOTE | 2020-12-04 07:39 | PROVIDER PROGRESS NOTE ---
Subjective - Prog Note Date Prog Note Date: 12/04/20 - Subjective Subjective: He continues to feel better each day. Denies any chest pain, dyspnea. Has an occasional nonproductive cough. Has had a little bit of loose stools as well since hospitalization. No abdominal pain. He has no leg pain at rest but with movement and dressing changes, he does complain of pain. Current Medications - Current Medications Current Medications: Active Medications Acetaminophen (Acetaminophen 325 Mg Tablet) 650 mg PO Q4HR PRN PRN Reason: Pain 1 to 4 Hydrocodone Bitart/Acetaminophen (Hydrocod/Acetam 7.5 Mg/325 Mg Tablet) 1 tab PO Q6HR PRN PRN Reason: PAIN Atorvastatin Calcium (Atorvastatin 40 Mg Tablet) 40 mg PO QPM [facility] Last Admin: 12/03/20 20:59 Dose: 40 mg Documented by: Cefepime HCl 2 gm/ Sodium (Chloride) 100 mls @ 200 mls/hr IV BID [facility] Last Infusion: 12/03/20 21:30 Dose: Infused Documented by: Metronidazole (Flagyl 500 Mg/100 Ml) 500 mg in 100 mls @ 100 mls/hr IV Q8H [facility] Last Infusion: 12/04/20 02:30 Dose: Infused Documented by: Sodium Chloride (Normal Saline 0.9%) 1,000 mls @ 100 mls/hr IV .Q10H [facility] Last Admin: 12/04/20 04:12 Dose: Not Given Documented by: Metoprolol Tartrate (Metoprolol Tartrate 25 Mg Tablet) 25 mg PO BID [facility] Last Admin: 12/03/20 21:00 Dose: 25 mg Documented by: Morphine Sulfate (Morphine Ir 15 Mg Tablet) 15 mg PO DAILY PRN PRN Reason: PAIN Last Admin: 12/03/20 18:11 Dose: 15 mg Documented by: Sodium Chloride (Sodium Chloride Flush 0.9% 10 Ml Syringe) 10 ml IVP PRN PRN PRN Reason: NEEDED PER PROVIDER ORDERS Last Admin: 12/02/20 10:19 Dose: 10 ml Documented by: Sodium Chloride (Sodium Chloride Flush 0.9% 10 Ml Syringe) 10 ml IVP 0100,0900,1700 [facility] Last Admin: 12/04/20 01:31 Dose: 10 ml Documented by: Sodium Chloride (Sodium Chloride Flush 0.9% 10 Ml Syringe) 10 ml IVP 0100,0900,1700 [facility] Last Admin: 12/04/20 07:36 Dose: Not Given Documented by: Sodium Chloride (Sodium Chloride Flush 0.9% 10 Ml Syringe) 10 ml IVP PRN PRN PRN Reason: NEEDED PER PROVIDER ORDERS Sodium Chloride (Sodium Chloride Flush 0.9% 10 Ml Syringe) 20 ml IVP PRN PRN PRN Reason: After Blood Draw Last Admin: 12/04/20 04:46 Dose: 20 ml Documented by: Vancomycin HCl (Vancomycin: Pharmacy To Dose) 1 each .ONCE PRN PRN Reason: PER PHARMACY Warfarin Sodium (Warfarin 2.5 Mg Tablet) 2.5 mg PO QDWARFARIN [facility] Last Admin: 12/03/20 15:54 Dose: 2.5 mg Documented by: Cyanocobalamin (Vitamin B-12) [Vitamin B-12] 250 mcg PO DAILY 04/26/14 [place]-3 Fatty Acids [Fish Oil] 1,000 mg PO DAILY 04/26/14 Atorvastatin Calcium 40 mg PO QPM 10/13/16 Warfarin Sodium [Jantoven] 2.5 mg PO DAILY 10/13/16 Furosemide 40 mg PO DAILY 03/03/20 Potassium Chloride 20 meq PO DAILY 03/07/20 predniSONE [Prednisone] 1 tab PO DAILY 03/07/20 Metoprolol Tartrate [Lopressor] 25 mg PO BID 12/02/20 Morphine ER [Morphine Sulfate ER] 15 mg PO BID 12/03/20 Objective - Vital Signs/Intake & Output Reviewed Vital Signs: Yes Vital Signs: Vital Signs Temp Pulse Resp BP Pulse Ox 12/04/20 07:00 104 H 16 122/88 H 100 12/04/20 06:00 120 H 15 123/89 H 99 12/04/20 05:00 115 H 13 122/92 H 98 12/04/20 04:36 36.9 C 115 H 13 99 12/04/20 04:00 103 H 14 129/83 H 99 Intake & Output: Intake & Output 12/01/20 12/02/20 12/03/20 12/04/20 23:59 23:59 23:59 23:59 Intake Total 3660.000 3670 600 Output Total 375 5555 775 Balance 3285.000 4660 -263 - Objective General Appearance: positive: No acute distress, Alert Eyes Bilateral: positive: Conjunctivae nml ENT: positive: ENT inspection nml Neck: positive: Nml inspection Respiratory: positive: No respiratory distress. negative: Wheezes, Rales Cardiovascular: positive: Irregularly irregular, Tachycardia. negative: Systolic murmur Abdomen: positive: Non-tender, No distention. negative: Tenderness, Guarding, Rebound Skin: positive: Warm, Dry, Other (He has moderate erythema over the BLE's over the anterior edwards. There is also a fluid-filled blister over the posterior aspect of the LLE just above the ankle draining serous fluid. There are multiple small wounds over the lateral aspect of RLE. Serous drainage noted.) Extremities: positive: Pedal edema (He has +2 to +3 pitting edema in the bilateral lower extremities.) Neurologic/Psychiatric: negative: Disoriented to person, Disoriented to place - Lab Results Fish Bones: 12/04/20 04:40 12/04/20 04:40 Other Labs: Lab Results x24hrs 12/04/20 12/04/20 12/04/20 Range/Units 04:40 04:40 04:40 WBC (4.8-10.8) x10^3/uL RBC (4.70-6.10) 10^6/uL Hgb (14.0-18.0) g/dL Hct (42.0-52.0) % MCV (80.0-94.0) fL MCH (27.0-31.0) pg MCHC (32.0-36.0) g/dL RDW (12.0-15.0) % Plt Count (130-450) 10^3/uL MPV (7.4-11.4) fL Neut # (Auto) Lymph # (Auto) [place] # (Auto) Eos # (Auto) Baso # (Auto) Absolute Nucleated RBC Total Counted Band Neuts % (Manual) (0 - 10) % Abnorm Lymph % (Manual) % Nucleated RBC % Neutrophils # (Manual) (1.5-6.6) 10^3/uL Lymphocytes # (Manual) (1.5-3.5) 10^3/uL Monocytes # (Manual) (0.0-1.0) 10^3/uL Eosinophils # (Manual) (0-0.7) 10^3/uL Basophils # (Manual) (0-0.1) 10^3/uL Differential Comment WBC Morphology (NORMAL) Platelet Estimate (NORMAL) Platelet Morphology (NORMAL) RBC Morph Micro Appear (NORMAL) PT 23.3 H (9.9-12.6) secs INR 2.2 H (0.8-1.2) Sodium 138 (135-145) mmol/L Potassium 4.1 (3.5-5.0) mmol/L Chloride 111 (101-111) mmol/L Carbon Dioxide 19 L (21-32) mmol/L Anion Gap 8.0 (6-13) BUN 55 H (6-20) mg/dL Creatinine 1.8 H (0.6-1.2) mg/dL Estimated GFR (MDRD) 36 L (>89) Glucose 93 (70-100) mg/dL Calcium 8.1 L (8.5-10.3) mg/dL Albumin 2.1 L (3.2-5.5) g/dL Last Dose Date UNKNOWN Last Dose Time UNKNOWN Random Vancomycin 18.0 ug/mL 12/04/20 Range/Units 04:40 WBC 17.3 H (4.8-10.8) x10^3/uL RBC 3.47 L (4.70-6.10) 10^6/uL Hgb 10.8 L (14.0-18.0) g/dL Hct 32.6 L (42.0-52.0) % MCV 93.9 (80.0-94.0) fL MCH 31.1 H (27.0-31.0) pg MCHC 33.1 (32.0-36.0) g/dL RDW 17.5 H (12.0-15.0) % Plt Count 118 L (130-450) 10^3/uL MPV 11.3 (7.4-11.4) fL Neut # (Auto) Not Reportable Lymph # (Auto) Not Reportable [place] # (Auto) Not Reportable Eos # (Auto) Not Reportable Baso # (Auto) Not Reportable Absolute Nucleated RBC Not Reportable Total Counted 100 Band Neuts % (Manual) 6 (0 - 10) % Abnorm Lymph % (Manual) 0 % Nucleated RBC % Not Reportable Neutrophils # (Manual) 16.3 H (1.5-6.6) 10^3/uL Lymphocytes # (Manual) 0.9 L (1.5-3.5) 10^3/uL Monocytes # (Manual) 0.2 (0.0-1.0) 10^3/uL Eosinophils # (Manual) 0.0 (0-0.7) 10^3/uL Basophils # (Manual) 0.0 (0-0.1) 10^3/uL Differential Comment MANUAL DIFFERENTIAL WBC Morphology NORMAL APPEARANCE (NORMAL) Platelet Estimate NORMAL (130-450,000) (NORMAL) Platelet Morphology NORMAL APPEARANCE (NORMAL) RBC Morph Micro Appear 1+ OVALOCYTES (NORMAL) PT (9.9-12.6) secs INR (0.8-1.2) Sodium (135-145) mmol/L Potassium (3.5-5.0) mmol/L Chloride (101-111) mmol/L Carbon Dioxide (21-32) mmol/L Anion Gap (6-13) BUN (6-20) mg/dL Creatinine (0.6-1.2) mg/dL Estimated GFR (MDRD) (>89) Glucose (70-100) mg/dL Calcium (8.5-10.3) mg/dL Albumin (3.2-5.5) g/dL Last Dose Date Last Dose Time Random Vancomycin ug/mL Sepsis Event Note (H) - Evaluation Current Stage of Sepsis: Resolved Possible source of Sepsis: positive: Skin/soft tissue - Sepsis Criteria Sepsis Criteria: WBC count greater than 12,000 or less than 4000, Renal: urine output less than 0.5ml/kg/hr for 2 hours or creatinine gr, Metabolic: lactate > 2 mmol/L Assessment/Plan - Problem List (1) Sepsis Impression: Improving from a sepsis standpoint. He has been afebrile. His lactic acid is normal and his white count is improving although the left shift is still present and it remains elevated. This is believed to be secondary to cellulitis of the left lower extremity. Blood cultures have been negative to date. We will continue vancomycin but discontinue the cefepime and Flagyl IV. Continue to trend his white count and follow-up blood cultures. Transfer out of ICU today. (2) Cellulitis of left lower extremity Impression: This is believed to be the source of his sepsis. He does have chronic lymphedema which does increase his risk of cellulitis. There may potentially be a component of chronic venous stasis dermatitis. His white count is improving and his lactic acid is normal. We have discontinued cefepime and Flagyl IV. We will keep him on vancomycin as from initial pictures, this appeared to be purulent cellulitis. We will check a CRP and trend this. We will keep him on IV antibiotics for another 24 to 48 hours until we see further improvement from an erythema standpoint before transitioning to oral antibiotics. (3) Acute on chronic renal insufficiency Impression: His acute kidney injury was likely prerenal and due to sepsis. His baseline creatinine is approximately 1.7-2. His creatinine was 2.8 on admission and today it has improved to 1.8. We will discontinue IV fluids. His renal function is stable we will look to resume Lasix in the morning as he is quite edematous. (4) Atrial fibrillation Impression: He was tachycardic this morning with heart rates in the 140s. This did improve to the 100s after receiving his morning dose of metoprolol. We will increase this dose to 50 mg twice daily from 25 mg twice daily. Continue with Coumadin. Qualifiers: Atrial fibrillation type: permanent Qualified Code(s): I48.21 - Permanent atrial fibrillation (5) Hypertension Impression: He has remained normotensive during this hospitalization. We will increase his metoprolol to 50 mg twice daily given the atrial fibrillation. 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 He does have a new fluid-filled blister over the posterior aspect of the left lower extremity. He has been on a prednisone taper and we will resume his prednisone at 15 mg daily. (7) Rheumatoid arthritis Impression: He has failed prior therapy with Remicade and methotrexate. He is on prednisone for the bullous pemphigoid which we will continue. (8) Peripheral arterial disease Impression: Lower extremity duplex earlier this month was concerning for an occlusion of the right anterior tibial artery. There was flow within the dorsalis pedis suggestive of collateral flow. The small wounds over the lateral aspect of his right lower extremity arre likely due to arterial insufficiency. We will continue with medical management including statin. He is on Coumadin for the atrial fibrillation. He will follow up with his primary care provider and consider vascular surgery consult. (9) Lymphedema Impression: Duplex did not reveal any obvious DVT. We will look to his resume his home oral Lasix tomorrow if his renal function remains stable. Continue with leg elevations. No compression stockings due to the leg wounds.
[2020-12-04] MEDS: METOPROLOL TARTRATE 25 MG TABLET PO SCH (08:07)
[2020-12-04] MEDS: CEFEPIME 2 GM in SODIUM CHLORIDE 0.9% MINIBAG 100 ML IV SCH (08:09)
[2020-12-04] MEDS ORDERED: CARBOXYMETHYLCELLULOSE OPHTH DROPS EACHEYE PRN (08:57)
[2020-12-04] MEDS: MORPHINE IR 15 MG TABLET PO PRN (09:01)
[2020-12-04] MEDS ORDERED: VANCOMYCIN INJ 1 GM in SODIUM CHLORIDE 0.9% 250 ML IV SCH (13:00)
[2020-12-04] MEDS: WARFARIN 2.5 MG TABLET PO SCH (13:54)
[2020-12-04] MEDS ORDERED: METOPROLOL TARTRATE 50 MG TABLET PO STA (14:09)
[2020-12-04] MEDS: SACCHAROMYCES BOULARDII 250 MG CAPSULE PO SCH (17:22)
[2020-12-04] MEDS: METOPROLOL TARTRATE 50 MG TABLET PO SCH (20:24)
[2020-12-04] MEDS: ATORVASTATIN 40 MG TABLET PO SCH (20:24)
[2020-12-05] MEDS: SODIUM CHLORIDE FLUSH 0.9% 10 ML SYRINGE IVP SCH ×4 (01:40→23:55)
[2020-12-05] MEDS: METOPROLOL TARTRATE 50 MG TABLET PO SCH ×2 (05:22→20:56)
[2020-12-05 05:27] LABS: BASOPHILS # (AUTO) 0.1 10^3/uL (0.0-0.1); BASOPHILS % (AUTO) 0.4 %; EOSINOPHILS # (AUTO) 0.1 10^3/uL (0.0-0.7); EOSINOPHILS % (AUTO) 0.8 %; HCT - HEMATOCRIT 36.1 % (42.0-52.0); HGB - HEMOGLOBIN 11.7 g/dL (14.0-18.0); LYMPHOCYTES # (AUTO) 0.8 10^3/uL (1.5-3.5); LYMPHOCYTES % (AUTO) 5.7 %; MEAN CORPUSCULAR HGB CONC 32.4 g/dL (32.0-36.0); MEAN CORPUSCULAR VOLUME 95.8 fL (80.0-94.0); MONOCYTES # (AUTO) 0.6 10^3/uL (0.0-1.0); MONOCYTES % (AUTO) 4.4 %; NEUTROPHILS # (AUTO) 11.8 10^3/uL (1.5-6.6); NEUTROPHILS % (AUTO) 87.4 %; NRBC ABSOLUTE COUNT (AUTO) 0.02 x10^3/uL; NUCLEATED RED BLOOD CELLS AUTO 0.1 /100WBC; PLT - PLATELET COUNT 126 10^3/uL (130-450); RED BLOOD COUNT 3.77 10^6/uL (4.70-6.10); RED CELL DISTRIBUTION WIDTH 17.5 % (12.0-15.0); WHITE BLOOD COUNT 13.5 x10^3/uL (4.8-10.8)
[2020-12-05 05:31] LABS: INR 2.2 (0.8-1.2); PT - PROTHROMBIN TIME 23.4 secs (9.9-12.6)
[2020-12-05 05:36] LABS: VANCOMYCIN,RANDOM 23.8 ug/mL
[2020-12-05 05:45] LABS: CALCIUM 8.4 mg/dL (8.5-10.3); CREATININE 1.6 mg/dL (0.6-1.2); CRP - C-REACTIVE PROTEIN 15.8 mg/dL (0-1.0)
--- NOTE | 2020-12-05 07:31 | PROVIDER PROGRESS NOTE ---
Subjective - Prog Note Date Prog Note Date: 12/05/20 - Subjective Subjective: He continues to report feeling better. He feels improved overall. His legs are finisher card tender to palpation especially in the left lower extremity. Denies chest pain, dyspnea. Current Medications - Current Medications Current Medications: Active Medications Acetaminophen (Acetaminophen 325 Mg Tablet) 650 mg PO Q4HR PRN PRN Reason: Pain 1 to 4 Hydrocodone Bitart/Acetaminophen (Hydrocod/Acetam 7.5 Mg/325 Mg Tablet) 1 tab PO Q6HR PRN PRN Reason: PAIN Atorvastatin Calcium (Atorvastatin 40 Mg Tablet) 40 mg PO QPM [facility] Last Admin: 12/04/20 20:24 Dose: 40 mg Documented by: Carboxymethylcellulose (Carboxymethylcellulose Ophth Drops) 1 drops EACHEYE PRN PRN PRN Reason: Dry Eye Last Admin: 12/04/20 13:29 Dose: 1 drops Documented by: Metoprolol Tartrate (Metoprolol Tartrate 50 Mg Tablet) 50 mg PO BID [facility] Last Admin: 12/05/20 05:22 Dose: 50 mg Documented by: Morphine Sulfate (Morphine Ir 15 Mg Tablet) 15 mg PO DAILY PRN PRN Reason: PAIN Last Admin: 12/04/20 09:01 Dose: 15 mg Documented by: Prednisone (Prednisone 10 Mg Tablet) 15 mg PO DAILYWM [facility] Saccharomyces Boulardii (Saccharomyces Boulardii 250 Mg Capsule) 250 mg PO BIDWM [facility] Last Admin: 12/04/20 17:22 Dose: 250 mg Documented by: Sodium Chloride (Sodium Chloride Flush 0.9% 10 Ml Syringe) 10 ml IVP PRN PRN PRN Reason: NEEDED PER PROVIDER ORDERS Last Admin: 12/02/20 10:19 Dose: 10 ml Documented by: Sodium Chloride (Sodium Chloride Flush 0.9% 10 Ml Syringe) 10 ml IVP 0100,0900,1700 [facility] Last Admin: 12/05/20 01:42 Dose: 10 ml Documented by: Sodium Chloride (Sodium Chloride Flush 0.9% 10 Ml Syringe) 20 ml IVP PRN PRN PRN Reason: After Blood Draw Last Admin: 12/04/20 04:46 Dose: 20 ml Documented by: Vancomycin HCl (Vancomycin: Pharmacy To Dose) 1 each [facility] .ONCE PRN PRN Reason: PER PHARMACY Warfarin Sodium (Warfarin 2.5 Mg Tablet) 2.5 mg PO QDWARFARIN [facility] Last Admin: 12/04/20 13:54 Dose: 2.5 mg Documented by: Cyanocobalamin (Vitamin B-12) [Vitamin B-12] 250 mcg PO DAILY 04/26/14 [place]-3 Fatty Acids [Fish Oil] 1,000 mg PO DAILY 04/26/14 Atorvastatin Calcium 40 mg PO QPM 10/13/16 Warfarin Sodium [Jantoven] 2.5 mg PO DAILY 10/13/16 Furosemide 40 mg PO DAILY 03/03/20 Potassium Chloride 20 meq PO DAILY 03/07/20 predniSONE [Prednisone] 1 tab PO DAILY 03/07/20 Metoprolol Tartrate [Lopressor] 25 mg PO BID 12/02/20 Morphine ER [Morphine Sulfate ER] 15 mg PO BID 12/03/20 Objective - Vital Signs/Intake & Output Reviewed Vital Signs: Yes Vital Signs: Vital Signs x48h Temp Pulse Pulse Resp BP BP BP 12/05/20 06:20 36.0 C L 12/05/20 05:22 152/98 H 12/05/20 04:58 111 H 20 152/98 H 12/05/20 01:03 37.1 C 65 18 125/76 12/05/20 00:23 96 17 153/87 H 12/05/20 00:12 37.0 C 99 152/100 H Pulse Ox 12/05/20 06:20 12/05/20 05:22 12/05/20 04:58 93 12/05/20 01:03 99 12/05/20 00:23 97 12/05/20 00:12 19 L Intake & Output: Intake & Output 12/02/20 12/03/20 12/04/20 12/05/20 23:59 23:59 23:59 23:59 Intake Total 3660.000 3670 2510 200 Output Total 375 1145 1550 350 Balance 3285.000 2525 960 -150 - Objective General Appearance: positive: No acute distress, Alert Eyes Bilateral: positive: Normal inspection, Conjunctivae nml ENT: positive: ENT inspection nml Neck: positive: Nml inspection Respiratory: positive: No respiratory distress. negative: Wheezes, Rales Cardiovascular: positive: Irregularly irregular. negative: Tachycardia, Systolic murmur Abdomen: positive: Non-tender, No distention. negative: Tenderness, Guarding, Rebound Skin: positive: Warm, Dry, Other (He has bilateral lower extremity erythema over the shins. This is more prominent in left lower extremity. This does appear improved compared to yesterday as the extent of the erythema is decreased. It is still warm and tender to palpation) Extremities: positive: Pedal edema (+2 to +3 pitting edema in the bilateral lower extremities.) - Lab Results Fish Bones: 12/05/20 05:00 12/05/20 05:00 Other Labs: Lab Results x24hrs 12/05/20 12/05/20 12/05/20 Range/Units 05:00 05:00 05:00 WBC (4.8-10.8) x10^3/uL RBC (4.70-6.10) 10^6/uL Hgb (14.0-18.0) g/dL Hct (42.0-52.0) % MCV (80.0-94.0) fL MCH (27.0-31.0) pg MCHC (32.0-36.0) g/dL RDW (12.0-15.0) % Plt Count (130-450) 10^3/uL MPV (7.4-11.4) fL Neut # (Auto) (1.5-6.6) 10^3/uL Lymph # (Auto) (1.5-3.5) 10^3/uL [place] # (Auto) (0.0-1.0) 10^3/uL Eos # (Auto) (0.0-0.7) 10^3/uL Baso # (Auto) (0.0-0.1) 10^3/uL Absolute Nucleated RBC x10^3/uL Nucleated RBC % /100WBC PT 23.4 H (9.9-12.6) secs INR 2.2 H (0.8-1.2) Sodium 140 (135-145) mmol/L Potassium 4.0 (3.5-5.0) mmol/L Chloride 111 (101-111) mmol/L Carbon Dioxide 21 (21-32) mmol/L Anion Gap 8.0 (6-13) BUN 44 H (6-20) mg/dL Creatinine 1.6 H (0.6-1.2) mg/dL Estimated GFR (MDRD) 41 L (>89) Glucose 101 H (70-100) mg/dL Calcium 8.4 L (8.5-10.3) mg/dL C-Reactive Protein 15.8 H (0-1.0) mg/dL Last Dose Date 12/04/20 Last Dose Time 1300 Random Vancomycin 23.8 ug/mL 12/05/20 Range/Units 05:00 WBC 13.5 H (4.8-10.8) x10^3/uL RBC 3.77 L (4.70-6.10) 10^6/uL Hgb 11.7 L (14.0-18.0) g/dL Hct 36.1 L (42.0-52.0) % MCV 95.8 H (80.0-94.0) fL MCH 31.0 (27.0-31.0) pg MCHC 32.4 (32.0-36.0) g/dL RDW 17.5 H (12.0-15.0) % Plt Count 126 L (130-450) 10^3/uL MPV 11.0 (7.4-11.4) fL Neut # (Auto) 11.8 H (1.5-6.6) 10^3/uL Lymph # (Auto) 0.8 L (1.5-3.5) 10^3/uL [place] # (Auto) 0.6 (0.0-1.0) 10^3/uL Eos # (Auto) 0.1 (0.0-0.7) 10^3/uL Baso # (Auto) 0.1 (0.0-0.1) 10^3/uL Absolute Nucleated RBC 0.02 x10^3/uL Nucleated RBC % 0.1 /100WBC PT (9.9-12.6) secs INR (0.8-1.2) Sodium (135-145) mmol/L Potassium (3.5-5.0) mmol/L Chloride (101-111) mmol/L Carbon Dioxide (21-32) mmol/L Anion Gap (6-13) BUN (6-20) mg/dL Creatinine (0.6-1.2) mg/dL Estimated GFR (MDRD) (>89) Glucose (70-100) mg/dL Calcium (8.5-10.3) mg/dL C-Reactive Protein (0-1.0) mg/dL Last Dose Date Last Dose Time Random Vancomycin ug/mL ABX Reporting Has patient been on IV antibiotics over the past 48 hours?: Yes Sepsis Event Note (H) - Evaluation Current Stage of Sepsis: Resolved Possible source of Sepsis: positive: Skin/soft tissue - Sepsis Criteria Sepsis Criteria: WBC count greater than 12,000 or less than 4000, Renal: urine output less than 0.5ml/kg/hr for 2 hours or creatinine gr, Metabolic: lactate > 2 mmol/L Assessment/Plan - Problem List (1) Sepsis Impression: He continues to improve from a sepsis standpoint. He remains afebrile and his white count continues to decrease on a daily basis. His lactic acid has normalized. Blood cultures have been negative to date. We will keep him on vancomycin IV alone for the cellulitis given this appears to be purulent cellulitis on admission. (2) Cellulitis of left lower extremity Impression: This is the cause of his sepsis. He continues to show improvement on a daily basis although his lower extremity still remains quite erythematous. His white count is improving. His CRP is elevated at 15. We will keep him on vancomycin IV for at least another 24 hours as I would like to see his erythema continue to improve and his white count normalizes. I would also like to see his CRP continue to trend in the right direction. We will look to transition him to oral antibiotics either tomorrow or the day after. (3) Acute on chronic renal insufficiency Impression: His acute kidney injury was likely prerenal in injury and related to the sepsis. His creatinine has continued to improve on a daily basis and is down to 1.6 today. We have discontinued his IV fluids yesterday. Given his lower extremity edema, we will resume his home oral Lasix. We will continue to monitor his renal function closely. (4) Atrial fibrillation Impression: His heart rate is better controlled after increasing his metoprolol to 50 mg twice daily. If he becomes tachycardic again then we will increase this further to 100 mg twice daily. We will continue to monitor on telemetry. Continue Cou madin. Qualifiers: Atrial fibrillation type: permanent Qualified Code(s): I48.21 - Permanent atrial fibrillation (5) Hypertension Impression: He has been hypertensive overnight with systolic in the 150s. We will continue his current dose of metoprolol for the time being but if he remains hypertensive and tachycardic we can increase this dose or we can also potentially add a second antihypertensive. (6) Bullous disorder, unspecified Impression: He is on prednisone for his bullous pemphigoid. He did have a new blister yesterday. We have resumed his home prednisone dose of 15 mg daily. (7) Rheumatoid arthritis Impression: We will continue his home prednisone for the bullous pemphigoid. He was previously on Remicade and methotrexate but unfortunately these were not successful treatments for him. Avoid NSAIDs due to his chronic kidney disease. (8) Peripheral arterial disease Impression: He had an arterial duplex earlier this month which was concerning for occlusion of the right anterior tibial artery. There was evidence of collateral flow. He does have a few small wounds over the lateral aspect of his right lower extremity which I suspect is related to his arterial insufficiency. We will continue with medical management. Vascular surgery referral can be considered on outpatient basis. (9) Lymphedema Impression: Duplex on admission did not reveal any obvious DVT. Given his renal function appears to have stabilized, we will resume his home oral Lasix. We will hold off on compression stockings due to his leg wounds.
[2020-12-05] MEDS: SACCHAROMYCES BOULARDII 250 MG CAPSULE PO SCH ×2 (08:15→17:13)
[2020-12-05] MEDS: FUROSEMIDE 40 MG TABLET PO SCH (08:16)
[2020-12-05] MEDS: predniSONE 10 MG TABLET PO SCH (08:16)
[2020-12-05] MEDS: MORPHINE IR 15 MG TABLET PO PRN (10:10)
--- NOTE | 2020-12-05 12:28 | PHARMACY PROGRESS NOTE ---
- Therapy Status Vancomycin regimen day #: 4 (Patient has received 2 doses of vancomycin so far. He was being dosed based off levels due to acute kidney injury.) Therapy status: Awaiting steady state Basis for treatment: Empirical Treatment indication: Cellulitis, sepsis - [place] Risk Risk level for Acute Kidney Injury: High Acute Kidney Injury risk factors: Baseline CrCl <50, Goal trough >15, Admission to ICU, Sepsis - Monitoring and Recommendation Clinical response to treatment: I&O Previous 24 hours 12/03/20 12/04/20 12/05/20 23:59 23:59 23:59 Intake Total 3670 2510 440 Output Total 1145 1550 350 Balance 2525 960 90 Lab Results 12/05/20 12/04/20 12/03/20 05:00 04:40 04:55 BUN 44 H 55 H 71 H Creatinine 1.6 H 1.8 H 2.2 H Estimated GFR (MDRD) 41 L 36 L 29 L 12/03/20 12/02/20 12/02/20 00:00 17:28 08:00 BUN 72 H 79 H 84 H* Creatinine 2.4 H 2.7 H 2.8 H Estimated GFR (MDRD) 26 L 23 L 22 L Vancomycin Monitoring 12/05/20 12/04/20 12/03/20 05:00 04:40 04:55 Random Vancomycin 23.8 18.0 26.0 Cultures 12/02/20 09:19 Blood Blood Culture - Preliminary NO GROWTH AFTER 2 DAYS 12/02/20 08:00 Blood Blood Culture - Preliminary NO GROWTH AFTER 2 DAYS Monitoring plan: Daily serum creatinine, Suggest ongoing fluid replacement Areas for additional monitoring: IV to PO when appropriate, Therapy de-es calation based on culture results Pharmacy recommendation: Continue current regime (Based on patient's improving renal function, half life is estimated to be between 24 and 30 hours. Will continue with vancomycin 1 gm q24h. Plan to order a level prior to tomorrow's dose if therapy is continued.)
[2020-12-05] MEDS ORDERED: VANCOMYCIN INJ 1 GM in SODIUM CHLORIDE 0.9% 250 ML IV SCH (13:00)
[2020-12-05] MEDS: WARFARIN 2.5 MG TABLET PO SCH (13:31)
[2020-12-05] MEDS ORDERED: cefTRIAXone 2 GM in SODIUM CHLORIDE 0.9% MINIBAG 100 ML IV SCH (16:00)
[2020-12-05] MEDS: SODIUM CHLORIDE FLUSH 0.9% 10 ML SYRINGE IVP PRN (17:12)
[2020-12-05] MEDS: ATORVASTATIN 40 MG TABLET PO SCH (20:55)
[2020-12-06 04:52] LABS: BASOPHILS % (AUTO) 0.4 %; EOSINOPHILS # (AUTO) 0.1 10^3/uL (0.0-0.7); EOSINOPHILS % (AUTO) 0.6 %; HGB - HEMOGLOBIN 10.7 g/dL (14.0-18.0); LYMPHOCYTES # (AUTO) 0.7 10^3/uL (1.5-3.5); LYMPHOCYTES % (AUTO) 6.2 %; MEAN CORPUSCULAR HEMOGLOBIN 30.6 pg (27.0-31.0); MEAN CORPUSCULAR HGB CONC 32.4 g/dL (32.0-36.0); MEAN CORPUSCULAR VOLUME 94.3 fL (80.0-94.0); MEAN PLATELET VOLUME 10.7 fL (7.4-11.4); MONOCYTES # (AUTO) 0.9 10^3/uL (0.0-1.0); MONOCYTES % (AUTO) 7.8 %; NEUTROPHILS # (AUTO) 9.5 10^3/uL (1.5-6.6); NEUTROPHILS % (AUTO) 83.2 %; NRBC ABSOLUTE COUNT (AUTO) 0.02 x10^3/uL; NUCLEATED RED BLOOD CELLS AUTO 0.2 /100WBC; PLT - PLATELET COUNT 123 10^3/uL (130-450); RED CELL DISTRIBUTION WIDTH 17.3 % (12.0-15.0); WHITE BLOOD COUNT 11.4 x10^3/uL (4.8-10.8)
[2020-12-06 04:57] LABS: INR 2.8 (0.8-1.2); PT - PROTHROMBIN TIME 29.1 secs (9.9-12.6)
[2020-12-06 05:08] LABS: CALCIUM 8.3 mg/dL (8.5-10.3); CREATININE 1.5 mg/dL (0.6-1.2); CRP - C-REACTIVE PROTEIN 9.2 mg/dL (0-1.0); POTASSIUM 4.1 mmol/L (3.5-5.0)
[2020-12-06] MEDS: ACETAMINOPHEN 325 MG TABLET PO PRN (05:31)
--- NOTE | 2020-12-06 07:33 | PROVIDER PROGRESS NOTE ---
Subjective - Prog Note Date Prog Note Date: 12/06/20 - Subjective Subjective: He continues to report feeling well each day. Still has pain in his left lower extremity on palpation. Has been able to get out of bed and ambulate with physical therapy. Current Medications - Current Medications Current Medications: Active Medications Acetaminophen (Acetaminophen 325 Mg Tablet) 650 mg PO Q4HR PRN PRN Reason: Pain 1 to 4 Last Admin: 12/06/20 05:31 Dose: 650 mg Documented by: Hydrocodone Bitart/Acetaminophen (Hydrocod/Acetam 7.5 Mg/325 Mg Tablet) 1 tab PO Q6HR PRN PRN Reason: PAIN Atorvastatin Calcium (Atorvastatin 40 Mg Tablet) 40 mg PO QPM [facility] Last Admin: 12/05/20 20:55 Dose: 40 mg Documented by: Carboxymethylcellulose (Carboxymethylcellulose Ophth Drops) 1 drops EACHEYE PRN PRN PRN Reason: Dry Eye Last Admin: 12/04/20 13:29 Dose: 1 drops Documented by: Furosemide (Furosemide 40 Mg Tablet) 40 mg PO DAILY [facility] Last Admin: 12/05/20 08:16 Dose: 40 mg Documented by: Metoprolol Tartrate (Metoprolol Tartrate 50 Mg Tablet) 50 mg PO BID [facility] Last Admin: 12/05/20 20:56 Dose: 50 mg Documented by: Morphine Sulfate (Morphine Ir 15 Mg Tablet) 15 mg PO DAILY PRN PRN Reason: PAIN Last Admin: 12/05/20 10:10 Dose: 15 mg Documented by: Prednisone (Prednisone 10 Mg Tablet) 15 mg PO DAILYWM [facility] Last Admin: 12/05/20 08:16 Dose: 15 mg Documented by: Saccharomyces Boulardii (Saccharomyces Boulardii 250 Mg Capsule) 250 mg PO BIDWM [facility] Last Admin: 12/05/20 17:13 Dose: 250 mg Documented by: Sodium Chloride (Sodium Chloride Flush 0.9% 10 Ml Syringe) 10 ml IVP PRN PRN PRN Reason: NEEDED PER PROVIDER ORDERS Last Admin: 12/05/20 17:12 Dose: 30 ml Documented by: Sodium Chloride (Sodium Chloride Flush 0.9% 10 Ml Syringe) 10 ml IVP 0100,0900 ,1700 [facility] Last Admin: 12/05/20 23:55 Dose: 10 ml Documented by: Sodium Chloride (Sodium Chloride Flush 0.9% 10 Ml Syringe) 20 ml IVP PRN PRN PRN Reason: After Blood Draw Last Admin: 12/04/20 04:46 Dose: 20 ml Documented by: Vancomycin HCl (Vancomycin: Pharmacy To Dose) 1 each .ONCE PRN PRN Reason: PER PHARMACY Warfarin Sodium (Warfarin 2.5 Mg Tablet) 2.5 mg PO QDWARFARIN [facility] Last Admin: 12/05/20 13:31 Dose: 2.5 mg Documented by: Cyanocobalamin (Vitamin B-12) [Vitamin B-12] 250 mcg PO DAILY 04/26/14 [place]-3 Fatty Acids [Fish Oil] 1,000 mg PO DAILY 04/26/14 Atorvastatin Calcium 40 mg PO QPM 10/13/16 Warfarin Sodium [Jantoven] 2.5 mg PO DAILY 10/13/16 Furosemide 40 mg PO DAILY 03/03/20 Potassium Chloride 20 meq PO DAILY 03/07/20 predniSONE [Prednisone] 1 tab PO DAILY 03/07/20 Metoprolol Tartrate [Lopressor] 25 mg PO BID 12/02/20 Morphine ER [Morphine Sulfate ER] 15 mg PO BID 12/03/20 Objective - Vital Signs/Intake & Output Reviewed Vital Signs: Yes Vital Signs: Vital Signs x48h Temp Pulse Pulse Resp BP BP Pulse Ox 12/06/20 04:47 36.9 C 102 H 20 132/81 H 98 12/06/20 00:00 36.6 C 91 18 147/84 H 100 Intake & Output: Intake & Output 12/03/20 12/04/20 12/05/20 12/06/20 23:59 23:59 23:59 23:59 Intake Total 3670 2510 1090 250 Output Total 1145 1550 650 400 Balance 2525 960 440 -150 - Objective General Appearance: positive: No acute distress, Alert Eyes Bilateral: positive: Normal inspection, Conjunctivae nml ENT: positive: ENT inspection nml Neck: positive: Nml inspection Respiratory: positive: No respiratory distress. negative: Wheezes, Rales Cardiovascular: positive: Irregularly irregular. negative: Tachycardia, Syst olic murmur Abdomen: positive: Non-tender, No distention. negative: Tenderness Skin: positive: Other (The erythema over his left lower extremity is decreasing in size. It is still warm to touch and there is still ++2 pitting edema. A fluid-filled blister is present over the posterior aspect of the leg inferior to the calf. This is draining yellow clear fluid.) Extremities: positive: Pedal edema (+2 pitting edema in the bilateral lower extremities) Neurologic/Psychiatric: negative: Disoriented to person, Disoriented to place - Lab Results Fish Bones: 12/06/20 04:35 12/06/20 04:35 Other Labs: Lab Results x24hrs 12/06/20 12/06/20 12/06/20 Range/Units 04:35 04:35 04:35 WBC 11.4 H (4.8-10.8) x10^3/uL RBC 3.50 L (4.70-6.10) 10^6/uL Hgb 10.7 L (14.0-18.0) g/dL Hct 33.0 L (42.0-52.0) % MCV 94.3 H (80.0-94.0) fL MCH 30.6 (27.0-31.0) pg MCHC 32.4 (32.0-36.0) g/dL RDW 17.3 H (12.0-15.0) % Plt Count 123 L (130-450) 10^3/uL MPV 10.7 (7.4-11.4) fL Neut # (Auto) 9.5 H (1.5-6.6) 10^3/uL Lymph # (Auto) 0.7 L (1.5-3.5) 10^3/uL [place] # (Auto) 0.9 (0.0-1.0) 10^3/uL Eos # (Auto) 0.1 (0.0-0.7) 10^3/uL Baso # (Auto) 0.0 (0.0-0.1) 10^3/uL Absolute Nucleated RBC 0.02 x10^3/uL Nucleated RBC % 0.2 /100WBC PT 29.1 H (9.9-12.6) secs INR 2.8 H (0.8-1.2) Sodium 141 (135-145) mmol/L Potassium 4.1 (3.5-5.0) mmol/L Chloride 111 (101-111) mmol/L Carbon Dioxide 21 (21-32) mmol/L Anion Gap 9.0 (6-13) BUN 45 H (6-20) mg/dL Creatinine 1.5 H (0.6-1.2) mg/dL Estimated GFR (MDRD) 44 L (>89) Glucose 104 H (70-100) mg/dL Calcium 8.3 L (8.5-10.3) mg/dL C-Reactive Protein 9.2 H (0-1.0) mg/dL ABX Reporting Has patient been on IV antibiotics over the past 48 hours?: Yes Sepsis Event Note (H) - Evaluation Current Stage of Sepsis: Resolved Possible source of Sepsis: positive: Skin/soft tissue - Sepsis Criteria Sepsis Criteria: WBC count greater than 12,000 or less than 4000, Renal: urine output less than 0.5ml/kg/hr for 2 hours or creatinine gr, Metabolic: lactate > 2 mmol/L Assessment/Plan - Problem List (1) Sepsis Impression: At this point in time, his sepsis appears to have resolved. His white count has nearly normalized. His blood pressure has remained stable and he remains afebrile. Blood cultures have been negative to date. We will switch him to oral doxycycline tomorrow and discontinue the vancomycin IV then. If he remains stable over next 24 hours after transition to oral antibiotics then he can likely be discharged the following day on oral antibiotics. (2) Cellulitis of left lower extremity Impression: This was the cause of his sepsis. His white count has now nearly normalized and his CRP continues to decrease. His left lower extremity erythema appears improved but still quite erythematous. We will keep him on vancomycin IV for 1 more day and switch to oral doxycycline tomorrow. He will need to be monitored for 24 hours after changing to oral antibiotics to ensure the cellulitis continues to improve. (3) Acute on chronic renal insufficiency Impression: His acute kidney injury has resolved and his renal function is back to baseline with a creatinine of 1.5. We resumed his home oral diuretics yesterday given his lower extremity edema and chronic lymphedema. (4) Atrial fibrillation Impression: His heart rate has varied from the 70s to the 120s. We did increase his home oral metoprolol to 50 mg twice daily yesterday. We will continue this current dose and monitor his heart rate other day. If he remains tachycardic we will increase his metoprolol. We will continue to monitor on telemetry and continue his Coumadin. Qualifiers: Atrial fibrillation type: permanent Qualified Code(s): I48.21 - Permanent atrial fibrillation (5) Hypertension Impression: His blood pressure has been stable with systolic in the 130s. We will continue the current dose of metoprolol but will increase it if necessary if his heart rate remains poorly controlled. (6) Bullous disorder, unspecified Impression: We have resumed his home oral prednisone taper. He will continue to follow-up with his primary care provider on discharge. (7) Rheumatoid arthritis Impression: He failed prior therapy with Remicade and methotrexate. We have resumed his prednisone taper for the bullous pemphigoid. No NSAIDs due to his chronic kidney disease. (8) Peripheral arterial disease Impression: He had an arterial duplex earlier this month which was concerning for occlusion of the right anterior tibial artery. There was evidence of collateral flow. He does have a few small wounds over the lateral aspect of his right lower extremity which I suspect is related to his arterial insufficiency. We will continue with medical management. Vascular surgery referral can be considered on outpatient basis. (9) Lymphedema Impression: Duplex on admission not reveal any obvious DVT. We resumed his home oral Lasix yesterday and his renal function has remained stable. We will continue to hold off on compression stockings for the time being given his cellulitis and lower extremity wounds. Continue with leg elevation as tolerated.
[2020-12-06] MEDS: SACCHAROMYCES BOULARDII 250 MG CAPSULE PO SCH ×2 (08:07→16:41)
[2020-12-06] MEDS: FUROSEMIDE 40 MG TABLET PO SCH (08:08)
[2020-12-06] MEDS: predniSONE 10 MG TABLET PO SCH (08:08)
[2020-12-06] MEDS: METOPROLOL TARTRATE 50 MG TABLET PO SCH (08:08)
[2020-12-06] MEDS: SODIUM CHLORIDE FLUSH 0.9% 10 ML SYRINGE IVP SCH ×3 (08:09→23:46)
[2020-12-06] MEDS ORDERED: VANCOMYCIN INJ 1 GM in SODIUM CHLORIDE 0.9% 250 ML IV SCH (13:00)
[2020-12-06] MEDS: WARFARIN 2.5 MG TABLET PO SCH (14:28)
[2020-12-06] MEDS: MORPHINE IR 15 MG TABLET PO PRN (15:42)
[2020-12-06] MEDS ORDERED: METOPROLOL TARTRATE 50 MG TABLET PO SCH (21:00)
[2020-12-06] MEDS: ATORVASTATIN 40 MG TABLET PO SCH (22:35)
[2020-12-07 05:08] LABS: BASOPHILS % (AUTO) 0.5 %; EOSINOPHILS # (AUTO) 0.1 10^3/uL (0.0-0.7); EOSINOPHILS % (AUTO) 1.2 %; HCT - HEMATOCRIT 33.3 % (42.0-52.0); HGB - HEMOGLOBIN 10.9 g/dL (14.0-18.0); LYMPHOCYTES # (AUTO) 0.7 10^3/uL (1.5-3.5); LYMPHOCYTES % (AUTO) 8.2 %; MEAN CORPUSCULAR HEMOGLOBIN 30.8 pg (27.0-31.0); MEAN CORPUSCULAR HGB CONC 32.7 g/dL (32.0-36.0); MEAN CORPUSCULAR VOLUME 94.1 fL (80.0-94.0); MONOCYTES # (AUTO) 0.9 10^3/uL (0.0-1.0); MONOCYTES % (AUTO) 10.2 %; NEUTROPHILS # (AUTO) 6.6 10^3/uL (1.5-6.6); PLT - PLATELET COUNT 139 10^3/uL (130-450); RED BLOOD COUNT 3.54 10^6/uL (4.70-6.10); RED CELL DISTRIBUTION WIDTH 16.9 % (12.0-15.0); WHITE BLOOD COUNT 8.5 x10^3/uL (4.8-10.8)
[2020-12-07 05:24] LABS: CALCIUM 8.3 mg/dL (8.5-10.3); CREATININE 1.8 mg/dL (0.6-1.2); CRP - C-REACTIVE PROTEIN 4.9 mg/dL (0-1.0); POTASSIUM 4.1 mmol/L (3.5-5.0)
--- NOTE | 2020-12-07 08:29 | PROVIDER PROGRESS NOTE ---
Assessment/Plan - Problem List (1) Sepsis Assessment/Plan: Resolved. Patient's white blood cell count today was normal at 8.5. Blood pressure remained stable. Blood cultures have been no growth to date. V ancomycin IV was discontinued today . Doxycycline 100 mg p.o. twice daily was started today. Plan is to continue for a total of 3 days. Plan is for discharge home tomorrow (2) Cellulitis of left lower extremity Assessment/Plan: Improving. Patient's white blood cell count today was normal at 8.5. Blood pressure remained stable. Blood cultures have been no growth to date. Vancomycin IV was discontinued today . Doxycycline 100 mg p.o. twice daily was started today. Plan is to continue for a total of 3 days. (3) Acute on chronic renal insufficiency Assessment/Plan: Creatinine today was 1.8. However overall patient's renal function is improved from admission. Continue his home diuretics for lower extremity edema and chronic lymphedema. (5) Hypertension Assessment/Plan: Currently on metoprolol succinate 75 mg p.o. twice daily. (6) Rheumatoid arthritis Assessment/Plan: He failed prior therapy with Remicade and methotrexate. We have resumed his prednisone taper for the bullous pemphigoid. No NSAIDs due to his chronic kidney disease. (7) Atrial fibrillation Qualifiers: Atrial fibrillation type: permanent Qualified Code(s): I48.21 - Permanent atrial fibrillation Assessment/Plan: Heart rate fluctuates between 70s to 120s. Patient's medication changed to metoprolol succinate 75 mg p.o. twice daily. We will monitor patient through the day. Continue his Coumadin. INR today was 2.8. Will recheck in the morning. (8) Bullous disorder, unspecified Assessment/Plan: We have resumed his prednisone taper for the bullous pemphigoid. He will continue to follow-up with his primary care provider on discharge. (9) Lymphedema Assessment/Plan: Duplex on admission not reveal any obvious DVT. We resumed his home oral Lasix yesterday and his renal function has remained stable. We will continue to hold off on compression stockings for the time being given his cellulitis and lower extremity wounds. Continue with leg elevation as tolerated. (10) Peripheral arterial disease Assessment/Plan: He had an arterial duplex earlier this month which was concerning for occlusion of the right anterior tibial artery. There was evidence of collateral flow. He does have a few small wounds over the lateral aspect of his right lower extremity which I suspect is related to his arterial insufficiency. We will continue with medical management. Vascular surgery referral can be considered on outpatient basis. - Current Meds Current Meds: Current Medications Generic Name Dose Route Start Last Admin Trade Name Freq PRN Reason Stop Dose Admin Acetaminophen 650 mg 12/02/20 09:19 12/06/20 05:31 Acetaminophen 325 Mg Tablet PO 650 mg Q4HR PRN Administration Pain 1 to 4 Atorvastatin Calcium 40 mg 12/02/20 21:00 12/06/20 22:35 Atorvastatin 40 Mg Tablet PO 40 mg QPM [facility] Administration Carboxymethylcellulose 1 drops 12/04/20 08:57 12/04/20 13:29 Carboxymethylcellulose Ophth Drops EACHEYE 1 drops PRN PRN Administration Dry Eye Furosemide 40 mg 12/05/20 09:00 12/06/20 08:08 Furosemide 40 Mg Tablet PO 40 mg DAILY [facility] Administration Morphine Sulfate 15 mg 12/02/20 19:12 12/06/20 15:42 Morphine Ir 15 Mg Tablet PO 15 mg DAILY PRN Administration PAIN Prednisone 15 mg 12/05/20 08:00 12/06/20 08:08 Prednisone 10 Mg Tablet PO 15 mg DAILYWM [facility]AC[facility] Administration Saccharomyces Boulardii 250 mg 12/04/20 17:00 12/06/20 16:41 Saccharomyces Boulardii 250 Mg Capsule PO 250 mg BIDWM [facility]ACY Administration Sodium Chloride 10 ml 12/02/20 09:19 12/05/20 17:12 Sodium Chloride Flush 0.9% 10 Ml Syringe IVP 30 ml PRN PRN Administration NEEDED PER PROVIDER ORDERS Sodium Chloride 10 ml 12/02/20 17:00 12/06/20 23:46 Sodium Chloride Flush 0.9% 10 Ml Syringe IVP 30 ml 0100,0900,1700 [facility] Administration Sodium Chloride 20 ml 12/03/20 02:35 12/04/20 04:46 Sodium Chloride Flush 0.9% 10 Ml Syringe IVP 20 ml PRN PRN Administration After Blood Draw Warfarin Sodium 2.5 mg 12/03/20 14:00 12/06/20 14:28 Warfarin 2.5 Mg Tablet PO 2.5 mg QDWARFARIN [facility] Administration - Lab Result Fish Bone Diagrams: 12/07/20 05:00 12/07/20 05:00 - Additional Planning My Orders: My Active Orders 12/07/20 09:00 Doxycycline [Vibramycin] 100 mg PO BID Metoprolol Succinate [Toprol Xl] 75 mg PO BID 12/08/20 05:00 PT WITH INR [COAG] DAILYLAB 12/09/20 05:00 PT WITH INR [COAG] DAILYLAB Subjective - Subjective Patient Reports: Other (Sitting comfortably in bed. Denied any complaints. Legs are currently wrapped with bandage. Left leg appears to be draining. Band age soaked. Legs are warm bilaterally.) Objective Vital Signs: Vital Signs - 24 hr 12/06/20 12/06/20 12/06/20 11:32 16:09 20:14 Temperature 37.2 C 36.9 C 36.8 C Heart Rate [ Brachial] Heart Rate [ 130 H 100 111 H Monitoring electrodes] Respiratory 16 18 18 Rate Blood Pressure Blood Pressure 143/83 H 164/72 H 154/87 H [Right Brachial artery] O2 Saturation 99 100 98 12/06/20 12/07/20 12/07/20 21:03 00:00 03:26 Temperature 36.8 C 36.5 C Heart Rate [ 61 Brachial] Heart Rate [ 107 H Monitoring electrodes] Respiratory 18 16 Rate Blood Pressure 158/90 H Blood Pressure 147/97 H 147/99 H [Right Brachial artery] O2 Saturation 99 100 Oxygen O2 Source Room air I&O (Last 24 Hrs): Intake and Output Totals x24h 12/05/20 12/06/20 12/07/20 23:59 23:59 23:59 Intake Total 1090 1470 320 Output Total 650 650 300 Balance 440 820 20 General: Alert, Oriented x3, No acute distress HEENT: Atraumatic, PERRLA, EOMI Neck: Supple, No JVD Neuro: Alert, Non Focal, Oriented Times 3 Cardiovascular: Other (Irregularly irregular rhythm, mildly tachycardic) Respiratory: Chest non-tender, No respiratory distress, Breath sounds nml Abdomen: Normal bowel sounds, Soft, No tenderness, No masses Extremities: Other (Hyperemic. lymphedema bilaterally 2+, blisters noted, legs weeping, draining yellowish clear fluid) - Results Results: Laboratory Results WBC 8.5 x10^3/uL (4.8-10.8) 12/07/20 05:00 RBC 3.54 10^6/uL (4.70-6.10) L 12/07/20 05:00 Hgb 10.9 g/dL (14.0-18.0) L 12/07/20 05:00 Hct 33.3 % (42.0-52.0) L 12/07/20 05:00 MCV 94.1 fL (80.0-94.0) H 12/07/20 05:00 MCH 30.8 pg (27.0-31.0) 12/07/20 05:00 MCHC 32.7 g/dL (32.0-36.0) 12/07/20 05:00 RDW 16.9 % (12.0-15.0) H 12/07/20 05:00 Plt Count 139 10^3/uL (130-450) 12/07/20 05:00 MPV 11.0 fL (7.4-11.4) 12/07/20 05:00 Neut # (Auto) 6.6 10^3/uL (1.5-6.6) 12/07/20 05:00 Lymph # (Auto) 0.7 10^3/uL (1.5-3.5) L 12/07/20 05:00 [place] # (Auto) 0.9 10^3/uL (0.0-1.0) 12/07/20 05:00 Eos # (Auto) 0.1 10^3/uL (0.0-0.7) 12/07/20 05:00 Baso # (Auto) 0.0 10^3/uL (0.0-0.1) 12/07/20 05:00 Absolute Nucleated RBC 0.00 x10^3/uL 12/07/20 05:00 Total Counted 100 12/04/20 04:40 Band Neuts % (Manual) 6 % (0-10) 12/04/20 04:40 Abnorm Lymph % (Manual) 0 % 12/04/20 04:40 Metamyelocytes % 1 % (-0) H 12/02/20 17:28 Myelocytes % 1 % (-0) H 12/02/20 17:28 Nucleated RBC % 0.0 /100WBC 12/07/20 05:00 Neutrophils # (Manual) 16.3 10^3/uL (1.5-6.6) H 12/04/20 04:40 Lymphocytes # (Manual) 0.9 10^3/uL (1.5-3.5) L 12/04/20 04:40 Monocytes # (Manual) 0.2 10^3/uL (0.0-1.0) 12/04/20 04:40 Eosinophils # (Manual) 0.0 10^3/uL (0-0.7) 12/04/20 04:40 Basophils # (Manual) 0.0 10^3/uL (0-0.1) 12/04/20 04:40 Differential Comment MANUAL DIFFERENTIAL 12/04/20 04:40 WBC Morphology NORMAL APPEARANCE (NORMAL) 12/04/20 04:40 Platelet Estimate NORMAL (130-450,000) (NORMAL) 12/04/20 04:40 Platelet Morphology NORMAL APPEARANCE (NORMAL) 12/04/20 04:40 RBC Morph Micro Appear 1+ OVALOCYTES (NORMAL) 12/04/20 04:40 PT 29.1 secs (9.9-12.6) H 12/06/20 04:35 INR 2.8 (0.8-1.2) H 12/06/20 04:35 Sodium 140 mmol/L (135-145) 12/07/20 05:00 Potassium 4.1 mmol/L (3.5-5.0) 12/07/20 05:00 Chloride 112 mmol/L (101-111) H 12/07/20 05:00 Carbon Dioxide 21 mmol/L (21-32) 12/07/20 05:00 Anion Gap 7.0 (6-13) 12/07/20 05:00 BUN 48 mg/dL (6-20) H 12/07/20 05:00 Creatinine 1.8 mg/dL (0.6-1.2) H 12/07/20 05:00 Estimated GFR (MDRD) 36 (>89) L 12/07/20 05:00 Glucose 92 mg/dL (70-100) 12/07/20 05:00 Lactic Acid 1.7 mmol/L (0.5-2.2) 12/03/20 00:00 Calcium 8.3 mg/dL (8.5-10.3) L 12/07/20 05:00 Total Bilirubin 1.1 mg/dL (0.2-1.0) H 12/02/20 08:00 AST 25 IU/L (10-42) 12/02/20 08:00 ALT 27 IU/L (10-60) 12/02/20 08:00 Alkaline Phosphatase 62 IU/L (42-121) 12/02/20 08:00 C-Reactive Protein 4.9 mg/dL (0-1.0) H 12/07/20 05:00 Total Protein 5.7 g/dL (6.7-8.2) L 12/02/20 08:00 Albumin 2.1 g/dL (3.2-5.5) L 12/04/20 04:40 Globulin 2.6 g/dL (2.1-4.2) 12/02/20 08:00 Albumin/Globulin Ratio 1.2 (1.0-2.2) 12/02/20 08:00 Lipase 29 U/L (22-51) 12/02/20 08:00 Nasal Adenovirus (PCR) NOT DETECTED 12/02/20 09:50 Nasal B. parapertussis DNA (PCR) NOT DETECTED 12/02/20 09:50 Nasal Coronavir 229E PCR NOT DETECTED 12/02/20 09:50 Nasal Coronavir HKU1 PCR NOT DETECTED 12/02/20 09:50 Nasal Coronavir NL63 PCR NOT DETECTED 12/02/20 09:50 Nasal Coronavir OC43 PCR NOT DETECTED 12/02/20 09:50 Nasal Enterovir/Rhinovir PCR NOT DETECTED 12/02/20 09:50 Nasal Influenza B PCR NOT DETECTED 12/02/20 09:50 Nasal Influenza A PCR NOT DETECTED 12/02/20 09:50 Nasal Parainfluen 1 PCR NOT DETECTED 12/02/20 09:50 Nasal Parainfluen 2 PCR NOT DETECTED 12/02/20 09:50 Nasal Parainfluen 3 PCR NOT DETECTED 12/02/20 09:50 Nasal Parainfluen 4 PCR NOT DETECTED 12/02/20 09:50 Nasal RSV (PCR) NOT DETECTED 12/02/20 09:50 Nasal Screen MRSA (PCR) NEGATIVE (NEGATIVE) 12/02/20 17:54 Nasal B.pertussis DNA PCR NOT DETECTED 12/02/20 09:50 Nasal C.pneumoniae (PCR) NOT DETECTED 12/02/20 09:50 Viktor Human Metapneumo PCR NOT DETECTED 12/02/20 09:50 Nasal M.pneumoniae (PCR) NOT DETECTED 12/02/20 09:50 Nasal SARS-CoV-2 (PCR) NOT DETECTED 12/02/20 09:50 Last Dose Date 12/04/20 12/05/20 05:00 Last Dose Time 1300 12/05/20 05:00 Random Vancomycin 23.8 ug/mL 12/05/20 05:00 Sepsis Event Note (H) - Evaluation Current Stage of Sepsis: Resolved Possible source of Sepsis: positive: Skin/soft tissue - Sepsis Criteria Sepsis Criteria: WBC count greater than 12,000 or less than 4000, Renal: urine output less than 0.5ml/kg/hr for 2 hours or creatinine gr, Metabolic: lactate > 2 mmol/L ABX Reporting Has patient been on IV antibiotics over the past 48 hours?: No
[2020-12-07] MEDS: FUROSEMIDE 40 MG TABLET PO SCH (08:36)
[2020-12-07] MEDS: SACCHAROMYCES BOULARDII 250 MG CAPSULE PO SCH ×2 (08:36→17:56)
[2020-12-07] MEDS: predniSONE 10 MG TABLET PO SCH (08:36)
[2020-12-07] MEDS: DOXYCYCLINE 100 MG TABLET PO SCH ×2 (08:40→20:44)
[2020-12-07] MEDS: METOPROLOL SUCCINATE 50 MG TABLET PO SCH ×2 (08:41→20:44)
[2020-12-07] MEDS: SODIUM CHLORIDE FLUSH 0.9% 10 ML SYRINGE IVP SCH ×2 (08:43→16:11)
[2020-12-07] MEDS ORDERED: WARFARIN 2.5 MG TABLET PO SCH (13:54)
[2020-12-07] MEDS: CHOLECALCIFEROL 25 MCG TABLET PO SCH (14:01)
[2020-12-07] MEDS: ATORVASTATIN 40 MG TABLET PO SCH (20:44)
[2020-12-08] MEDS: SODIUM CHLORIDE FLUSH 0.9% 10 ML SYRINGE IVP SCH ×2 (00:35→08:43)
[2020-12-08] MEDS: ACETAMINOPHEN 325 MG TABLET PO PRN (05:09)
[2020-12-08 06:30] LABS: INR 3.8 (0.8-1.2); PT - PROTHROMBIN TIME 38.8 secs (9.9-12.6)
--- NOTE | 2020-12-08 07:28 | DISCHARGE SUMMARY ---
Discharge Summary Admit Date: 12/02/20 Discharge Date: 12/08/20 Discharging Provider: Ana Rosa Reynaga Primary Care Provider: Elisabet Banks Code Status: Do Not Attempt Resuscitation Condition at Discharge: Stable Discharge Disposition: 01 Home, Self Care - DIAGNOSES Admission Diagnoses: Sepsis Cellulitis of left lower extremity Acute on chronic renal insufficiency Hyperlipidemia Hypertension Rheumatoid arthritis Atrial fibrillation Bullous disorder, unspecified Lymphedema Peripheral arterial disease Discharge Diagnoses with Status of Each Condition: Sepsis: Resolved Cellulitis of left lower extremity: Improving/resolved Acute on chronic renal insufficiency: Improved Hyperlipidemia: Chronic Hypertension: Chronic Rheumatoid arthritis: Chronic Atrial fibrillation: Chronic Bullous disorder, unspecified: Chronic Lymphedema: Chronic Peripheral arterial disease: Chronic - HPI History of Present Illness: Patient is 85-year-old male with medical history significant for hypertension, atrial fibrillation on Coumadin, 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 The pain was very significant last night such that he was unable to sleep. He also reported having chills last night. He had a fever when EMS checked upon arrival to his residence. In the ED he was found to have a white blood cell count of 12.8, lactic acid of 2.8, creatinine 2.8, significant bilateral lower extremity edema and extreme tenderness in the left lower extremity. As a result he was presented for admission for further treatment. At bedside he is resting comfortably. He denies chest pain, dyspnea, abdominal pain, nausea, vomiting. Patient was initially admitted to the [facility] floor and started on vancomycin. However in the course of the first day his clinical status seem to worsen. His white blood cell count became elevated to 19 and his lactic acid went from 2.8- 4.9. Consequently he was transferred to the ICU and antibiotics were broadened from just vancomycin to include cefepime and Flagyl. Patient was given IV hydration as well. Throughout his hospital stay his blood cultures did not grow any organisms. His lower extremity erythema improved significantly. He was also in atrial fibrillation with rapid ventricular rhythm consequently he is metoprolol tartrate was increased. The highest dose of metoprolol tartrate he was on during the hospital stay was 100 mg p.o. twice daily. Upon discharge he is home metoprolol tartrate was discontinued and he was placed on metoprolol succinate 75 mg p.o. twice daily. It is expected that he will continue this going forward. Upon discharge he was ordered 2 days worth of doxycycline 100 mg p.o. twice daily. Upon completion he would have been on antibiotics for a total of 8 days. His INR by the day of discharge was 3.8. This is likely affected by the doxycycline he started the day before discharge. He was advised not to take Coumadin on 12/08/20. He has a follow-up appointment with his primary care physician Dr. Elisabet Banks on 12/10/20. It is expected that his primary care physician will check his INR. At time of initial treatment his prednisone taper was held for concern of sepsis/septic shock. This was resumed a few days before discharge. It is used to treat his bullous pemphigoid and indirectly rheumatoid arthritis. His renal function overall improved during his hospital stay. His creatinine at the time of discharge was 1.8. At admission the creatinine was 2.8. Patient has home health care for wound dressings. It is assumed that this will continue upon discharge. Shortly before admission He had arterial Dopplers done which showed occlusion of the anterior tibial artery. However there were collaterals. It was also determined that the finidings were not acute. Patient is expected to follow-up with his primary care physician for referral to a vascular surgeon. Venous Doppler of his left lower extremity was negative for DVT. Patient was seen by physical therapy during his hospital stay. He will be going home with PT, OT and a bath aide. - ALLERGIES Allergies/Adverse Reactions: Allergies Allergy/AdvReac Type Severity Reaction Status Date / Time No Known Drug Allergies Allergy Verified 12/02/20 07:54 - MEDICATIONS Home Medications: Ambulatory Orders Medication Instructions Recorded Confirmed Cyanocobalamin (Vitamin B-12) 250 mcg PO DAILY 04/26/14 12/02/20 [Vitamin B-12] [place]-3 Fatty Acids [Fish Oil] 1,000 mg PO DAILY 04/26/14 12/02/20 Atorvastatin Calcium 40 mg PO QPM 10/13/16 12/02/20 Warfarin Sodium [Jantoven] 2.5 mg PO DAILY 10/13/16 12/02/20 Furosemide 40 mg PO DAILY 03/03/20 12/02/20 Potassium Chloride 20 meq PO DAILY 03/07/20 12/02/20 predniSONE [Prednisone] 1 tab PO DAILY 03/07/20 12/02/20 Morphine ER [Morphine Sulfate ER] 15 mg PO BID 12/03/20 12/03/20 Doxycycline Hyclate 100 mg PO BID 2 Days #4 cap 12/07/20 Metoprolol Succinate [Toprol Xl] 75 mg PO BID 30 Days #60 tablet 12/08/20 - PHYSICAL EXAM AT DISCHARGE General Appearance: positive: No acute distress, Alert Eyes Bilateral: positive: PERRL, EOMI ENT: positive: No signs of dehydration Neck: positive: No JVD, Trachea midline Respiratory: positive: Chest non-tender, No respiratory distress, Breath sounds nml. negative: Wheezes, Rales, Rhonchi Cardiovascular: positive: Irregularly irregular Abdomen: positive: Non-tender, No organomegaly, Nml bowel sounds, No distention. negative: Guarding, Rebound Back: positive: Nml inspection Skin: positive: Other (lower extremities are hyperemic with blisters and ulcers) Extremities: positive: Other (2+ pitting edema. Chronic lymph edema. blisters and wounds noted. weeping) Neurologic/Psychiatric: positive: Oriented x3, Mood/affect nml - LABS Result Diagrams: 12/08/20 07:36 12/08/20 05:30 - SEPSIS Current Stage of Sepsis: Resolved Possible source of Sepsis: Skin/soft tissue Sepsis Criteria: WBC count greater than 12,000 or less than 4000, Renal: urine output less than 0.5ml/kg/hr for 2 hours or creatinine gr, Metabolic: lactate > 2 mmol/L - FOLLOW UP Follow Up: Elisabet Banks (PCP) on 12/10/20 - TIME SPENT Time Spent in Discharge (Minutes): 25
--- NOTE | 2020-12-08 07:28 | Discharge Plan ---
Discharge Plan Problem Reviewed?: Yes Disposition: Home, Self Care Condition: Stable Prescriptions: Doxycycline Hyclate 100 mg PO BID 2 Days #4 cap Metoprolol Succinate [Toprol Xl] 75 mg PO BID 30 Days #60 tablet Diet: Cardiac Activity Restrictions: Activity as Tolerated Assistance Devices: [facility] Concerns: You were admitted with sepsis thought to be secondary to left lower extremity cellulitis. You were treated with vancomycin, cefepime and Flagyl. Upon discharge you were prescribed 2 days worth of doxycycline 100 mg p.o. twice daily. Your Coumadin was continued while you were in the hospital however on the day of discharge your INR was 3.8. You have been instructed not to take your Coumadin on 12/08/20. You have a follow-up appointment with your primary care physician Dr. Elisabet Banks on 12/10/20. It is expected that she will check your INR then as well. You have atrial fibrillation and on metoprolol tartrate at home. However metoprolol tartrate was discontinued and metoprolol succinate 75 mg p.o. twice daily was ordered. You are expected to continue taking this from now on. This will be sent to your pharmacy as well. Your prednisone was resumed. You have chronic lymphedema and bullous pemphigoid. This is managed by her primary care physician. It is expected that she would resume management of this. It is also expected that the home health wound care management of the lower extremities will continue upon discharge. Your creatinine upon discharge was 1.8. At admission it was 2.8. Overall your renal function improved during your hospital stay with IV hydration. Both was explained to you and you expressed understanding and are in agreement. Plan of Treatment: You were admitted with sepsis thought to be secondary to left lower extremity cellulitis. You were treated with vancomycin, cefepime and Flagyl. Upon discharge you were prescribed 2 days worth of doxycycline 100 mg p.o. twice daily. Your Coumadin was continued while you were in the hospital however on the day of discharge your INR was 3.8. You have been instructed not to take your Coumadin on 12/08/20. You have a follow-up appointment with your primary care physician Dr. Elisabet Banks on 12/10/20. It is expected that she will check your INR then as well. You have atrial fibrillation and on metoprolol tartrate at home. However metoprolol tartrate was discontinued and metoprolol succinate 75 mg p.o. twice daily was ordered. You are expected to continue taking this from now on. This will be sent to your pharmacy as well. Your prednisone was resumed. You have chronic lymphedema and bullous pemphigoid. This is managed by her primary care physician. It is expected that she would resume management of this. It is also expected that the home health wound care management of the lower extremities will continue upon discharge. Your creatinine upon discharge was 1.8. At admission it was 2.8. Overall your renal function improved during your hospital stay with IV hydration. Both was explained to you and you expressed understanding and are in agreement. Care Goals: You were admitted with sepsis thought to be secondary to left lower extremity cellulitis. You were treated with vancomycin, cefepime and Flagyl. Upon discharge you were prescribed 2 days worth of doxycycline 100 mg p.o. twice daily. Your Coumadin was continued while you were in the hospital however on the day of discharge your INR was 3.8. You have been instructed not to take your Coumadin on 12/08/20. You have a follow-up appointment with your primary care physician Dr. Elisabet Banks on 12/10/20. It is expected that she will check your INR then as well. You have atrial fibrillation and on metoprolol tartrate at home. However metoprolol tartrate was discontinued and metoprolol succinate 75 mg p.o. twice daily was ordered. You are expected to continue taking this from now on. This will be sent to your pharmacy as well. Your prednisone was resumed. You have chronic lymphedema and bullous pemphigoid. This is managed by her primary care physician. It is expected that she would resume management of this. It is also expected that the home health wound care management of the lower extremities will continue upon discharge. Your creatinine upon discharge was 1.8. At admission it was 2.8. Overall your renal function improved during your hospital stay with IV hydration. Both was explained to you and you expressed understanding and are in agreement. Assessment: You were admitted with sepsis thought to be secondary to left lower extremity cellulitis. You were treated with vancomycin, cefepime and Flagyl. Upon discharge you were prescribed 2 days worth of doxycycline 100 mg p.o. twice daily. Your Coumadin was continued while you were in the hospital however on the day of discharge your INR was 3.8. You have been instructed not to take your Coumadin on 12/08/20. You have a follow-up appointment with your primary care physician Dr. Elisabet Banks on 12/10/20. It is expected that she will check your INR then as well. You have atrial fibrillation and on metoprolol tartrate at home. However metoprolol tartrate was discontinued and metoprolol succinate 75 mg p.o. twice daily was ordered. You are expected to continue taking this from now on. This will be sent to your pharmacy as well. Your prednisone was resumed. You have chronic lymphedema and bullous pemphigoid. This is managed by her primary care physician. It is expected that she would resume management of this. It is also expected that the home health wound care management of the lower extremities will continue upon discharge. Your creatinine upon discharge was 1.8. At admission it was 2.8. Overall your renal function improved during your hospital stay with IV hydration. Both was explained to you and you expressed understanding and are in agreement. No Smoking: If you smoke, Please STOP! Call for help. Follow-up with: Rakan Banks DO [Primary Care Provider] -
[2020-12-08 07:46] LABS: CALCIUM 8.4 mg/dL (8.5-10.3); CREATININE 1.8 mg/dL (0.6-1.2); POTASSIUM 4.1 mmol/L (3.5-5.0)
[2020-12-08 07:48] LABS: BASOPHILS % (AUTO) 0.3 %; EOSINOPHILS # (AUTO) 0.1 10^3/uL (0.0-0.7); EOSINOPHILS % (AUTO) 1.5 %; HCT - HEMATOCRIT 33.1 % (42.0-52.0); HGB - HEMOGLOBIN 11.1 g/dL (14.0-18.0); LYMPHOCYTES # (AUTO) 0.9 10^3/uL (1.5-3.5); LYMPHOCYTES % (AUTO) 10.1 %; MEAN CORPUSCULAR HEMOGLOBIN 31.2 pg (27.0-31.0); MEAN CORPUSCULAR HGB CONC 33.5 g/dL (32.0-36.0); MEAN PLATELET VOLUME 10.7 fL (7.4-11.4); MONOCYTES % (AUTO) 10.6 %; NEUTROPHILS # (AUTO) 6.9 10^3/uL (1.5-6.6); NEUTROPHILS % (AUTO) 75.8 %; PLT - PLATELET COUNT 162 10^3/uL (130-450); RED BLOOD COUNT 3.56 10^6/uL (4.70-6.10); RED CELL DISTRIBUTION WIDTH 16.6 % (12.0-15.0); WHITE BLOOD COUNT 9.1 x10^3/uL (4.8-10.8)
[2020-12-08] MEDS: SACCHAROMYCES BOULARDII 250 MG CAPSULE PO SCH (08:36)
[2020-12-08] MEDS: CHOLECALCIFEROL 25 MCG TABLET PO SCH (08:36)
[2020-12-08] MEDS: FUROSEMIDE 40 MG TABLET PO SCH (08:37)
[2020-12-08] MEDS: predniSONE 10 MG TABLET PO SCH (08:37)
[2020-12-08] MEDS: METOPROLOL SUCCINATE 50 MG TABLET PO SCH (08:37)
[2020-12-08] MEDS: DOXYCYCLINE 100 MG TABLET PO SCH (09:46)
[2020-12-08 13:20] VITALS: BP 174/91
== END 2020-12-08 13:25 | disposition home or self-care (01) | DRG 872 ==
LOC: EDUNIT# → ED 07:35 → MS2 09:19 → ICU 17:45 → MS3 12-05 00:56
PROVIDERS: ADMIT Internal Medicine; ATTEND Internal Medicine
PROC: 02HV33Z Insertion of Infusion Device into Superior Vena Cava, Percutaneous Approach (ICD-10-PCS; principal; 2020-12-02)
DX: A41.9 Sepsis, unspecified organism (principal); L03.116 Cellulitis of left lower limb; N17.9 Acute kidney failure, unspecified; L12.0 Bullous pemphigoid; I48.91 Unspecified atrial fibrillation; I48.21 Permanent atrial fibrillation; R35.0 Frequency of micturition; L97.219 Non-pressure chronic ulcer of right calf with unspecified severity; I12.9 Hypertensive chronic kidney disease with stage 1 through stage 4 chronic kidney disease, or unspecified chronic kidney disease; Z20.822 Contact with and (suspected) exposure to COVID-19; N18.9 Chronic kidney disease, unspecified; E78.5 Hyperlipidemia, unspecified; I89.0 Lymphedema, not elsewhere classified; I73.9 Peripheral vascular disease, unspecified; M06.9 Rheumatoid arthritis, unspecified; M19.90 Unspecified osteoarthritis, unspecified site; H91.90 Unspecified hearing loss, unspecified ear; Z66 Do not resuscitate; Z79.891 Long term (current) use of opiate analgesic; Z79.01 Long term (current) use of anticoagulants; Z79.899 Other long term (current) drug therapy; Z95.0 Presence of cardiac pacemaker; Z96.641 Presence of right artificial hip joint
CPT/HCPCS: 36415; 71045; 80048; 80053; 80202; 82040; 83605; 83690; 85025; 85610; 86140; 87040; 87150; 87631; 93005; 93971; 97116; 97162; 97530; 99285; A9270; J3370; 0202U

== ENCOUNTER 2020-12-26 11:45 | Outpatient (CLI) | payer MEDICARE | END 2020-12-26 11:46 | disposition critical access hospital (66) | LOC: EMS 11:45 | DX: R53.1 Weakness (principal); R60.0 Localized edema | CPT/HCPCS: A0425; A0429 ==

== ENCOUNTER 2020-12-26 12:03 | Emergency (ER) | payer MEDICARE ==
[2020-12-26 12:48] LABS: BASOPHILS # (AUTO) 0.1 10^3/uL (0.0-0.1); BASOPHILS % (AUTO) 0.2 %; HCT - HEMATOCRIT 44.5 % (42.0-52.0); HGB - HEMOGLOBIN 14.7 g/dL (14.0-18.0); LYMPHOCYTES # (AUTO) 0.7 10^3/uL (1.5-3.5); LYMPHOCYTES % (AUTO) 3.4 %; MEAN CORPUSCULAR HEMOGLOBIN 30.6 pg (27.0-31.0); MEAN CORPUSCULAR VOLUME 92.7 fL (80.0-94.0); MEAN PLATELET VOLUME 11.6 fL (7.4-11.4); MONOCYTES # (AUTO) 1.4 10^3/uL (0.0-1.0); MONOCYTES % (AUTO) 6.7 %; NEUTROPHILS # (AUTO) 18.5 10^3/uL (1.5-6.6); NEUTROPHILS % (AUTO) 87.9 %; NRBC ABSOLUTE COUNT (AUTO) 0.26 x10^3/uL; NUCLEATED RED BLOOD CELLS AUTO 1.2 /100WBC; PLT - PLATELET COUNT 213 10^3/uL (130-450); RED CELL DISTRIBUTION WIDTH 16.3 % (12.0-15.0)
[2020-12-26 13:00] LABS: SLIDE REVIEW? Indicated
--- NOTE | 2020-12-26 13:10 | XRAY Report ---
PROCEDURE: Chest 1 View X-Ray INDICATIONS: weakness TECHNIQUE: One view of the chest was acquired. COMPARISON: 12/02/2020 chest plain film imaging. FINDINGS: Surgical changes and devices: Pacemaker appears normal. Lungs and pleura: No pleural effusions or pneumothorax. Lungs are mildly edematous versus interstit ial prominence accentuated by reduced inspiratory volume. Mediastinum: Mediastinal contours appear normal. Heart size is normal. Bones and chest wall: No suspicious bony lesions. Overlying soft tissues appear unremarkable. IMPRESSION: No definite acute disease. There is an interstitial prominence pattern that could represent a slight degree of pulmonary edema but this has not changed from 12/02/2020 and for this reason it is considere d more likely to represent perhaps sequela of prior smoking. Heart size has not enlarged, pacemaker a nd leads appear normal. Reviewed by: Hayden Longo MD on 12/26/2020 1:08 PM PDT Approved by: Hayden Longo MD on 12/26/2020 1:08 PM PDT Station ID: [id number]
[2020-12-26 13:22] LABS: PLATELET ESTIMATE, MANUAL NORMAL (130-450,000) (NORMAL); PLATELET MORPHOLOGY NORMAL APPEARANCE (NORMAL); RBC MORPHOLOGY (MULTIPLE) NORMAL APPEARANCE (NORMAL); WBC MORPHOLOGY (MULTIPLE) NORMAL APPEARANCE (NORMAL)
--- NOTE | 2020-12-26 14:19 | XRAY Report ---
PROCEDURE: Tib/Fib BILAT INDICATIONS: severe lymphedema, WBC 20 TECHNIQUE: 2 views of the tibia and fibula were acquired, on the right and on the left.. COMPARISON: None. FINDINGS: Bones: No fractures or dislocations. No suspicious bony lesions. Soft tissues: No suspicious soft tissue calcifications or masses. IMPRESSION: Edema appears present over the visualized right and left lower extremities, with no gas in the soft t issues and no evidence of foreign body. No underlying osteomyelitis is found. Reviewed by: Hayden Longo MD on 12/26/2020 2:18 PM PDT Approved by: Hayden Longo MD on 12/26/2020 2:18 PM PDT Station ID: [id number]
[2020-12-26 14:37] LABS: ALBUMIN 3.4 g/dL (3.2-5.5); ALBUMIN/GLOBULIN RATIO 1.3 (1.0-2.2); BILIRUBIN,TOTAL 1.1 mg/dL (0.2-1.0); CALCIUM 8.8 mg/dL (8.5-10.3); CREATININE 4.3 mg/dL (0.6-1.2)
[2020-12-26 14:41] LABS: POTASSIUM 6.8 mmol/L (3.5-5.0)
[2020-12-26] MEDS ORDERED: CALCIUM GLUCONATE 1,000 MG in SODIUM CHLORIDE 0.9% 50 ML IV STA (14:44)
[2020-12-26] MEDS ORDERED: DEXTROSE 50% ABBOJECT 25 GM/50 ML SYRINGE IVP STA ×2 (14:46→17:21)
[2020-12-26] MEDS ORDERED: INSULIN REGULAR HUMAN 100 UNIT/1 ML 10 ML MDV IVP STA ×2 (14:46→17:20)
[2020-12-26 15:41] LABS: BILIRUBIN,URINE NEGATIVE (NEGATIVE); GLUCOSE, URINE (UA) NEGATIVE (NEGATIVE); KETONES,URINE (UA) NEGATIVE (NEGATIVE); LEUKOCYTE ESTERASE, URINE NEGATIVE (NEGATIVE); NITRITE,URINE NEGATIVE (NEGATIVE); OCCULT BLOOD,URINE NEGATIVE (NEGATIVE); PROTEIN,URINE NEGATIVE (NEGATIVE); UROBILINOGEN,URINE 0.2 (NORMAL) E.U./dL (NORMAL)
[2020-12-26 15:49] LABS: CLARITY,URINE CLEAR (CLEAR)
--- NOTE | 2020-12-26 16:21 | ED Physician Documentation ---
History of Present Illness - Stated complaint Stated Complaint: WEAKNESS - Chief complaint Chief Complaint: General - History obtained from History obtained from: Patient - Additonal information Additional information: 85-year-old man with past medical history of pacemaker, CHF, A. fib on Coumadin, lymphedema to the bilateral lower extremity presents with worsening weakness progressive over the past month, sent in by home health who sees him 3 days a week for wound care. Patient was mated to the hospital recently for infection of his lymphedema and since discharge has been progressively weakening. Further history limited by patient dementia and uncooperativity. Review of Systems Unable to obtain: Dementia, Uncooperative PD PAST MEDICAL HISTORY - Past Medical History Past Medical History: Yes Cardiovascular: Hypertension, Atrial fibrillation Respiratory: Asthma GI: Other : Renal insuffiency, Frequency HEENT: Chronic hearing loss, Other Psych: None Musculoskeletal: Osteoarthritis, Rheumatoid arthritis Derm: None - Past Surgical History Past Surgical History: Yes Ortho: Carpal Tunnel surgery, Other Cardiovascular: Pacemaker - Present Medications Home Medications: Ambulatory Orders Medication Instructions Recorded Confirmed Cyanocobalamin (Vitamin B-12) 250 mcg PO DAILY 04/26/14 12/26/20 [Vitamin B-12] Atorvastatin Calcium 40 mg PO QPM 10/13/16 12/26/20 Warfarin Sodium [Jantoven] 2.5 mg PO DAILY 10/13/16 12/26/20 Furosemide 40 mg PO DAILY 03/03/20 12/26/20 Potassium Chloride 20 meq PO DAILY 03/07/20 12/26/20 predniSONE [Prednisone] 1 tab PO DAILY 03/07/20 12/26/20 Morphine ER [Morphine Sulfate ER] 15 mg PO BID 12/03/20 12/26/20 Doxycycline Hyclate 100 mg PO BID 2 Days #4 cap 12/07/20 12/26/20 Metoprolol Succinate [Toprol Xl] 75 mg PO BID 30 Days #60 tablet 12/08/20 12/26/20 - Allergies Allergies/Adverse Reactions: Allergies Allergy/AdvReac Type Severity Reaction Status Date / Time No Known Drug Allergies Allergy Verified 12/02/20 07:54 - Social History Does the pt smoke?: No Smoking Status: Never smoker Does the pt drink ETOH?: Yes ETOH Use: Liquor Does the pt have substance abuse?: No - Immunizations Immunizations are current?: Yes - POLST Patient has POLST: No POLST Status: DNR PD ED PE NORMAL - Vitals Vital signs reviewed: Yes - General General: No acute distress, Other (elderly appearing, awake and alert) - HEENT HEENT: Atraumatic, PERRL, EOMI - Neck Neck: Supple, no meningeal sign - Cardiac Cardiac: RRR - Respiratory Respiratory: No respiratory distress, Clear bilaterally - Abdomen Abdomen: Non tender, Non distended, Other (discomfort to suprapubic palpation) - Extremities Extremities: Other (BL LE lymphedema) - Neuro Neuro: No motor deficit, No sensory deficit - Psych Psych: Other (uncoooperative) Results - Vitals Vitals: Vital Signs - 24 hr 12/26/20 12/26/20 12/26/20 12:05 12:27 14:10 Temperature 36.9 C Heart Rate 59 L 61 64 Respiratory 23 96 H 21 Rate Blood Pressure 173/93 H 176/84 H 164/89 H O2 Saturation 99 17 L 99 12/26/20 15:57 Temperature Heart Rate 87 Respiratory 18 Rate Blood Pressure 163/105 H O2 Saturation 100 Oxygen O2 Source Room air - Labs Labs: Laboratory Tests 12/26/20 12/26/20 12/26/20 12:35 13:57 14:12 WBC 21.0 H RBC 4.80 Hgb 14.7 Hct 44.5 MCV 92.7 MCH 30.6 MCHC 33.0 RDW 16.3 H Plt Count 213 MPV 11.6 H Neut # (Auto) 18.5 H Lymph # (Auto) 0.7 L [place] # (Auto) 1.4 H Eos # (Auto) 0.0 Baso # (Auto) 0.1 Absolute Nucleated RBC 0.26 Nucleated RBC % 1.2 Manual Slide Review Indicated WBC Morphology NORMAL APPEARANCE Platelet Estimate NORMAL (130-450,000) Platelet Morphology NORMAL APPEARANCE RBC Morph Micro Appear NORMAL APPEARANCE Sodium 138 Potassium 6.8 H* Chloride 104 Carbon Dioxide 21 Anion Gap 13.0 BUN 128 H* Creatinine 4.3 H Estimated GFR (MDRD) 13 L Glucose 110 H Lactic Acid 2.9 H Calcium 8.8 Total Bilirubin 1.1 H AST 28 ALT 28 Alkaline Phosphatase 68 Total Protein 6.0 L Albumin 3.4 Globulin 2.6 Albumin/Globulin Ratio 1.3 Lipase 62 H Urine Color Urine Clarity Urine pH Ur Specific [place] Urine Protein Urine Glucose (UA) Urine Ketones Urine Occult Blood Urine Nitrite Urine Bilirubin Urine Urobilinogen Ur Leukocyte Esterase Ur Microscopic Review Urine Culture Comments Nasal Adenovirus (PCR) Nasal B. parapertussis DNA (PCR) Nasal Coronavir 229E PCR Nasal Coronavir HKU1 PCR Nasal Coronavir NL63 PCR Nasal Coronavir OC43 PCR Nasal Enterovir/Rhinovir PCR Nasal Influenza B PCR Nasal Influenza A PCR Nasal Parainfluen 1 PCR Nasal Parainfluen 2 PCR Nasal Parainfluen 3 PCR Nasal Parainfluen 4 PCR Nasal RSV (PCR) Nasal B.pertussis DNA PCR Nasal C.pneumoniae (PCR) Viktor Human Metapneumo PCR Nasal M.pneumoniae (PCR) Nasal SARS-CoV-2 (PCR) 12/26/20 12/26/20 12/26/20 15:00 15:20 16:10 WBC RBC Hgb Hct MCV MCH MCHC RDW Plt Count MPV Neut # (Auto) Lymph # (Auto) [place] # (Auto) Eos # (Auto) Baso # (Auto) Absolute Nucleated RBC Nucleated RBC % Manual Slide Review WBC Morphology Platelet Estimate Platelet Morphology RBC Morph Micro Appear Sodium 141 Potassium 6.7 H* Chloride 109 Carbon Dioxide 21 Anion Gap 11.0 BUN 126 H* Creatinine 4.3 H Estimated GFR (MDRD) 13 L Glucose 125 H Lactic Acid Calcium 8.9 Total Bilirubin AST ALT Alkaline Phosphatase Total Protein Albumin Globulin Albumin/Globulin Ratio Lipase Urine Color YELLOW Urine Clarity CLEAR Urine pH 5.0 Ur Specific [place] 1.025 Urine Protein NEGATIVE Urine Glucose (UA) NEGATIVE Urine Ketones NEGATIVE Urine Occult Blood NEGATIVE Urine Nitrite NEGATIVE Urine Bilirubin NEGATIVE Urine Urobilinogen 0.2 (NORMAL) Ur Leukocyte Esterase NEGATIVE Ur Microscopic Review NOT INDICATED Urine Culture Comments NOT INDICATED Nasal Adenovirus (PCR) NOT DETECTED Nasal B. parapertussis DNA (PCR) NOT DETECTED Nasal Coronavir 229E PCR NOT DETECTED Nasal Coronavir HKU1 PCR NOT DETECTED Nasal Coronavir NL63 PCR NOT DETECTED Nasal Coronavir OC43 PCR NOT DETECTED Nasal Enterovir/Rhinovir PCR DETECTED A Nasal Influenza B PCR NOT DETECTED Nasal Influenza A PCR NOT DETECTED Nasal Parainfluen 1 PCR NOT DETECTED Nasal Parainfluen 2 PCR NOT DETECTED Nasal Parainfluen 3 PCR NOT DETECTED Nasal Parainfluen 4 PCR NOT DETECTED Nasal RSV (PCR) NOT DETECTED Nasal B.pertussis DNA PCR NOT DETECTED Nasal C.pneumoniae (PCR) NOT DETECTED Viktor Human Metapneumo PCR NOT DETECTED Nasal M.pneumoniae (PCR) NOT DETECTED Nasal SARS-CoV-2 (PCR) NOT DETECTED PD MEDICAL DECISION MAKING - ED course ED course: 85-year-old man presents with severe LAVINIA, hyperkalemia with ekg changes. will admit [place]. d/w market sales manager Dr. mindy saul and hospitalist Dr. Chen. Abdi given for LE cellulitis. Departure - Departure Disposition: 02 Transfer Acute Care Hosp Clinical Impression: Lymphedema, Hyperkalemia, LAVINIA (acute kidney injury), Cellulitis
[2020-12-26] MEDS ORDERED: SODIUM BICARBONATE ABBOJECT 50 MEQ/50 ML SYRINGE IVP STA (16:25)
[2020-12-26] MEDS ORDERED: LACTATED RINGERS 1,000 ML IV STA (16:27)
[2020-12-26 16:47] LABS: CALCIUM 8.9 mg/dL (8.5-10.3); CREATININE 4.3 mg/dL (0.6-1.2)
--- NOTE | 2020-12-26 16:47 | CT Report ---
PROCEDURE: Abdomen/Pelvis WO INDICATIONS: kayce, r/o obstruction TECHNIQUE: Noncontrast 5 mm thick sections acquired from the diaphragms to the symphysis. 5 mm coronal and sagi ttal reformats were then performed. For radiation dose reduction, the following was used: automated exposure control, adjustment of mA and/or kV according to patient size. COMPARISON: None. FINDINGS: Image quality: Excellent. ABDOMEN: Lung bases: Lung bases are clear. Heart size is normal. Solid organs: Liver and spleen are normal in size. Gallbladder appears normal Pancreas is normal i n contours. No adrenal nodules. Kidneys are normal in size, without hydronephrosis or nephrolithias is. Note is made of a moderately large exophytic right renal cortical cyst measuring up to 4.5 cm diaz ving internal water density and no sign of complexity. Several additional smaller renal cysts appear present, which would require CT scanning for further characterization if clinically desired. Peritoneum and bowel: Unenhanced bowel loops demonstrate normal wall thickness and caliber. No free fluid or air. Nodes and vessels: No retroperitoneal or mesenteric adenopathy by size criteria. Aorta and inferior vena cava are normal in caliber. Miscellaneous: No ventral hernias. PELVIS: Genitourinary: Bladder wall thickness is normal. Quality of visualization of the bladder is somewha t limited by streak artifact from dense metal right total hip arthroplasty. Miscellaneous: No inguinal hernias or adenopathy. Bones: No suspicious bony lesions. No vertebral body compression fractures. IMPRESSION: No hydronephrosis or nephrolithiasis found. Moderately large right renal cortical cyst, water density and simple in appearance. Partial visualization of the bladder, which does not appear distended. Met al artifact from the right total hip arthroplasty precludes accurate assessment of the bladder. This could be assessed by dedicated bladder ultrasound if clinically desired. Reviewed by: Hayden Longo MD on 12/26/2020 4:45 PM PDT Approved by: Hayden Longo MD on 12/26/2020 4:45 PM PDT Station ID: [id number]
[2020-12-26 16:50] LABS: POTASSIUM 6.7 mmol/L (3.5-5.0)
[2020-12-26] MEDS ORDERED: IPRATROPIUM/ALBUTEROL 3 ML NEB INH STA (16:51)
[2020-12-26 17:03] LABS: B. PARAPERTUSSIS- RESP PCR PAN NOT DETECTED; B. PERTUSSIS- RESP PCR PANEL NOT DETECTED; C. PNEUMONIAE- RESP PCR PANEL NOT DETECTED; CORONAVIRUS 229E-RESP PCR NOT DETECTED; CORONAVIRUS HKU1-RESP PCR NOT DETECTED; CORONAVIRUS NL63-RESP PCR NOT DETECTED; CORONAVIRUS OC43-RESP PCR NOT DETECTED; HUMAN METAPNEUMOVIRUS NOT DETECTED; INFLUENZA A- RESP PCR PANEL NOT DETECTED; INFLUENZA B - RESP PCR PANEL NOT DETECTED; M. PNEUMONIAE- RESP PCR PANEL NOT DETECTED; PARAINFLUENZA VIRUS 1 NOT DETECTED; PARAINFLUENZA VIRUS 2 NOT DETECTED; PARAINFLUENZA VIRUS 3 NOT DETECTED; PARAINFLUENZA VIRUS 4 NOT DETECTED; RHINOVIRUS/ENTEROVIRUS DETECTED; RSV- RESP PCR PANEL NOT DETECTED; SARS-CoV-2 -RESP PCR PANEL NOT DETECTED
[2020-12-26] MEDS ORDERED: ALBUTEROL NEB 2.5 MG/3 ML INH ONE (17:18)
[2020-12-26] MEDS ORDERED: CALCIUM GLUCONATE 1000 MG/10 ML VIAL IVP STA (17:20)
[2020-12-26] MEDS ORDERED: cefTRIAXone 1 GM in SODIUM CHLORIDE 0.9% MINIBAG 100 ML IV STA (17:21)
[2020-12-26] MEDS ORDERED: ALBUTEROL NEB 2.5 MG/3 ML INH STA (17:28)
[2020-12-26 18:13] VITALS: BP 183/99
== END 2020-12-26 18:05 | disposition short-term general hospital (02) ==
LOC: EDUNIT# → ED 12:03
DX: N17.9 Acute kidney failure, unspecified (principal); E87.5 Hyperkalemia; I89.0 Lymphedema, not elsewhere classified; L03.119 Cellulitis of unspecified part of limb; I11.0 Hypertensive heart disease with heart failure; I50.9 Heart failure, unspecified; I48.91 Unspecified atrial fibrillation; Z79.01 Long term (current) use of anticoagulants; Z95.0 Presence of cardiac pacemaker; F03.90 Unspecified dementia, unspecified severity, without behavioral disturbance, psychotic disturbance, mood disturbance, and anxiety; Z20.822 Contact with and (suspected) exposure to COVID-19; Z66 Do not resuscitate
CPT/HCPCS: 36415; 71045; 73590; 74176; 80048; 80053; 81003; 83605; 83690; 85025; 87040; 87631; 93005; 94640; 96365; 96366; 96368; 96375; 96376; 99281; 99285; J1815; J7040; J7120; 0202U; 81001; 87086

== ENCOUNTER 2021-01-05 14:24 | Outpatient (CLI) | payer MEDICARE | END 2021-01-05 14:25 | disposition short-term general hospital (02) | LOC: EMS 14:24 | DX: R55 Syncope and collapse (principal) | CPT/HCPCS: A0425; A0429 ==

== ENCOUNTER 2021-01-10 19:53 | Outpatient (CLI) | payer MEDICARE | END 2021-01-10 19:54 | disposition critical access hospital (66) | LOC: EMS 19:53 | DX: R40.4 Transient alteration of awareness (principal) | CPT/HCPCS: A0425; A0427 ==

== ENCOUNTER 2021-01-10 19:57 | Emergency (ER) | payer MEDICARE ==
--- NOTE | 2021-01-10 20:04 | ED Physician Documentation ---
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 Patient is a new resident there as of 2 days ago. He has medication written as PRN for pain that includes morphine and oxycodone. He was given doses of these medications earlier tonight. Staff at [facility] called 911 when they found patient unconscious and unresponsive. EMS arrived to find patient unconscious and unresponsive with pinpoint pupils, RR 16. EMS could not get reliable pulse ox but easily palpable pulse. Given 1mg IV narcan with rapid return to baseline mental status. Patient is on coumadin for atrial fibrillation Review of Systems Unable to obtain: Confused PD PAST MEDICAL HISTORY - Past Medical History Past Medical History: Yes Cardiovascular: Congestive heart failure, High cholesterol, Atrial fibrillation Derm: Other (bullous pemphigus) - Present Medications Home Medications: Ambulatory Orders Medication Instructions Recorded Confirmed Cyanocobalamin (Vitamin B-12) 100 mcg PO DAILY 04/26/14 01/10/21 [Vitamin B-12] Atorvastatin Calcium 40 mg PO QPM 10/13/16 01/10/21 Warfarin Sodium [Jantoven] 2.5 mg PO DAILY 10/13/16 01/10/21 Furosemide 20 mg PO BID 03/03/20 01/10/21 Potassium Chloride 20 meq PO DAILY 03/07/20 01/10/21 predniSONE [Prednisone] 1 tab PO DAILY 03/07/20 01/10/21 Morphine ER [Morphine Sulfate ER] 15 mg PO BID PRN 12/03/20 01/10/21 Doxycycline Hyclate 100 mg PO BID 2 Days #4 cap 12/07/20 01/10/21 Metoprolol Succinate [Toprol Xl] 75 mg PO BID 30 Days #60 tablet 12/08/20 01/10/21 Acetaminophen [Aphen] 620 mg PO Q4HR PRN 01/10/21 01/10/21 Amlodipine Besylate [Norvasc] 2.5 mg PO HS 01/10/21 01/10/21 Bisacodyl Supp [Dulcolax Supp] 10 mg PO DAILY PRN 01/10/21 01/10/21 Famotidine [Acid-Pep] 20 mg PO DAILY 01/10/21 01/10/21 Lisinopril [Zestril] 20 mg PO DAILY 01/10/21 01/10/21 Mineral Oil [Mineral Oil Enema] 1 bottle [place] DAILY PRN 01/10/21 01/10/21 Oxycodone HCl [Roxicodone] 5 mg PO Q4HR PRN 01/10/21 01/10/21 Senna [Senokot] 8.6 mg PO BID 01/10/21 01/10/21 allopurinoL [Zyloprim] 100 mg PO DAILY 01/10/21 01/10/21 polyethylene glycoL 3350 [Miralax] 17 gm PO DAILY PRN 01/10/21 01/10/21 - Allergies Allergies/Adverse Reactions: Allergies Allergy/AdvReac Type Severity Reaction Status Date / Time No Known Drug Allergies Allergy Verified 01/10/21 20:10 - Living Situation Living Arrangement: reports: [facility] PD ED PE NORMAL - Vitals Vital signs reviewed: Yes - General General: No acute distress, Well developed/nourished, Other (awake, alert, confused) - HEENT HEENT: Atraumatic, PERRL, EOMI, Moist mucous membranes - Neck Neck: Supple, no meningeal sign, No bony TTP - Cardiac Cardiac: RRR - Respiratory Respiratory: No respiratory distress, Clear bilaterally - Abdomen Abdomen: Soft, Non tender - Neuro Eye Opening: Spontaneous Motor: Obeys Commands Verbal: Confused GCS Score: 14 Results - Vitals Vitals: Vital Signs - 24 hr 01/10/21 01/10/21 20:05 22:35 Temperature 35.7 C L Heart Rate 83 60 Respiratory 32 H 14 Rate Blood Pressure 116/103 H 116/100 H O2 Saturation 100 100 Oxygen O2 Source Room air - Labs Labs: Laboratory Tests 01/10/21 01/10/21 01/10/21 20:16 20:16 20:16 WBC 12.4 H RBC 3.59 L Hgb 11.2 L Hct 34.9 L MCV 97.2 H MCH 31.2 H MCHC 32.1 RDW 16.2 H Plt Count 142 MPV 11.0 Neut # (Auto) 11.3 H Lymph # (Auto) 0.5 L [place] # (Auto) 0.4 Eos # (Auto) 0.0 Baso # (Auto) 0.0 Absolute Nucleated RBC 0.00 Nucleated RBC % 0.0 PT 39.6 H INR 3.9 H APTT 31.1 Sodium 139 Potassium 5.1 H Chloride 109 Carbon Dioxide 22 Anion Gap 8.0 BUN 72 H Creatinine 2.5 H Estimated GFR (MDRD) 25 L Glucose 136 H Calcium 8.4 L Total Bilirubin 1.1 H AST 21 ALT 31 Alkaline Phosphatase 60 Total Protein 4.8 L Albumin 2.7 L Globulin 2.0 L Albumin/Globulin Ratio 1.3 Lipase 30 - Rads (name of study) CT head Radiology: Prelim report reviewed, See rad report PD MEDICAL DECISION MAKING - ED course Complexity details: reviewed old records, reviewed results, re-evaluated patient, considered differential ED course: patient recently evaluated in this ED and found to have LAVINIA with hyperkalemia, transferred to [facility]. He was subsequently discharged to [facility] days ago. Amongst his medication orders are morphine and oxycodone. Per EMS report, patient was c/o pain earlier this evening and received doses of both of these medications, subsequently found unconscious and unresponsive with pinpoint pupils but rapidly returned to baseline when given IV narcan by medics. HPI is s/o accidental opiate overdose and tonight's test results do not suggest an alternative diagnosis. Departure - Departure Disposition: 01 Home, Self Care Clinical Impression: Opiate overdose Qualifiers: Encounter type: initial encounter Injury intent: accidental or unintentional Qualified Code(s): T40.601A - Poisoning by unspecified narcotics, accidental (unintentional), initial encounter Condition: Stable Instructions: ED Overdose Accidental Follow-Up: Rakan Banks DO [Primary Care Provider] - Discharge Date/Time: 01/10/21 22:39
--- OUTSIDE RECORDS SUMMARY | 2021-01-10 20:05 | EXTERNAL MEDICAL SUMMARY RPT | Continuity of Care Document ---
: Demographics Phone Unavailable Preferred Language Salvadorean Marital Status Unknown Shinto Affiliation Unknown Race Unknown Ethnic Group Unknown Author Organization [place] Address [address] [place] [address] Phone Care Team Providers Name Role Phone Rakan Banks Unavailable Unavailable Medications date description facility [id number] Morphine Sulfate 15 MG Oral [facility]t [facility] [id number] Metoprolol Tartrate 25 MG Oral Tablet [facility] [id number] Lisinopril 20 MG Oral Tablet [facility] 12359026 Furosemide 40 MG Oral Tablet [facility] 73065410 Amlodipine 5 MG Oral Tablet [facility] 56508242 Allopurinol 100 MG Oral Tablet [facility] 12602251 Calcium Carbonate 1250 MG / Cholecalcif myron 125 UNT [facility] Oral Tablet 65337338 Famotidine 20 MG Oral Tablet [facility] 82728870 Amlodipine 2.5 MG Oral Tablet [facility] 23024551 Allopurinol 100 MG Oral Tablet [facility] Problems date description facility [id number] Syncope and collapse [facility] [id number] Dizziness and giddiness [facility] Procedures date description facility [id number] General Physician [facility] [id number] Finding [facility] [id number] Diagnosis [facility] Vital Signs date measurement value source [id number] weight_standard 224.98 lb [id number] weight_metric 102.05 kg 22079697 temperature_standard 97.6 F 62058785 temperature_metric 36.44 C 73125565 respiration_rate 17 /min 02047386 height_standard 66 in 99432803 height_metric 167.64 cm [id number] heart_rate 83 /min 62761965 BP_systolic 127 mm[Hg] 62296242 BP_diastolic 69 mm[Hg] 47419813 BMI 36.3 kg/m2 87471974 weight_standard 201.28 lb 13429184 weight_metric 91.3 kg 90674185 temperature_standard 96.7 F 67769538 temperature_metric 35.94 C 10266548 respiration_rate 18 /min 18186816 heart_rate 88 /min 45471053 BP_systolic 100 mm[Hg] 17806751 BP_diastolic 55 mm[Hg]
[2021-01-10 20:21] LABS: BASOPHILS % (AUTO) 0.1 %; EOSINOPHILS % (AUTO) 0.1 %; HCT - HEMATOCRIT 34.9 % (42.0-52.0); HGB - HEMOGLOBIN 11.2 g/dL (14.0-18.0); LYMPHOCYTES # (AUTO) 0.5 10^3/uL (1.5-3.5); LYMPHOCYTES % (AUTO) 4.2 %; MEAN CORPUSCULAR HEMOGLOBIN 31.2 pg (27.0-31.0); MEAN CORPUSCULAR HGB CONC 32.1 g/dL (32.0-36.0); MEAN CORPUSCULAR VOLUME 97.2 fL (80.0-94.0); MONOCYTES # (AUTO) 0.4 10^3/uL (0.0-1.0); MONOCYTES % (AUTO) 3.3 %; NEUTROPHILS # (AUTO) 11.3 10^3/uL (1.5-6.6); NEUTROPHILS % (AUTO) 91.2 %; PLT - PLATELET COUNT 142 10^3/uL (130-450); RED BLOOD COUNT 3.59 10^6/uL (4.70-6.10); RED CELL DISTRIBUTION WIDTH 16.2 % (12.0-15.0); WHITE BLOOD COUNT 12.4 x10^3/uL (4.8-10.8)
[2021-01-10 20:27] LABS: INR 3.9 (0.8-1.2); PT - PROTHROMBIN TIME 39.6 secs (9.9-12.6)
[2021-01-10 20:34] LABS: ALBUMIN 2.7 g/dL (3.2-5.5); ALBUMIN/GLOBULIN RATIO 1.3 (1.0-2.2); BILIRUBIN,TOTAL 1.1 mg/dL (0.2-1.0); CALCIUM 8.4 mg/dL (8.5-10.3); CREATININE 2.5 mg/dL (0.6-1.2); PARTIAL THROMBOPLASTIN TIME 31.1 secs (24.9-33.3); POTASSIUM 5.1 mmol/L (3.5-5.0); TOTAL PROTEIN 4.8 g/dL (6.7-8.2)
--- NOTE | 2021-01-10 21:26 | CT Report ---
PROCEDURE: HEAD WO INDICATIONS: AMS TECHNIQUE: Noncontrast 4.5 mm thick angled axial sections acquired from the foramen magnum to the vertex. For r adiation dose reduction, the following was used: automated exposure control, adjustment of mA and/or kV according to patient size. COMPARISON: None. FINDINGS: Image quality: Excellent. CSF spaces: Basal cisterns are patent. No extra-axial fluid collections. There is moderate cerebral volume loss with prominence of the ventricles and sulci. Brain: No intracranial hemorrhage, mass, or mass effect. Melissa-white matter interface is preserved. There are periventricular white matter hypodensities consistent with mild chronic small vessel ischem ic changes. Skull and face: Calvarium and visualized facial bones are intact, without suspicious lesions. Sinuses: Visualized sinuses and mastoids are clear. IMPRESSION: 1. No acute intra-abdominal abnormality. 2. Moderate cerebral volume loss and mild chronic small vessel ischemic changes. Reviewed by: Francesco Richardson MD on 01/10/2021 9:25 PM PDT Approved by: Francesco Richardson MD on 01/10/2021 9:25 PM PDT Station ID: [id number]
[2021-01-10 22:36] VITALS: BP 116/100
== END 2021-01-10 22:39 | disposition home or self-care (01) ==
LOC: EDBD → EDUNIT# → SUPCPDRO 19:57 → ED 19:57
DX: T40.601A Poisoning by unspecified narcotics, accidental (unintentional), initial encounter (principal); I48.91 Unspecified atrial fibrillation; Z79.01 Long term (current) use of anticoagulants
CPT/HCPCS: 36415; 80053; 83690; 85025; 85610; 85730; 99281; 99284

== ENCOUNTER 2021-01-10 22:55 | Outpatient (CLI) | payer MEDICARE | END 2021-01-10 22:56 | disposition home or self-care (01) | LOC: EMS 22:55 | PROVIDERS: ATTEND Emergency Medicine | DX: I89.0 Lymphedema, not elsewhere classified (principal); Z74.01 Bed confinement status | CPT/HCPCS: A0425; A0429 ==

== ENCOUNTER 2021-01-11 15:47 | Outpatient (CLI) | payer MEDICARE | END 2021-01-11 15:48 | disposition EMS.NT | LOC: EMS 15:47 | DX: R07.89 Other chest pain (principal) ==

== ENCOUNTER 2021-01-13 10:50 | Outpatient (CLI) | payer MEDICARE | END 2021-01-13 10:51 | disposition critical access hospital (66) | LOC: EMS 10:50 | DX: R40.4 Transient alteration of awareness (principal) | CPT/HCPCS: A0425; A0429 ==

== ENCOUNTER 2021-01-13 10:55 | Emergency (ER) | payer MEDICARE ==
--- NOTE | 2021-01-13 11:07 | ED Physician Documentation ---
History of Present Illness - Stated complaint Stated Complaint: SYNCOPAL - History obtained from History obtained from: Patient - Additonal information Additional information: 85-year-old man with history of CHF, pacemaker, CKD, recently admitted to [facility] a few days ago from [facility], presents with sudden loss of consciousness while on a bedpan and unresponsiveness for about 5 minutes until EMS arrived. They report that he woke up with a sternal rub and was AO x4 on scene. He was mildly hypertensive on the way to the hospital 90/ however his vital signs were otherwise normal. Patient has no complaints now, denies passing out, and would like to go home. Please note that patient was seen a couple days prior after [facility] mistakenly gave him 2 different pain medications at the same time, prompting a similar unresponsive episode. Review of Systems Ten Systems: 10 systems reviewed and negative Constitutional: denies: Fever, Chills Cardiac: denies: Chest pain / pressure, Palpitations Respiratory: denies: Dyspnea GI: denies: Abdominal Pain, Nausea Neurologic: reports: Other (unresponsive episode reported by staff at [facility]) PD PAST MEDICAL HISTORY - Past Medical History Cardiovascular: Congestive heart failure, High cholesterol, Atrial fibrillation Respiratory: Asthma GI: Other : Renal insuffiency, Frequency HEENT: Chronic vision loss, Chronic hearing loss, Other Psych: None Musculoskeletal: Osteoarthritis, Rheumatoid arthritis Derm: Other (bullous pemphigus) - Past Surgical History Past Surgical History: Yes Ortho: Carpal Tunnel surgery, Other Cardiovascular: Pacemaker - Present Medications Home Medications: Ambulatory Orders Medication Instructions Recorded Confirmed Cyanocobalamin (Vitamin B-12) 100 mcg PO DAILY 04/26/14 01/13/21 [Vitamin B-12] Atorvastatin Calcium 40 mg PO QPM 10/13/16 01/13/21 Warfarin Sodium [Jantoven] 2.5 mg PO DAILY 10/13/16 01/13/21 Furosemide 20 mg PO BID 03/03/20 01/13/21 Potassium Chloride 20 meq PO DAILY 03/07/20 01/13/21 predniSONE [Prednisone] 1 tab PO DAILY 03/07/20 01/13/21 Morphine ER [Morphine Sulfate ER] 15 mg PO BID PRN 12/03/20 01/13/21 Doxycycline Hyclate 100 mg PO BID 2 Days #4 cap 12/07/20 01/13/21 Metoprolol Succinate [Toprol Xl] 75 mg PO BID 30 Days #60 tablet 12/08/20 01/13/21 Acetaminophen [Aphen] 620 mg PO Q4HR PRN 01/10/21 01/13/21 Amlodipine Besylate [Norvasc] 2.5 mg PO HS 01/10/21 01/13/21 Bisacodyl Supp [Dulcolax Supp] 10 mg PO DAILY PRN 01/10/21 01/13/21 Famotidine [Acid-Pep] 20 mg PO DAILY 01/10/21 01/13/21 Lisinopril [Zestril] 20 mg PO DAILY 01/10/21 01/13/21 Mineral Oil [Mineral Oil Enema] 1 bottle [place] DAILY PRN 01/10/21 01/13/21 Oxycodone HCl [Roxicodone] 5 mg PO Q4HR PRN 01/10/21 01/13/21 Senna [Senokot] 8.6 mg PO BID 01/10/21 01/13/21 allopurinoL [Zyloprim] 100 mg PO DAILY 01/10/21 01/13/21 polyethylene glycoL 3350 [Miralax] 17 gm PO DAILY PRN 01/10/21 01/13/21 - Allergies Allergies/Adverse Reactions: Allergies Allergy/AdvReac Type Severity Reaction Status Date / Time No Known Drug Allergies Allergy Verified 01/13/21 11:08 - Social History Does the pt smoke?: No Smoking Status: Never smoker Does the pt drink ETOH?: Yes Does the pt have substance abuse?: No - Immunizations Immunizations are current?: Yes - POLST Patient has POLST: No POLST Status: DNR PD ED PE NORMAL - Vitals Vital signs reviewed: Yes - General General: Alert and oriented X 3, No acute distress - HEENT HEENT: Atraumatic, PERRL, EOMI - Neck Neck: Supple, no meningeal sign - Cardiac Cardiac: RRR - Respiratory Respiratory: No respiratory distress, Clear bilaterally - Abdomen Abdomen: Non tender, Non distended - Derm Derm: Normal color, Warm and dry - Extremities Extremities: No deformity - Neuro Neuro: Alert and oriented X 3 - Psych Psych: Normal mood, Normal affect Results - Vitals Vitals: Vital Signs - 24 hr 01/13/21 01/13/21 01/13/21 11:03 11:39 12:37 Temperature 36.2 C L Heart Rate 68 75 Heart Rate [ 80 Sitting] Heart Rate [ 78 Supine] Respiratory 10 L 10 L Rate Blood Pressure 121/85 H 106/61 Blood Pressure 91/63 [Sitting] Blood Pressure 127/84 H [Supine] O2 Saturation 94 100 01/13/21 13:08 Temperature Heart Rate 79 Heart Rate [ Sitting] Heart Rate [ Supine] Respiratory 10 L Rate Blood Pressure 110/85 H Blood Pressure [Sitting] Blood Pressure [Supine] O2 Saturation 98 Oxygen O2 Source Room air - EKG (time done) 1103 Rate: Rate (enter#) (79) Rhythm: Atrial flutter, Atrial fibrillation, Other (v-paced complex) - Labs Labs: Laboratory Tests 01/13/21 01/13/21 01/13/21 11:25 11:25 11:25 WBC 9.5 RBC 3.43 L Hgb 10.6 L Hct 33.4 L MCV 97.4 H MCH 30.9 MCHC 31.7 L RDW 16.2 H Plt Count 166 MPV 10.8 Neut # (Auto) 7.8 H Lymph # (Auto) 0.8 L [place] # (Auto) 0.6 Eos # (Auto) 0.2 Baso # (Auto) 0.0 Absolute Nucleated RBC 0.03 Nucleated RBC % 0.3 PT INR APTT Sodium 140 Potassium 4.8 Chloride 107 Carbon Dioxide 23 Anion Gap 10.0 BUN 99 H* Creatinine 2.5 H Estimated GFR (MDRD) 25 L Glucose 106 H Calcium 8.2 L Total Bilirubin 1.0 AST 23 ALT 25 Alkaline Phosphatase 54 Troponin I High Sens 40.1 H* Total Protein 4.8 L Albumin 2.6 L Globulin 2.2 Albumin/Globulin Ratio 1.2 Lipase 97 H Stl Occult Blood (IFOB) 01/13/21 01/13/21 01/13/21 11:25 13:08 13:28 WBC RBC Hgb Hct MCV MCH MCHC RDW Plt Count MPV Neut # (Auto) Lymph # (Auto) [place] # (Auto) Eos # (Auto) Baso # (Auto) Absolute Nucleated RBC Nucleated RBC % PT 41.0 H INR 4.0 H APTT 33.8 H Sodium Potassium Chloride Carbon Dioxide Anion Gap BUN Creatinine Estimated GFR (MDRD) Glucose Calcium Total Bilirubin AST ALT Alkaline Phosphatase Troponin I High Sens 39.2 H* Total Protein Albumin Globulin Albumin/Globulin Ratio Lipase Stl Occult Blood (IFOB) NEGATIVE PD MEDICAL DECISION MAKING - ED course ED course: patient with moderate aortic stenosis on echo from [facility] last week. EF60-65%. He became lightheaded with orthostatic vital signs and also had elevated BUN: d/w Gunjan RN - Patient was given 15mg oral morphine at 8am, then was on bedpan around 10am and had a bowel movement and the aide said he was unresponsive. RN was unable to wake him with sternal rub so EMS was called, then he was easily arousable with ems. Patient asymptomatic during his ED stay. will dc back to [facility] and mirtha/w Gunjan that his morphine dose will need to be adjusted by his primary doctor. Departure - Departure Disposition: 01 Home, Self Care Clinical Impression: Decreased responsiveness Condition: Good Comments: Mr. Warner was seen in the emergency department for medical screening evaluation after he was found to be unresponsive this morning. It is likely that he needs to have his medications adjusted, since he received a large dose of oral morphine a couple hours prior to this episode. His work-up in the emergency department did not show any emergent findings. Please call the distribution lead physician prior to administration of pain medicine this evening to confirm dose, and make sure that you do not give two different narcotic pain medications at the same time. Consider giving a lower dose of morphine and then redosing as needed. Please also make sure that he stays well hydrated. He should return to the emergency department if he has any new or worsening symptoms or if you have other concerns.
[2021-01-13 11:38] LABS: BASOPHILS % (AUTO) 0.3 %; EOSINOPHILS # (AUTO) 0.2 10^3/uL (0.0-0.7); EOSINOPHILS % (AUTO) 2.3 %; HCT - HEMATOCRIT 33.4 % (42.0-52.0); HGB - HEMOGLOBIN 10.6 g/dL (14.0-18.0); LYMPHOCYTES # (AUTO) 0.8 10^3/uL (1.5-3.5); LYMPHOCYTES % (AUTO) 8.3 %; MEAN CORPUSCULAR HEMOGLOBIN 30.9 pg (27.0-31.0); MEAN CORPUSCULAR HGB CONC 31.7 g/dL (32.0-36.0); MEAN CORPUSCULAR VOLUME 97.4 fL (80.0-94.0); MEAN PLATELET VOLUME 10.8 fL (7.4-11.4); MONOCYTES # (AUTO) 0.6 10^3/uL (0.0-1.0); MONOCYTES % (AUTO) 6.6 %; NEUTROPHILS # (AUTO) 7.8 10^3/uL (1.5-6.6); NEUTROPHILS % (AUTO) 81.8 %; NRBC ABSOLUTE COUNT (AUTO) 0.03 x10^3/uL; NUCLEATED RED BLOOD CELLS AUTO 0.3 /100WBC; PLT - PLATELET COUNT 166 10^3/uL (130-450); RED BLOOD COUNT 3.43 10^6/uL (4.70-6.10); RED CELL DISTRIBUTION WIDTH 16.2 % (12.0-15.0); WHITE BLOOD COUNT 9.5 x10^3/uL (4.8-10.8)
--- NOTE | 2021-01-13 11:52 | XRAY Report ---
PROCEDURE: Chest 1 View X-Ray INDICATIONS: Chest Pain TECHNIQUE: One view of the chest was acquired. COMPARISON: 12/26/2020, 12/02/2020. FINDINGS: Surgical changes and devices: A single visualize is seen, with the lead in stable position.. Lungs and pleura: No pleural effusions or pneumothorax. Lungs are clear. Mediastinum: Mediastinal contours appear normal. Heart size is normal. Calcification is seen of th e aortic arch. Bones and chest wall: No suspicious bony lesions. Age-appropriate degenerative changes are seen. O verlying soft tissues appear unremarkable. IMPRESSION: Stable portable chest, without acute abnormality. Reviewed by: Benigno Oneill MD on 01/13/2021 10:50 AM ELYSE Approved by: Benigno Oneill MD on 01/13/2021 10:50 AM ELYSE Station ID: [id number]
[2021-01-13 11:53] LABS: PARTIAL THROMBOPLASTIN TIME 33.8 secs (24.9-33.3)
--- OUTSIDE RECORDS SUMMARY | 2021-01-13 12:02 | EXTERNAL MEDICAL SUMMARY RPT | Continuity of Care Document ---
: Demographics Phone Unavailable Preferred Language Canadian Marital Status Unknown Anabaptist Affiliation Unknown Race Unknown Ethnic Group Unknown Author Organization [place] Address [address] [place] [address] Phone Care Team Providers Name Role Phone Rakan Banks Unavailable Unavailable Medications date description facility [id number] Morphine Sulfate 15 MG Oral Tablet [facility] 17023044 Metoprolol Tartrate 25 MG Oral Tablet [facility] 97096632 Lisinopril 20 MG Oral Tablet [facility] 36611020 Furosemide 40 MG Oral Tablet [facility] 47145099 Amlodipine 5 MG Oral Tablet [facility] p[facility] 67896998 Allopurinol 100 MG Oral Tablet [facility] 21860118 Calcium Carbonate 1250 MG / Cholecalcif myron 125 UNT [facility] Oral Tablet 98953973 Famotidine 20 MG Oral Tablet [facility] 73068045 Amlodipine 2.5 MG Oral Tablet [facility] 88621498 Allopurinol 100 MG Oral Tablet [facility] Problems date description facility [id number] Syncope and collapse [facility] 44598024 Dizziness and giddiness [facility] Procedures date description facility [id number] General Physician [facility] [id number] Finding [facility] [id number] Diagnosis [facility] Vital Signs date measurement value source 72665543 weight_standard 224.98 lb 02292281 weight_metric 102.05 kg 43237319 temperature_standard 97.6 F 84434048 temperature_metric 36.44 C 14360713 respiration_rate 17 /min 53668488 height_standard 66 in 35158588 height_metric 167.64 cm 70162269 heart_rate 83 /min 25658713 BP_systolic 127 mm[Hg] 09236600 BP_diastolic 69 mm[Hg] 46599282 BMI 36.3 kg/m2 93620226 weight_standard 201.28 lb 22476851 weight_metric 91.3 kg 34138588 temperature_standard 96.7 F 62785352 temperature_metric 35.94 C 97567199 respiration_rate 18 /min 29699279 heart_rate 88 /min 49052863 BP_systolic 100 mm[Hg] 74386384 BP_diastolic 55 mm[Hg]
[2021-01-13 12:05] LABS: ALBUMIN 2.6 g/dL (3.2-5.5); ALBUMIN/GLOBULIN RATIO 1.2 (1.0-2.2); CALCIUM 8.2 mg/dL (8.5-10.3); CREATININE 2.5 mg/dL (0.6-1.2); POTASSIUM 4.8 mmol/L (3.5-5.0); TOTAL PROTEIN 4.8 g/dL (6.7-8.2)
[2021-01-13] MEDS ORDERED: LACTATED RINGERS 1,000 ML IV STA (12:56)
[2021-01-13 13:10] LABS: FECAL OCCULT BLOOD (FIT) NEGATIVE (NEGATIVE)
[2021-01-13 14:46] VITALS: BP 153/89
== END 2021-01-13 15:29 | disposition home or self-care (01) ==
LOC: EDUNIT# → ED 10:55
DX: R40.4 Transient alteration of awareness (principal); R55 Syncope and collapse; N18.9 Chronic kidney disease, unspecified; I35.0 Nonrheumatic aortic (valve) stenosis; I48.92 Unspecified atrial flutter; I48.91 Unspecified atrial fibrillation; Z95.0 Presence of cardiac pacemaker; I50.9 Heart failure, unspecified; Z66 Do not resuscitate
CPT/HCPCS: 36415; 71045; 80053; 82274; 83690; 84484; 85025; 85610; 85730; 93005; 96360; 99284; J7120

== ENCOUNTER 2021-01-13 15:29 | Outpatient (CLI) | payer MEDICARE | END 2021-01-13 15:30 | disposition home or self-care (01) | LOC: EMS 15:29 | PROVIDERS: ATTEND Emergency Medicine | DX: Z74.01 Bed confinement status (principal) | CPT/HCPCS: A0425; A0428 ==

== ENCOUNTER 2021-01-14 | Outpatient (CLI) | payer MEDICARE | END 2021-01-14 23:59 | disposition critical access hospital (66) | DX: R40.4 Transient alteration of awareness (principal) | CPT/HCPCS: A0425; A0429 ==

== ENCOUNTER 2021-01-14 18:27 | Inpatient (IN) | payer MEDICARE ==
--- OUTSIDE RECORDS SUMMARY | 2021-01-14 18:34 | EXTERNAL MEDICAL SUMMARY RPT | Continuity of Care Document ---
: Demographics Phone Unavailable Preferred Language [place] Citizen Marital Status Unknown Uatsdin Affiliation Unknown Race Unknown Ethnic Group Unknown Author Organization [place] Address [address] [place] [address] Phone Care Team Providers Name Role Phone Rakan Banks Unavailable Unavailable Medications date description facility [id number] Morphine Sulfate 15 MG Oral Tablet [facility] 18152374 Metoprolol Tartrate 25 MG Oral Tablet [facility] 83034010 Lisinopril 20 MG Oral Tablet [facility] 86079672 Furosemide 40 MG Oral Tablet [facility] 94608576 Amlodipine 5 MG Oral Tablet [facility] 26291628 Allopurinol 100 MG Oral Tablet [facility] 67619867 Calcium Carbonate 1250 MG / Cholecalcif myron 125 UNT [facility] Oral Tablet 22210202 Famotidine 20 MG Oral Tablet [facility] 22934722 Amlodipine 2.5 MG Oral Tablet [facility] 74101342 Allopurinol 100 MG Oral Tablet [facility] Problems date description facility [id number] Syncope and collapse [facility] 93819950 Dizziness and giddiness [facility] Procedures date description facility [id number] General Physician [facility] 26395546 Finding [facility] 69750868 Diagnosis [facility] Vital Signs date measurement value source 76384772 weight_standard 224.98 lb 10465452 weight_metric 102.05 kg 64048449 temperature_standard 97.6 F 52815786 temperature_metric 36.44 C 05304515 respiration_rate 17 /min 65270698 height_standard 66 in 12594686 height_metric 167.64 cm 85775813 heart_rate 83 /min 99972550 BP_systolic 127 mm[Hg] 64311811 BP_diastolic 69 mm[Hg] 83853112 BMI 36.3 kg/m2 01898096 weight_standard 201.28 lb 51474778 weight_metric 91.3 kg 38355909 temperature_standard 96.7 F 70849570 temperature_metric 35.94 C 35323835 respiration_rate 18 /min 77874948 heart_rate 88 /min 25281900 BP_systolic 100 mm[Hg] 70061511 BP_diastolic 55 mm[Hg]
--- NOTE | 2021-01-14 18:40 | ED Physician Documentation ---
PD HPI SYNCOPE - Stated complaint Stated Complaint: UNRESPONSIVE - History obtained from History obtained from: Patient, EMS - Additional information Additional information: This is an 85-year-old gentleman with history of atrial fibrillation, pacemaker in place, he is bedbound. He has been doing poorly since an episode of sepsis back in early November. He developed renal failure. He has been passing out recently and presents for an episode of syncope. He had another syncopal episode on the this month felt to be due to excessive narcotics. He was seen here yesterday for syncope. Reportedly syncopized today and had a prehospital blood pressure of 60 systolic. He does not remember passing out he feels fine now. Recent echo done at [facility] showing EF of 60 to 65% with moderate AAS. He feels fine now. There is no associated chest pain, trouble breathing. States that his edema is improving. Review of Systems Ten Systems: 10 systems reviewed and negative Constitutional: denies: Fever, Chills Nose: denies: Rhinorrhea / runny nose, Congestion Cardiac: denies: Chest pain / pressure, Palpitations PD PAST MEDICAL HISTORY - Past Medical History Cardiovascular: Congestive heart failure, High cholesterol, Atrial fibrillation Respiratory: Asthma GI: Other : Renal insuffiency, Frequency HEENT: Chronic vision loss, Chronic hearing loss, Other Psych: None Musculoskeletal: Osteoarthritis, Rheumatoid arthritis Derm: Other (bullous pemphigus) - Past Surgical History Past Surgical History: Yes Ortho: Carpal Tunnel surgery, Other Cardiovascular: Pacemaker - Present Medications Home Medications: Ambulatory Orders Medication Instructions Recorded Confirmed Cyanocobalamin (Vitamin B-12) 100 mcg PO DAILY 04/26/14 01/13/21 [Vitamin B-12] Atorvastatin Calcium 40 mg PO QPM 10/13/16 01/13/21 Warfarin Sodium [Jantoven] 2.5 mg PO DAILY 10/13/16 01/13/21 Furosemide 20 mg PO BID 03/03/20 01/13/21 Potassium Chloride 20 meq PO DAILY 03/07/20 01/13/21 predniSONE [Prednisone] 1 tab PO DAILY 03/07/20 01/13/21 Morphine ER [Morphine Sulfate ER] 15 mg PO BID PRN 12/03/20 01/13/21 Doxycycline Hyclate 100 mg PO BID 2 Days #4 cap 12/07/20 01/13/21 Metoprolol Succinate [Toprol Xl] 75 mg PO BID 30 Days #60 tablet 12/08/20 01/13/21 Acetaminophen [Aphen] 620 mg PO Q4HR PRN 01/10/21 01/13/21 Amlodipine Besylate [Norvasc] 2.5 mg PO HS 01/10/21 01/13/21 Bisacodyl Supp [Dulcolax Supp] 10 mg PO DAILY PRN 01/10/21 01/13/21 Famotidine [Acid-Pep] 20 mg PO DAILY 01/10/21 01/13/21 Lisinopril [Zestril] 20 mg PO DAILY 01/10/21 01/13/21 Mineral Oil [Mineral Oil Enema] 1 bottle [place] DAILY PRN 01/10/21 01/13/21 Oxycodone HCl [Roxicodone] 5 mg PO Q4HR PRN 01/10/21 01/13/21 Senna [Senokot] 8.6 mg PO BID 01/10/21 01/13/21 allopurinoL [Zyloprim] 100 mg PO DAILY 01/10/21 01/13/21 polyethylene glycoL 3350 [Miralax] 17 gm PO DAILY PRN 01/10/21 01/13/21 - Allergies Allergies/Adverse Reactions: Allergies Allergy/AdvReac Type Severity Reaction Status Date / Time No Known Drug Allergies Allergy Verified 01/14/21 18:36 - Social History Does the pt smoke?: No Smoking Status: Never smoker Does the pt drink ETOH?: Yes Does the pt have substance abuse?: No - Immunizations Immunizations are current?: Yes - POLST Patient has POLST: No POLST Status: DNR PD ED PE NORMAL - Vitals Vital signs reviewed: Yes - General General: Alert and oriented X 3, Other (He is slightly slow to answer questions, seems slightly narcotize with very small pupils.) - HEENT HEENT: EOMI - Neck Neck: Supple, no meningeal sign, No bony TTP - Cardiac Cardiac: RRR, No murmur - Respiratory Respiratory: No respiratory distress, Clear bilaterally - Abdomen Abdomen: Non tender - Back Back: No CVA TTP, No spinal TTP - Derm Derm: Normal color, Warm and dry - Extremities Extremities: Other (Difficult edema of the lower extremities with lots of bandages in place which he says are from his bullous pemphigoid.) - Neuro Neuro: Alert and oriented X 3, No motor deficit, No sensory deficit, Normal speech Results - Vitals Vitals: Vital Signs - 24 hr 01/14/21 01/14/21 18:36 19:43 Temperature 36.6 C Heart Rate 83 Heart Rate [ 91 Sitting] Heart Rate [ 82 Supine] Respiratory 12 Rate Blood Pressure 123/68 Blood Pressure 94/65 [Sitting] Blood Pressure 108/62 [Supine] O2 Saturation 96 Oxygen O2 Source Room air - EKG (time done) 1837 Rate: Rate (enter#) (95) Rhythm: Atrial fibrillation [place]: LAD Intervals: Other (IVCD ) Ischemia: Q waves (inferior) Computer interpretation: Agree with computer - Labs Labs: Laboratory Tests 01/14/21 01/14/21 01/14/21 19:55 19:55 20:04 WBC 9.5 RBC 3.65 L Hgb 10.9 L Hct 34.7 L MCV 95.1 H MCH 29.9 MCHC 31.4 L RDW 15.9 H Plt Count MPV 11.1 Neut # (Auto) 8.4 H Lymph # (Auto) 0.6 L Barnes # (Auto) 0.4 Eos # (Auto) 0.0 Baso # (Auto) 0.0 Absolute Nucleated RBC 0.03 Nucleated RBC % 0.3 Manual Slide Review Indicated Platelet Estimate NORMAL (130-450,000) RBC Morph Micro Appear 1+ ANISOCYTOSIS INR (Fingerstick) 4.7 H* Sodium 139 Potassium 4.8 Chloride 108 Carbon Dioxide 21 Anion Gap 10.0 BUN 109 H* Creatinine 2.9 H Estimated GFR (MDRD) 21 L Glucose 119 H Calcium 8.3 L Phosphorus 4.7 H Magnesium 1.9 Total Bilirubin 0.9 AST 19 ALT 22 Alkaline Phosphatase 52 Total Protein 4.8 L Albumin 2.5 L Globulin 2.3 Albumin/Globulin Ratio 1.1 PD MEDICAL DECISION MAKING - ED course ED course: 85yo male with multiple comorbidities with syncope and low BPs at [facility] and here, increasing BUN/Cr and unable to tolerate orthostatics here. Given worsening LAVINIA on top of CKD, syncope, and hypotension I spoke with Dr. Reynaga for observation at 8:40 PM. I also updated the by phone. Departure - Departure Disposition: ED Place in Observation Clinical Impression: Atrial fibrillation, Syncope, Orthostasis, LAVINIA (acute kidney injury) Condition: Fair Discharge Date/Time: 01/14/21 21:28
[2021-01-14 20:01] LABS: BASOPHILS % (AUTO) 0.2 %; EOSINOPHILS % (AUTO) 0.1 %; HCT - HEMATOCRIT 34.7 % (42.0-52.0); HGB - HEMOGLOBIN 10.9 g/dL (14.0-18.0); LYMPHOCYTES # (AUTO) 0.6 10^3/uL (1.5-3.5); LYMPHOCYTES % (AUTO) 6.6 %; MEAN CORPUSCULAR HEMOGLOBIN 29.9 pg (27.0-31.0); MEAN CORPUSCULAR HGB CONC 31.4 g/dL (32.0-36.0); MEAN CORPUSCULAR VOLUME 95.1 fL (80.0-94.0); MEAN PLATELET VOLUME 11.1 fL (7.4-11.4); MONOCYTES # (AUTO) 0.4 10^3/uL (0.0-1.0); MONOCYTES % (AUTO) 3.9 %; NEUTROPHILS # (AUTO) 8.4 10^3/uL (1.5-6.6); NEUTROPHILS % (AUTO) 88.4 %; NRBC ABSOLUTE COUNT (AUTO) 0.03 x10^3/uL; NUCLEATED RED BLOOD CELLS AUTO 0.3 /100WBC; RED BLOOD COUNT 3.65 10^6/uL (4.70-6.10); RED CELL DISTRIBUTION WIDTH 15.9 % (12.0-15.0); WHITE BLOOD COUNT 9.5 x10^3/uL (4.8-10.8)
[2021-01-14 20:05] LABS: SLIDE REVIEW? Indicated
[2021-01-14 20:26] LABS: PLATELET ESTIMATE, MANUAL NORMAL (130-450,000) (NORMAL); RBC MORPHOLOGY (MULTIPLE) 1+ ANISOCYTOSIS (NORMAL)
[2021-01-14 20:29] LABS: ALBUMIN 2.5 g/dL (3.2-5.5); ALBUMIN/GLOBULIN RATIO 1.1 (1.0-2.2); BILIRUBIN,TOTAL 0.9 mg/dL (0.2-1.0); CALCIUM 8.3 mg/dL (8.5-10.3); CREATININE 2.9 mg/dL (0.6-1.2); MAGNESIUM 1.9 mg/dL (1.7-2.8); PHOSPHORUS 4.7 mg/dL (2.5-4.6); POTASSIUM 4.8 mmol/L (3.5-5.0); TOTAL PROTEIN 4.8 g/dL (6.7-8.2)
[2021-01-14] MEDS ORDERED: SODIUM CHLORIDE 0.9% 1,000 ML IV STA (20:36)
[2021-01-14] MEDS ORDERED: SODIUM CHLORIDE FLUSH 0.9% 10 ML SYRINGE IVP PRN (20:43)
--- NOTE | 2021-01-14 20:46 | HISTORY & PHYSICAL EXAMINATION ---
Chief Complaint - Chief Complaint Chief Complaint: syncope History of Present Illness - Admitted From Admitted From:: [facility] ED - History Obtained From Records Reviewed: yes History obtained from: patient - History of Present Illness HPI Comment/Other: Patient is an 85-year-old male with significant medical history for atrial fibrillation on Coumadin, a pacemaker, bullous pemphigoid, rheumatoid arthritis, hypertension, hyperlipidemia and peripheral artery disease who presented to the ED after a syncopal episode at [facility] where he has been residing since December 23, 2020. It is reported that he also had a syncopal episode yesterday January 14, 2024 and on January 10. For each of the episodes he was evaluated in the ED, treated and discharged back to [facility]. He denies noting anything out of the ordinary when he woke up this morning. He denied dizziness, chest pain, dyspnea, abdominal pain, nausea, vomiting, fever or chills. He was last admitted to the hospital here on 12/02/2020 with sepsis secondary to lower extremity cellulitis. He has chronic lymphedema but his lower extremities appear significantly improved today compared to his last admission. In the ED he was noted to have a systolic blood pressure in the 90s. His creatinine was 2.9 weight a BUN of 109 and an estimated GFR of 21. He also had an INR of 4.7. There is no signs of bleeding but he has extensive bruising all over his body. As a result of the findings and his clinical presentation he was admitted for further treatment. History - Past Medical History Cardiovascular: reports: Congestive heart failure, High cholesterol, Atrial fibrillation Respiratory: reports: Asthma GI: reports: Other : reports: Renal insuffiency, Frequency HEENT: reports: Chronic vision loss, Chronic hearing loss, Other Psych: reports: None Musculoskeletal: reports: Osteoarthritis, Rheumatoid arthritis Derm: reports: Other (bullous pemphigus) MRSA Hx?: Yes - Past Surgical History Ortho: reports: Carpal Tunnel surgery, Other Cardiovascular: reports: Pacemaker - Family & Social History Family History Comment/Other: Maternal grandfather, mother and brother had Alzheimer's. His father and another of his brothers had pacemakers placed. Living arrangement: Assisted living Social History Notes: He does not consume tobacco products or recreational substance. He drinks wine occasionally with dinner - POLST Patient has POLST: No POLST Status: DNR Meds/Allgy - Home Medications Home Medications: Ambulatory Orders Medication Instructions Recorded Confirmed Cyanocobalamin (Vitamin B-12) 100 mcg PO DAILY 04/26/14 01/13/21 [Vitamin B-12] Atorvastatin Calcium 40 mg PO QPM 10/13/16 01/13/21 Warfarin Sodium [Jantoven] 2.5 mg PO DAILY 10/13/16 01/13/21 Furosemide 20 mg PO BID 03/03/20 01/13/21 Potassium Chloride 20 meq PO DAILY 03/07/20 01/13/21 predniSONE [Prednisone] 1 tab PO DAILY 03/07/20 01/13/21 Morphine ER [Morphine Sulfate ER] 15 mg PO BID PRN 12/03/20 01/13/21 Doxycycline Hyclate 100 mg PO BID 2 Days #4 cap 12/07/20 01/13/21 Metoprolol Succinate [Toprol Xl] 75 mg PO BID 30 Days #60 tablet 12/08/20 01/13/21 Acetaminophen [Aphen] 620 mg PO Q4HR PRN 01/10/21 01/13/21 Amlodipine Besylate [Norvasc] 2.5 mg PO HS 01/10/21 01/13/21 Bisacodyl Supp [Dulcolax Supp] 10 mg PO DAILY PRN 01/10/21 01/13/21 Famotidine [Acid-Pep] 20 mg PO DAILY 01/10/21 01/13/21 Lisinopril [Zestril] 20 mg PO DAILY 01/10/21 01/13/21 Mineral Oil [Mineral Oil Enema] 1 bottle [place] DAILY PRN 01/10/21 01/13/21 Oxycodone HCl [Roxicodone] 5 mg PO Q4HR PRN 01/10/21 01/13/21 Senna [Senokot] 8.6 mg PO BID 01/10/21 01/13/21 allopurinoL [Zyloprim] 100 mg PO DAILY 01/10/21 01/13/21 polyethylene glycoL 3350 [Miralax] 17 gm PO DAILY PRN 01/10/21 01/13/21 - Allergies Allergies/Adverse Reactions: Allergies Allergy/AdvReac Type Severity Reaction Status Date / Time No Known Drug Allergies Allergy Verified 01/14/21 18:36 Review of Systems - Constitutional Constitutional: reports: Weakness. denies: Fatigue, Fever - Eyes Eyes: denies: Pain - Ears, Nose & Throat Ears, Nose & Throat: reports: Hearing loss. denies: Ear pain - Cardiovascular Cariovascular: reports: Irregular heart rate, Edema (chronic lymphedema), Lightheadedness, Syncope. denies: Chest pain - Respiratory Respiratory: denies: Cough, Sputum production, Wheezing, Snoring, SOB at rest - Gastrointestinal Gastrointestinal: denies: Abdominal pain, Abdominal distention, Constipation, Diarrhea, Nausea, Vomiting - Genitourinary Genitourinary: denies: Dysuria, Frequency, Urgency, Hematuria - Musculoskeletal Musculoskeletal: denies: Muscle pain, Back pain - Integumentary Integumentary: reports: Other (chronic ulcers lower extremities, extensive bruising over body (on coumadin)) - Neurological Neurological: denies: Focal weakness, Headache - Psychiatric Psychiatric: denies: Depression, Anxiety - Endocrine Endocrine: denies: Polyuria, Polydypsia - Hematologic/Lymphatic Hematologic/Lymphatic: denies: Anemia Prior Level of Functionality: Patient requires some assistance with activities of daily living. Since his admission last month he now resides at [facility] Exam - Vital Signs Vital Signs: Vital Signs x48h Temp Pulse Pulse Pulse Resp BP BP 01/14/21 20:43 36.5 C 77 14 87/53 L 01/14/21 19:43 91 82 94/65 01/14/21 18:36 36.6 C 83 12 123/68 BP Pulse Ox 01/14/21 20:43 100 01/14/21 19:43 108/62 01/14/21 18:36 96 - Physical Exam General Appearance: positive: No acute distress, Alert Eyes Bilateral: positive: PERRL, EOMI ENT: positive: Dry mucous membranes Neck: positive: No JVD, Trachea midline Respiratory: positive: Chest non-tender, No respiratory distress, Breath sounds nml. negative: Wheezes, Rales, Rhonchi Cardiovascular: positive: Irregularly irregular, Systolic murmur Abdomen: positive: Non-tender, No organomegaly, Nml bowel sounds, No distention. negative: Guarding, Rebound Back: positive: Nml inspection Skin: positive: Other (chronic lower extremity ulcers, extensive bruising over body. on coumadin) Extremities: positive: Pedal edema (chronic lymphedema) Neurologic/Psychiatric: positive: Oriented x3, Mood/affect nml Conclusion/Plan - Problem List (1) Syncope Conclusion/Plan: Likely secondary to volume depletion/dehydration. Patient's systolic blood pressure was in the 90s. We will hold patient's Lasix, amlodipine, lisinopril and metoprolol while act ively hydrating him. Normal saline ordered at 100 mils per hour. Orthostatics ordered every shift. Patient had a recent 2D echocardiogram at [facility] which showed an ejection fraction of 60% and moderate aortic stenosis. He has a pacemaker in place. (2) Dehydration Conclusion/Plan: Likely from overdiuresis. We will hold Lasix and lisinopril. IV hydration with normal saline at 100 mils per hour (3) Acute on chronic renal insufficiency Conclusion/Plan: Likely prerenal. BUN was 109 and creatinine 2.9. Estimated GFR 21 Lasix, lisinopril, amlodipine and metoprolol held. Gentle hydration with normal saline at 100 mils per hour. Anticipating improvement. (4) Supratherapeutic INR Conclusion/Plan: NR was 4.7. No source or sign of bleeding. We will hold Coumadin. INR check daily. (5) Atrial fibrillation Conclusion/Plan: Patient's metoprolol while systolic blood pressure is less than 100. Will resume when appropriate to do so. We will also hold patient's Coumadin until INR is less than or equal to 3. (6) Hyperlipidemia Conclusion/Plan: On atorvastatin 40 mg p.o. every afternoon (7) Hypertension Conclusion/Plan: Currently hypotensive due to volume depletion. Systolic blood pressure in the 90s. Lisinopril, Lasix, amlodipine and metoprolol held. (8) Peripheral arterial disease Conclusion/Plan: Patient to follow-up in the outpatient setting with primary care physician and subsequently vascular. (9) Rheumatoid arthritis Conclusion/Plan: Patient has been on Remicade and methotrexate in the past with no success. He is currently on prednisone for bullous pemphigus which indirectly treat his arthritis. (10) Bullous pemphigus Conclusion/Plan: Patient is on prednisone 10 mg p.o. daily. - Lab Results Fish Bones: 01/14/21 19:55 01/14/21 19:55 Core Measures - Anticipated LOS I expect patient to be DC'd or transferred within 96 hours.: Yes - DVT/VTE - Prophylaxis VTE/DVT Device ordered at admit?: Yes VTE/DVT Prophylaxis med ordered at admit?: Yes
[2021-01-14] MEDS ORDERED: SODIUM CHLORIDE 0.9% 1,000 ML IV SCH (21:00)
--- OUTSIDE RECORDS SUMMARY | 2021-01-14 21:20 | EXTERNAL MEDICAL SUMMARY RPT | Continuity of Care Document ---
: Demographics Phone Unavailable Preferred Language [place] Marital Status Unknown Mandaeism Affiliation Unknown Race Unknown Ethnic Group Unknown Author Organization [facility] Address [address] [place] [address] Phone Care Team Providers Name Role Phone Rakan Banks Unavailable Unavailable Medications date description facility [id number] Morphine Sulfate 15 MG Oral Tablet [facility] [id number] Metoprolol Tartrate 25 MG Oral Tablet [facility] [id number] Lisinopril 20 MG Oral Tablet [facility] [id number] Furosemide 40 MG Oral Tablet [facility] [id number] Amlodipine 5 MG Oral Table[address] [facility] [id number] Allopurinol 100 MG Oral Tablet [facility] [id number] Calcium Carbonate 1250 MG / Cholecalcif myron 125 UNT [facility] Oral Tablet [id number] Famotidine 20 MG Oral Tablet [facility] [id number] Amlodipine 2.5 MG Oral Tablet [facility] 65922933 Allopurinol 100 MG Oral Tablet [facility] Problems date description facility [id number] Syncope and collapse [facility] [id number] Dizziness and giddiness [facility] Procedures date description facility [id number] General Physician [facility] [id number] Finding [facility] [id number] Diagnosis [facility] Vital Signs date measurement value source [id number] weight_standard 224.98 lb 16598135 weight_metric 102.05 kg 04454455 temperature_standard 97.6 F 14120622 temperature_metric 36.44 C 57991523 respiration_rate 17 /min [id number] height_standard 66 in [id number] height_metric 167.64 cm 89170358 heart_rate 83 /min 69629546 BP_systolic 127 mm[Hg] 75471696 BP_diastolic 69 mm[Hg] 51539056 BMI 36.3 kg/m2 43095261 weight_standard 201.28 lb 18413952 weight_metric 91.3 kg 19990518 temperature_standard 96.7 F 89754616 temperature_metric 35.94 C 10859000 respiration_rate 18 /min 13829257 heart_rate 88 /min 32936386 BP_systolic 100 mm[Hg] 23246732 BP_diastolic 55 mm[Hg]
[2021-01-14 21:53] LABS: B. PARAPERTUSSIS- RESP PCR PAN NOT DETECTED; B. PERTUSSIS- RESP PCR PANEL NOT DETECTED; C. PNEUMONIAE- RESP PCR PANEL NOT DETECTED; CORONAVIRUS 229E-RESP PCR NOT DETECTED; CORONAVIRUS HKU1-RESP PCR NOT DETECTED; CORONAVIRUS NL63-RESP PCR NOT DETECTED; CORONAVIRUS OC43-RESP PCR NOT DETECTED; HUMAN METAPNEUMOVIRUS NOT DETECTED; INFLUENZA A- RESP PCR PANEL NOT DETECTED; INFLUENZA B - RESP PCR PANEL NOT DETECTED; M. PNEUMONIAE- RESP PCR PANEL NOT DETECTED; PARAINFLUENZA VIRUS 1 NOT DETECTED; PARAINFLUENZA VIRUS 2 NOT DETECTED; PARAINFLUENZA VIRUS 3 NOT DETECTED; PARAINFLUENZA VIRUS 4 NOT DETECTED; RHINOVIRUS/ENTEROVIRUS NOT DETECTED; RSV- RESP PCR PANEL NOT DETECTED; SARS-CoV-2 -RESP PCR PANEL NOT DETECTED
[2021-01-14] MEDS: SODIUM CHLORIDE 0.9% 1,000 ML IV SCH (22:27)
[2021-01-14] MEDS: SODIUM CHLORIDE FLUSH 0.9% 10 ML SYRINGE IVP SCH (23:31)
[2021-01-15 05:51] LABS: BASOPHILS % (AUTO) 0.3 %; EOSINOPHILS % (AUTO) 0.5 %; HCT - HEMATOCRIT 31.3 % (42.0-52.0); LYMPHOCYTES # (AUTO) 0.8 10^3/uL (1.5-3.5); LYMPHOCYTES % (AUTO) 10.7 %; MEAN CORPUSCULAR HEMOGLOBIN 30.8 pg (27.0-31.0); MEAN CORPUSCULAR HGB CONC 31.9 g/dL (32.0-36.0); MEAN CORPUSCULAR VOLUME 96.3 fL (80.0-94.0); MEAN PLATELET VOLUME 10.7 fL (7.4-11.4); MONOCYTES # (AUTO) 0.5 10^3/uL (0.0-1.0); MONOCYTES % (AUTO) 6.9 %; NEUTROPHILS # (AUTO) 6.3 10^3/uL (1.5-6.6); NEUTROPHILS % (AUTO) 80.8 %; NRBC ABSOLUTE COUNT (AUTO) 0.03 x10^3/uL; NUCLEATED RED BLOOD CELLS AUTO 0.4 /100WBC; PLT - PLATELET COUNT 154 10^3/uL (130-450); RED BLOOD COUNT 3.25 10^6/uL (4.70-6.10); RED CELL DISTRIBUTION WIDTH 15.9 % (12.0-15.0); WHITE BLOOD COUNT 7.8 x10^3/uL (4.8-10.8)
[2021-01-15 05:55] LABS: PT - PROTHROMBIN TIME 52.2 secs (9.9-12.6)
[2021-01-15 06:03] LABS: INR 5.2 (0.8-1.2)
[2021-01-15 06:14] LABS: CALCIUM 8.1 mg/dL (8.5-10.3); CREATININE 2.7 mg/dL (0.6-1.2); POTASSIUM 4.3 mmol/L (3.5-5.0)
[2021-01-15] MEDS: SODIUM CHLORIDE FLUSH 0.9% 10 ML SYRINGE IVP SCH ×3 (09:16→23:21)
[2021-01-15] MEDS: SODIUM CHLORIDE 0.9% 1,000 ML IV SCH ×2 (09:16→20:44)
--- NOTE | 2021-01-15 09:31 | ADVANCE CARE PLANNING NOTE ---
Advance Care Planning - Planning Encounter Date: 01/15/21 Time: 08:30 Purpose: Clarify CODE STATUS Parties in Attendance: patient and Hospitalist Dr. Álvarez Decisional Capacity of the Patient: alert, oriented, makes his own decisions - Diagnosis for Encounter (1) Generalized weakness Summary: Over the course of years his obesity, arthritis of gotten the best of him. He has a modified van to be able to drive now. He was last independent and ambulatory without durable medical equipment (a scooter) 2 years ago. He was placed in a fpc facility approximately 3 weeks ago due to his worsening weakness acutely exacerbated by bullous skin disease. - Encounter Subjective/Patient's Story: He was born and raised in [place]. G[place] up [place] a farm. He says it was "house [place] He was always good at math and ended up going to the [employer] to get his bachelor's in math. 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 Was with [employer] until he retired. He is , has 3 children. One lives near [place], 1 lives near [place]. And another one lives near [place]. He and his have their own home. Through the years infirmity has gotten the best of him and is gotten weaker and weaker until his "legs just do not support me anymore". He has chronic daily pain from arthritis but does not require opiates. His weakness got to the point that he needed a sc ooter 2 years ago. He uses a modified van to be able to get in and out of the van and drive. He still regards himself is independent with regards to dressing himself, feeding himself. Unfortunately is not able to help around the house because of his immobility. He recently became ill with a bullous skin disease and that made his generalized weakness worse. He could no longer even transfer from bed to scooter or scooter to car. He is lost a lot of upper extremity strength on top of the already chronic lower extremity strength loss. He was placed in a fpc facility for rehab. That was approximately December 23. He and his plan on him returning home once he gets strong enough to go back to being able to transfer back and forth from the [facility]. I asked him how long he envisions that being successful when he says that he hopes for at least a year. After that, if he gets weak again, and cannot transfer, he will be hiring in-home care to stay in his home. He has no desire to be permanently placed in a fpc facility. He states that he has the finances to be able to hire 24/7 care to keep him at home. His advocates are his and daughter. While he still makes his own decisions, if he is unconscious, his and daughter speak for him. He wishes to be a full code but only for a few minutes of resuscitation. 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 I told him that we cannot promise that and most likely he would end up with a few rib fractures if we do chest compression briskly enough to compress his heart. He does want intubation with the chest compressions. Or at least oxygen delivery through bag mask. He only wants 1 cycle. I explained to him that 1 cycle is only about 2 minutes. He says that is acceptable enough. We have given him epinephrine, shocked him, done chest compressions, and is been 2 minutes and he is not responding to let him go. If he recovers but has significant mental disability, to not let him live. Again to let him go. Objective/Medical Story: Patient is an 85-year-old male with significant medical history for atrial fibrillation on Coumadin, a pacemaker, bullous pemphigoid, rheumatoid arthritis, hypertension, hyperlipidemia and peripheral artery disease who presented to the ED after a syncopal episode at [facility] where he has been residing since December 23, 2020. It is reported that he also had a syncopal episode yesterday January 14, 2024 and on January 10. For each of the episodes he was evaluated in the ED, treated and discharged back to [facility]. He denies noting anything out of the ordinary when he woke up this morning. He denied dizziness, chest pain, dyspnea, abdominal pain, nausea, vomiting, fever or chills. He was last admitted to the hospital here on 12/02/2020 with sepsis secondary to lower extremity cellulitis. He has chronic lymphedema but his lower extremities appear significantly improved today compared to his last admission. In the ED he was noted to have a systolic blood pressure in the 90s. His creatinine was 2.9 weight a BUN of 109 and an estimated GFR of 21. He also had an INR of 4.7. There is no signs of bleeding but he has extensive bruising all over his body. As a result of the findings and his clinical presentation he was admitted for further treatment. History - Past Medical History Cardiovascular: reports: Congestive heart failure, High cholesterol, Atrial fibrillation Respiratory: reports: Asthma GI: reports: Other : reports: Renal insuffiency, Frequency HEENT: reports: Chronic vision loss, Chronic hearing loss, Other Psych: reports: None Musculoskeletal: reports: Osteoarthritis, Rheumatoid arthritis Derm: reports: Other (bullous pemphigus) MRSA Hx?: Yes - Past Surgical History Ortho: reports: Carpal Tunnel surgery, Other Cardiovascular: reports: Pacemaker After aggressive IV fluid resuscitation, withholding his blood pressure medicines, he has not really improved his labs. As such she has been changed to inpatient status and we will continue IV fluids, diet. Goals of Care: 1. To achieve enough strength that he can use his upper extremities again to transfer in and out of bed to a scooter, in and out of van to his scooter. 2. If in a vegetative state, DO NOT RESUSCITATE 3. Full code until he is in a vegetative state 4. When the inevitability of aging and infirmity become so permanent that he can no longer be independent, he will remain at home with / private duty hired care. Plan: Full CODE STATUS Code Status: Attempt Resuscitation Time spent on advance care plannin minutes
--- NOTE | 2021-01-15 10:53 | PROVIDER PROGRESS NOTE ---
Subjective - Prog Note Date Prog Note Date: 01/15/21 Prog Note Time: 10:51 - Subjective Pt reports feeling: Improved Subjective: I am meeting this osmin gentleman for the first time. I have given him my card and explained what our plan is and give him that note as well. He tells me that he just moved into a [facility] facility on December 23. He has end-stage arthritis disease, peripheral vascular disease in his legs gotten steadily weaker over the years. He could no longer support his legs in his weight anymore and has been transferring and using a scooter to get around. It allows him to drive as well and that he uses a modified van. His goal is to get home after rehab. This is not a permanent placement. Since being there, he became more and more constipated. He was getting more uncomfortable with increasing abdominal fullness and he hesitated to eat. So for the last 4 days or so he has minimized oral intake to avoid the discomfort of his constipation. He is also on Lasix for lymphedema. He is also on l isinopril amlodipine and metoprolol for blood pressure. He is eating breakfast this morning. He says this is the most he is eaten in 4 days. He is already full and can barely finish his cream of wheat but loves his hot chocolate. He denies chest pain, cough, shortness of breath. Current Medications - Current Medications Current Medications: Active Medications Generic Name Dose Route Start Last Admin Trade Name Freq PRN Reason Stop Dose Admin Sodium Chloride 1,000 mls @ 100 mls/hr 01/14/21 21:00 01/15/21 09:16 Normal Saline 0.9% IV 100 mls/hr .Q10H KACY Administration Sodium Chloride 10 ml 01/14/21 20:43 Sodium Chloride Flush 0.9% 10 Ml Syringe IVP PRN PRN NEEDED PER PROVIDER ORDERS Sodium Chloride 10 ml 01/15/21 01:00 01/15/21 09:16 Sodium Chloride Flush 0.9% 10 Ml Syringe IVP Not Given 0100,0900,1700 KACY Cyanocobalamin (Vitamin B-12) [Vitamin B-12] 100 mcg PO DAILY 04/26/14 Atorvastatin Calcium 40 mg PO QPM 10/13/16 Warfarin Sodium [Jantoven] 2.5 mg PO DAILY 10/13/16 Furosemide 20 mg PO BID 03/03/20 Potassium Chloride 20 meq PO DAILY 03/07/20 predniSONE [Prednisone] 1 tab PO DAILY 03/07/20 Morphine ER [Morphine Sulfate ER] 15 mg PO BID PRN 12/03/20 Acetaminophen [Aphen] 620 mg PO Q4HR PRN 01/10/21 Amlodipine Besylate [Norvasc] 2.5 mg PO HS 01/10/21 Bisacodyl Supp [Dulcolax Supp] 10 mg PO DAILY PRN 01/10/21 Famotidine [Acid-Pep] 20 mg PO DAILY 01/10/21 Lisinopril [Zestril] 20 mg PO DAILY 01/10/21 Mineral Oil [Mineral Oil Enema] 1 bottle VT DAILY PRN 01/10/21 Oxycodone HCl [Roxicodone] 5 mg PO Q4HR PRN 01/10/21 Senna [Senokot] 8.6 mg PO BID 01/10/21 allopurinoL [Zyloprim] 100 mg PO DAILY 01/10/21 polyethylene glycoL 3350 [Miralax] 17 gm PO DAILY PRN 01/10/21 Objective - Vital Signs/Intake & Output Reviewed Vital Signs: Yes Vital Signs: Vital Signs x48h Temp Pulse Pulse Pulse Resp BP Pulse Ox 01/15/21 08:22 36.3 C L 66 18 97 01/15/21 07:50 36.3 C L 84 18 112/64 97 01/15/21 05:00 36.3 C L 66 20 145/82 H 98 Intake & Output: Intake & Output 01/12/21 01/13/21 01/14/21 01/15/21 23:59 23:59 23:59 23:59 Intake Total 860 1720 Output Total 550 Balance 860 1170 - Objective General Appearance: positive: No acute distress, Alert, Other (5 foot 11 inch white male, elderly, squinting glances at me with poor vision, weighing 90.5 kg.) Eyes Bilateral: positive: PERRL, EOMI ENT: positive: No signs of dehydration Neck: positive: No JVD. negative: Stiff neck Respiratory: positive: No respiratory distress, Other (97% room air). negative: Wheezes, Rales, Rhonchi Cardiovascular: positive: Irregularly irregular, Systolic murmur. negative: Gallop/S4, Friction rub Abdomen: positive: Nml bowel sounds, No distention. negative: Guarding, Rebound Extremities: positive: Pedal edema Neurologic/Psychiatric: positive: Oriented x3, CN's nml (2-12) (Mild deafness, decreased vision), Weakness (Generalized and severe). negative: Motor nml (Pin rolling tremor left hand. Right arm dominant with a mild tremor right hand and as he brings food to his mouth half the food felt on his chest. He denies any history of Parkinson's disease. No cogwheel rigidity. Left arm much weaker than right arm overall. Legs with lymphedema, venous stasis), Slurred/abnml speech - Lab Results Fish Bones: 01/15/21 05:33 01/15/21 05:33 Other Labs: Lab Results x24hrs 01/15/21 01/15/21 01/15/21 Range/Units 05:33 05:33 05:33 WBC 7.8 (4.8-10.8) x10^3/uL RBC 3.25 L (4.70-6.10) 10^6/uL Hgb 10.0 L (14.0-18.0) g/dL Hct 31.3 L (42.0-52.0) % MCV 96.3 H (80.0-94.0) fL MCH 30.8 (27.0-31.0) pg MCHC 31.9 L (32.0-36.0) g/dL RDW 15.9 H (12.0-15.0) % Plt Count 154 (130-450) 10^3/uL MPV 10.7 (7.4-11.4) fL Neut # (Auto) 6.3 (1.5-6.6) 10^3/uL Lymph # (Auto) 0.8 L (1.5-3.5) 10^3/uL Irwin # (Auto) 0.5 (0.0-1.0) 10^3/uL Eos # (Auto) 0.0 (0.0-0.7) 10^3/uL Baso # (Auto) 0.0 (0.0-0.1) 10^3/uL Absolute Nucleated RBC 0.03 x10^3/uL Nucleated RBC % 0.4 /100WBC Manual Slide Review Platelet Estimate (NORMAL) RBC Morph Micro Appear (NORMAL) PT 52.2 H (9.9-12.6) secs INR (Fingerstick) (0.8-1.2) INR 5.2 H* (0.8-1.2) Sodium 143 (135-145) mmol/L Potassium 4.3 (3.5-5.0) mmol/L Chloride 111 (101-111) mmol/L Carbon Dioxide 21 (21-32) mmol/L Anion Gap 11.0 (6-13) BUN 101 H* (6-20) mg/dL Creatinine 2.7 H (0.6-1.2) mg/dL Estimated GFR (MDRD) 23 L (>89) Glucose 94 (70-100) mg/dL Calcium 8.1 L (8.5-10.3) mg/dL Phosphorus (2.5-4.6) mg/dL Magnesium (1.7-2.8) mg/dL Total Bilirubin (0.2-1.0) mg/dL AST (10-42) IU/L ALT (10-60) IU/L Alkaline Phosphatase (42-121) IU/L Troponin I High Sens (2.3-19.7) ng/L Total Protein (6.7-8.2) g/dL Albumin (3.2-5.5) g/dL Globulin (2.1-4.2) g/dL Albumin/Globulin Ratio (1.0-2.2) Nasal Adenovirus (PCR) Nasal B. parapertussis DNA (PCR) Nasal Coronavir 229E PCR Nasal Coronavir HKU1 PCR Nasal Coronavir NL63 PCR Nasal Coronavir OC43 PCR Nasal Enterovir/Rhinovir PCR Nasal Influenza B PCR Nasal Influenza A PCR Nasal Parainfluen 1 PCR Nasal Parainfluen 2 PCR Nasal Parainfluen 3 PCR Nasal Parainfluen 4 PCR Nasal RSV (PCR) Nasal B.pertussis DNA PCR Nasal C.pneumoniae (PCR) Viktor Human Metapneumo PCR Nasal M.pneumoniae (PCR) Nasal SARS-CoV-2 (PCR) 01/15/21 01/14/21 01/14/21 Range/Units 05:33 20:47 20:04 WBC (4.8-10.8) x10^3/uL RBC (4.70-6.10) 10^6/uL Hgb (14.0-18.0) g/dL Hct (42.0-52.0) % MCV (80.0-94.0) fL MCH (27.0-31.0) pg MCHC (32.0-36.0) g/dL RDW (12.0-15.0) % Plt Count (130-450) 10^3/uL MPV (7.4-11.4) fL Neut # (Auto) (1.5-6.6) 10^3/uL Lymph # (Auto) (1.5-3.5) 10^3/uL Irwin # (Auto) (0.0-1.0) 10^3/uL Eos # (Auto) (0.0-0.7) 10^3/uL Baso # (Auto) (0.0-0.1) 10^3/uL Absolute Nucleated RBC x10^3/uL Nucleated RBC % /100WBC Manual Slide Review Platelet Estimate (NORMAL) RBC Morph Micro Appear (NORMAL) PT (9.9-12.6) secs INR (Fingerstick) 4.7 H* (0.8-1.2) INR (0.8-1.2) Sodium (135-145) mmol/L Potassium (3.5-5.0) mmol/L Chloride (101-111) mmol/L Carbon Dioxide (21-32) mmol/L Anion Gap (6-13) BUN (6-20) mg/dL Creatinine (0.6-1.2) mg/dL Estimated GFR (MDRD) (>89) Glucose (70-100) mg/dL Calcium (8.5-10.3) mg/dL Phosphorus (2.5-4.6) mg/dL Magnesium (1.7-2.8) mg/dL Total Bilirubin (0.2-1.0) mg/dL AST (10-42) IU/L ALT (10-60) IU/L Alkaline Phosphatase (42-121) IU/L Troponin I High Sens 37.9 H* (2.3-19.7) ng/L Total Protein (6.7-8.2) g/dL Albumin (3.2-5.5) g/dL Globulin (2.1-4.2) g/dL Albumin/Globulin Ratio (1.0-2.2) Nasal Adenovirus (PCR) NOT DETECTED Nasal B. parapertussis DNA (PCR) NOT DETECTED Nasal Coronavir 229E PCR NOT DETECTED Nasal Coronavir HKU1 PCR NOT DETECTED Nasal Coronavir NL63 PCR NOT DETECTED Nasal Coronavir OC43 PCR NOT DETECTED Nasal Enterovir/Rhinovir PCR NOT DETECTED Nasal Influenza B PCR NOT DETECTED Nasal Influenza A PCR NOT DETECTED Nasal Parainfluen 1 PCR NOT DETECTED Nasal Parainfluen 2 PCR NOT DETECTED Nasal Parainfluen 3 PCR NOT DETECTED Nasal Parainfluen 4 PCR NOT DETECTED Nasal RSV (PCR) NOT DETECTED Nasal B.pertussis DNA PCR NOT DETECTED Nasal C.pneumoniae (PCR) NOT DETECTED Viktor Human Metapneumo PCR NOT DETECTED Nasal M.pneumoniae (PCR) NOT DETECTED Nasal SARS-CoV-2 (PCR) NOT DETECTED 01/14/21 01/14/21 Range/Units 19:55 19:55 WBC 9.5 (4.8-10.8) x10^3/uL RBC 3.65 L (4.70-6.10) 10^6/uL Hgb 10.9 L (14.0-18.0) g/dL Hct 34.7 L (42.0-52.0) % MCV 95.1 H (80.0-94.0) fL MCH 29.9 (27.0-31.0) pg MCHC 31.4 L (32.0-36.0) g/dL RDW 15.9 H (12.0-15.0) % Plt Count (130-450) 10^3/uL MPV 11.1 (7.4-11.4) fL Neut # (Auto) 8.4 H (1.5-6.6) 10^3/uL Lymph # (Auto) 0.6 L (1.5-3.5) 10^3/uL Irwin # (Auto) 0.4 (0.0-1.0) 10^3/uL Eos # (Auto) 0.0 (0.0-0.7) 10^3/uL Baso # (Auto) 0.0 (0.0-0.1) 10^3/uL Absolute Nucleated RBC 0.03 x10^3/uL Nucleated RBC % 0.3 /100WBC Manual Slide Review Indicated Platelet Estimate NORMAL (130-450,000) (NORMAL) RBC Morph Micro Appear 1+ ANISOCYTOSIS (NORMAL) PT (9.9-12.6) secs INR (Fingerstick) (0.8-1.2) INR (0.8-1.2) Sodium 139 (135-145) mmol/L Potassium 4.8 (3.5-5.0) mmol/L Chloride 108 (101-111) mmol/L Carbon Dioxide 21 (21-32) mmol/L Anion Gap 10.0 (6-13) BUN 109 H* (6-20) mg/dL Creatinine 2.9 H (0.6-1.2) mg/dL Estimated GFR (MDRD) 21 L (>89) Glucose 119 H (70-100) mg/dL Calcium 8.3 L (8.5-10.3) mg/dL Phosphorus 4.7 H (2.5-4.6) mg/dL Magnesium 1.9 (1.7-2.8) mg/dL Total Bilirubin 0.9 (0.2-1.0) mg/dL AST 19 (10-42) IU/L ALT 22 (10-60) IU/L Alkaline Phosphatase 52 (42-121) IU/L Troponin I High Sens (2.3-19.7) ng/L Total Protein 4.8 L (6.7-8.2) g/dL Albumin 2.5 L (3.2-5.5) g/dL Globulin 2.3 (2.1-4.2) g/dL Albumin/Globulin Ratio 1.1 (1.0-2.2) Nasal Adenovirus (PCR) Nasal B. parapertussis DNA (PCR) Nasal Coronavir 229E PCR Nasal Coronavir HKU1 PCR Nasal Coronavir NL63 PCR Nasal Coronavir OC43 PCR Nasal Enterovir/Rhinovir PCR Nasal Influenza B PCR Nasal Influenza A PCR Nasal Parainfluen 1 PCR Nasal Parainfluen 2 PCR Nasal Parainfluen 3 PCR Nasal Parainfluen 4 PCR Nasal RSV (PCR) Nasal B.pertussis DNA PCR Nasal C.pneumoniae (PCR) Viktor Human Metapneumo PCR Nasal M.pneumoniae (PCR) Nasal SARS-CoV-2 (PCR) ABX Reporting Has patient been on IV antibiotics over the past 48 hours?: No Assessment/Plan - Problem List (1) Generalized weakness Impression: Due to age, infirmity, previous history of arthritis, and acutely worsened with recent episode of bullous skin disease. Has deteriorated to the point of requiring a scooter 2 years ago and now does not have the upper extremity strength to even transfer in and out of a scooter. Plan: Return to [facility] facility for rehab with eventual goal to return to home Advance care planning conversation had on separate dictation, please refer to that. (2) Syncope Impression: Sometimes got as low as the 80s yesterday. He has gradually improved. It is difficult to do orthostatics on him since he is basically sedentary in bed. Continue to hold his Lasix, amlodipine, lisinopril, metoprolol. Continue normal saline at 100 mils an hour Orthostatics with physical therapy today. To at least attempt supine and sittin g blood pressure check. He does have moderate aortic stenosis but at this time we do not think that is causing his syncope. It may be contributing, but not the cause. Change patient status to inpatient status (3) Dehydration due to meds for lymphedema, and poor p.o. intake due to his fears of constipation. Continue to hold Lasix and lisinopril Continue hydration (4) Acute on chronic renal insufficiency Conclusion/Plan: Likely prerenal. BUN was 109 and creatinine 2.9. Estimated GFR 21 Baseline BUN for this gentleman is 44 and occasionally as high as 72. Usually he lives between 40s to 50s. Baseline creatinine is 1.7-1.8. On December 26 he went as high as 4.3. I do not know if his meds were then adjusted and he went back to 2.5. With this admission his 2.9 >> 2.7 today. Continue to hold Lasix, lisinopril, amlodipine and metoprolol Gentle hydration with normal saline at 100 mils per hour. Anticipating improvement. (5) Supratherapeutic INR Conclusion/Plan: INR was 4.7>>5.2 today No source or sign of bleeding. We will continue to hold Coumadin. Give one dose of 5 mg of Vitamin K INR check daily. (6) Atrial fibrillation Conclusion/Plan: Hold metoprolol while systolic blood pressure is less than 100. Will resume when appropriate to do so. We will also hold patient's Coumadin until INR is less than or equal to 3. (7) Hyperlipidemia Conclusion/Plan: On atorvastatin 40 mg p.o. every afternoon (8) Hypertension Conclusion/Plan: Currently hypotensive due to volume depletion. Systolic blood pressure in the 90s. Lisinopril, Lasix, amlodipine and metoprolol held. (9) Peripheral arterial disease Conclusion/Plan: Patient to follow-up in the outpatient setting with primary care physician and subsequently vascular. (10) Rheumatoid arthritis Conclusion/Plan: Patient has been on Remicade and methotrexate in the past with no success. He is currently on prednisone for bullous pemphigus which indirectly treat his arthritis. (11) Bullous pemphigus Conclusion/Plan: Patient is on prednisone 10 mg p.o. daily.
[2021-01-15] MEDS ORDERED: CHERRY SYRUP 10 ML UDC PO ONE (11:07)
[2021-01-15] MEDS ORDERED: PHYTONADIONE 10 MG/ML AMP PO ONE (11:07)
--- NOTE | 2021-01-15 11:15 | PHARMACY PROGRESS NOTE ---
- Best Possible Medication History Admit Date and Time: 01/15/21 0639 Processed by: Pharmacy Medication History completed: Yes Secondary Source(s): Facility MAR as ONLY source As the person ultimately responsible for medication therapy, providers are able to order a medication from an existing home medication list in [facility] via the "Reconcile Routine" prior to Confirmation of that medication by residential direct support professional. Such practice is discouraged except when the physician, in their clinical judgment, deems that a medical need exists for a medication without regard to previous use.
[2021-01-15] MEDS ORDERED: MORPHINE 2 MG/ML CARPUJECT IVP PRN (14:37)
[2021-01-16] MEDS: SODIUM CHLORIDE 0.9% 1,000 ML IV SCH (01:12)
[2021-01-16 06:44] LABS: BASOPHILS % (AUTO) 0.4 %; EOSINOPHILS # (AUTO) 0.2 10^3/uL (0.0-0.7); EOSINOPHILS % (AUTO) 3.1 %; HCT - HEMATOCRIT 28.6 % (42.0-52.0); HGB - HEMOGLOBIN 9.2 g/dL (14.0-18.0); LYMPHOCYTES # (AUTO) 1.1 10^3/uL (1.5-3.5); LYMPHOCYTES % (AUTO) 15.5 %; MEAN CORPUSCULAR HEMOGLOBIN 30.8 pg (27.0-31.0); MEAN CORPUSCULAR HGB CONC 32.2 g/dL (32.0-36.0); MEAN CORPUSCULAR VOLUME 95.7 fL (80.0-94.0); MEAN PLATELET VOLUME 10.5 fL (7.4-11.4); MONOCYTES # (AUTO) 0.7 10^3/uL (0.0-1.0); MONOCYTES % (AUTO) 9.8 %; NEUTROPHILS % (AUTO) 69.7 %; NRBC ABSOLUTE COUNT (AUTO) 0.02 x10^3/uL; NUCLEATED RED BLOOD CELLS AUTO 0.3 /100WBC; PLT - PLATELET COUNT 155 10^3/uL (130-450); RED BLOOD COUNT 2.99 10^6/uL (4.70-6.10); WHITE BLOOD COUNT 7.2 x10^3/uL (4.8-10.8)
[2021-01-16 06:52] LABS: CALCIUM 7.7 mg/dL (8.5-10.3); CREATININE 2.2 mg/dL (0.6-1.2); POTASSIUM 3.7 mmol/L (3.5-5.0)
[2021-01-16 06:56] LABS: INR 1.7 (0.8-1.2)
--- NOTE | 2021-01-16 07:33 | PROVIDER PROGRESS NOTE ---
Subjective - Prog Note Date Prog Note Date: 01/16/21 Prog Note Time: 07:44 - Subjective Subjective: Hospitalized with us December 02 through December 08 for sepsis and cellulitis. He was discharged to home with home health with lower extremity edema and was pro gressively weakening. He presented our emergency room December 26 confused, and with renal failure. He was also septic with a white cell count of 21,000, lactic acidosis of 2.9. Creatinine 4.2. He was transferred to [facility] and was hospitalized from December 26 through January 05. He was treated as acute kidney injury superimposed on chronic renal failure due to chronic diuretic use and lisinopril. He received albumin and went to baseline renal function. His diuretics and KINSEY inhibitors were resumed. Hyperkalemia resolved. Leukocytosis was persistent and infectious disease was consulted. He was to continue doxycycline for lower extremity cellulitis until January 10. He had an e chocardiogram done which showed a normal left ventricular size, systolic function 60 to 65%. Moderate aortic stenosis. Mild to moderate aortic regurgitation. Compared to his previous echo from March 2017 aortic stenosis is progressed from mild to moderate. His bullous pemphigus disease was present on admission and continued to be active. He was continued on prednisone. He was discharged to [facility] in good condition on January 05. But on the way to [facility] had an episode of syncope and was then observed at [facility]. Eventually left [facility]. I have requested those records. And he was placed at [facility]. That would be approximately January 06. He then presented to our emergency room January 10 for a brief episode of unresponsiveness after morphine and oxycodone. He had unresponsive pinpoint pupils. Low oxygen. Given Narcan and and he returned to baseline. He was returned to [facility]. He now presents to us January 13 with acute renal failure again, hypotension, supratherapeutic INR. This morning he states that he was doing well without any specific pain. But by late morning, just before noon, he complains bitterly of left hip pain. He also has quite a bit of pain when the dressings are changed on the venous stasis ulcers of his legs. I had started morphine yesterday to be done with dressing changes. Charge nurse is now asking if we could increase the frequency of the morphine keeping in mind that this patient had an accidental opiate overdose January 10. Current Medications - Current Medications Current Medications: Active Medications Cholecalciferol (Cholecalciferol 25 Mcg Tablet) 50 mcg PO DAILY [facility] Dextrose (D5w) 1,000 mls @ 83.333 mls/hr IV .Q12H [facility] Metoprolol Tartrate (Metoprolol Tartrate 25 Mg Tablet) 25 mg PO BID [facility] Morphine Sulfate (Morphine 2 Mg/Ml Carpuject) 2 mg IVP Q8H PRN PRN Reason: PAIN Multivitamins/Minerals (Multivitamin W/Minerals Tablet) 1 tab PO DAILYWM [facility] Non-Formulary Medication (Calcium Carbonate/Vitamin D3 [Oyster Shell 500-Vit D3 200 Pk]) 1 tab PO DAILY [facility] Non-Formulary Medication (Cyanocobalamin (Vitamin B-12) [Vitamin B-12]) 100 mcg PO DAILY [facility] Non-Formulary Medication (L. Acidophilus/L. Rhamnosus [Probiotic 15 Billion Cell Cap]) 1 cap PO BID [facility] Non-Formulary Medication (Prednisone [Deltasone]) 9 mg PO DAILY [facility] Sodium Chloride (Sodium Chloride Flush 0.9% 10 Ml Syringe) 10 ml IVP PRN PRN PRN Reason: NEEDED PER PROVIDER ORDERS Sodium Chloride (Sodium Chloride Flush 0.9% 10 Ml Syringe) 10 ml IVP 0100,0900,1700 [facility] Last Admin: 01/15/21 23:21 Dose: Not Given Documented by: Warfarin Sodium (Warfarin 5 Mg Tablet) 2.5 mg PO DAILY [facility] Cyanocobalamin (Vitamin B-12) [Vitamin B-12] 100 mcg PO DAILY 04/26/14 Atorvastatin Calcium 40 mg PO QPM 10/13/16 Furosemide 20 mg PO BID 03/03/20 Potassium Chloride 20 meq PO DAILY 03/07/20 Acetaminophen [Aphen] 650 mg PO Q4HR PRN 01/10/21 Amlodipine Besylate [Norvasc] 2.5 mg PO QPM 01/10/21 Bisacodyl Supp [Dulcolax Supp] 10 mg SD DAILY PRN 01/10/21 Famotidine [Acid-Pep] 20 mg PO BID 01/10/21 Lisinopril [Zestril] 20 mg PO DAILY 01/10/21 Mineral Oil [Mineral Oil Enema] 1 bottle SD DAILY PRN 01/10/21 Senna [Senokot] 8.6 mg PO BID 01/10/21 allopurinoL [Zyloprim] 100 mg PO DAILY 01/10/21 polyethylene glycoL 3350 [Miralax] 17 gm PO DAILY PRN 01/10/21 Calcium Carbonate/Vitamin D3 [Oyster Shell 500-Vit D3 200 Pk] 1 tab PO DAILY 01/15/21 HYDROcod/ACETAM 5/325 [[place] 5/325] 1 tab PO BID 01/15/21 L. Acidophilus/L. Rhamnosus [Probiotic 15 Billion Cell Cap] 1 cap PO BID 01/15/21 Metoprolol Tartrate 75 mg PO BID 01/15/21 Warfarin [Coumadin] 2.5 mg PO DAILY 01/15/21 predniSONE [Deltasone] 9 mg PO DAILY 01/15/21 Objective - Vital Signs/Intake & Output Reviewed Vital Signs: Yes Vital Signs: Vital Signs x48h Temp Pulse Resp BP Pulse Ox 01/16/21 06:58 103 H 94/55 L 96 01/16/21 04:53 36.8 C 137 H 16 155/104 H 93 01/15/21 23:33 37 C 106 H 20 128/82 H 93 Intake & Output: Intake & Output 01/13/21 01/14/21 01/15/21 01/16/21 23:59 23:59 23:59 23:59 Intake Total 860 3400.000 50 Output Total 850 350 Balance 860 2550.000 -300 - Objective General Appearance: positive: Alert, Other (Elderly white male, alert, states he remembers me and remembers my name from yesterday. Is able to sit up in bed and feed himself.) Eyes Bilateral: positive: PERRL, EOMI, Other (He needs to squint when he tries to look at objects in the room or at me) ENT: positive: No signs of dehydration Neck: positive: No JVD. negative: Stiff neck Respiratory: positive: No respiratory distress, Other (Diminished breath sounds at the bases, slow shallow unlabored respiration). negative: Wheezes, Rales, Rhonchi Cardiovascular: positive: Irregularly irregular, Systolic murmur. negative: Gallop/S4, Friction rub Abdomen: positive: Non-tender, No organomegaly, Nml bowel sounds, No distention Skin: positive: Other (Edema of his arms and legs, bruises on forearms and antecubital fossa and dorsums of hand, bruises on legs, hip.) Extremities: positive: Full ROM, Pedal edema, Other (Legs being wrapped in dressings being changed for the venous stasis dermatitis) Neurologic/Psychiatric: positive: Oriented x3 (But occasionally disoriented in response to prompts), CN's nml (2-12). negative: Motor nml (Motor weakness. Nonfocal.) - Lab Results Fish Bones: 01/16/21 06:25 01/16/21 06:25 Other Labs: Lab Results x24hrs 01/16/21 01/16/21 01/16/21 Range/Units 06:25 06:25 06:25 WBC 7.2 (4.8-10.8) x10^3/uL RBC 2.99 L (4.70-6.10) 10^6/uL Hgb 9.2 L (14.0-18.0) g/dL Hct 28.6 L (42.0-52.0) % MCV 95.7 H (80.0-94.0) fL MCH 30.8 (27.0-31.0) pg MCHC 32.2 (32.0-36.0) g/dL RDW 16.0 H (12.0-15.0) % Plt Count 155 (130-450) 10^3/uL MPV 10.5 (7.4-11.4) fL Neut # (Auto) 5.0 (1.5-6.6) 10^3/uL Lymph # (Auto) 1.1 L (1.5-3.5) 10^3/uL [place] # (Auto) 0.7 (0.0-1.0) 10^3/uL Eos # (Auto) 0.2 (0.0-0.7) 10^3/uL Baso # (Auto) 0.0 (0.0-0.1) 10^3/uL Absolute Nucleated RBC 0.02 x10^3/uL Nucleated RBC % 0.3 /100WBC PT 18.0 H (9.9-12.6) secs INR 1.7 H (0.8-1.2) Sodium 146 H (135-145) mmol/L Potassium 3.7 (3.5-5.0) mmol/L Chloride 118 H (101-111) mmol/L Carbon Dioxide 20 L (21-32) mmol/L Anion Gap 8.0 (6-13) BUN 90 H* (6-20) mg/dL Creatinine 2.2 H (0.6-1.2) mg/dL Estimated GFR (MDRD) 29 L (>89) Glucose 109 H (70-100) mg/dL Calcium 7.7 L (8.5-10.3) mg/dL Troponin I High Sens (2.3-19.7) ng/L 01/15/21 Range/Units 11:43 WBC (4.8-10.8) x10^3/uL RBC (4.70-6.10) 10^6/uL Hgb (14.0-18.0) g/dL Hct (42.0-52.0) % MCV (80.0-94.0) fL MCH (27.0-31.0) pg MCHC (32.0-36.0) g/dL RDW (12.0-15.0) % Plt Count (130-450) 10^3/uL MPV (7.4-11.4) fL Neut # (Auto) (1.5-6.6) 10^3/uL Lymph # (Auto) (1.5-3.5) 10^3/uL [place] # (Auto) (0.0-1.0) 10^3/uL Eos # (Auto) (0.0-0.7) 10^3/uL Baso # (Auto) (0.0-0.1) 10^3/uL Absolute Nucleated RBC x10^3/uL Nucleated RBC % /100WBC PT (9.9-12.6) secs INR (0.8-1.2) Sodium (135-145) mmol/L Potassium (3.5-5.0) mmol/L Chloride (101-111) mmol/L Carbon Dioxide (21-32) mmol/L Anion Gap (6-13) BUN (6-20) mg/dL Creatinine (0.6-1.2) mg/dL Estimated GFR (MDRD) (>89) Glucose (70-100) mg/dL Calcium (8.5-10.3) mg/dL Troponin I High Sens 34.4 H* (2.3-19.7) ng/L ABX Reporting Has patient been on IV antibiotics over the past 48 hours?: No Assessment/Plan - Problem List (1) Generalized weakness Impression: Due to age, infirmity, previous history of arthritis, and acutely worsened with recent episode of bullous skin disease/cellulitis/sepsis 11/2020. Has deteriorated to the point of requiring a scooter 2 years ago and now does not have the upper extremity strength to even transfer in and out of a scooter. Plan: Return to retirement facility for rehab with eventual goal to return to home Advance care planning conversation had on separate dictation, please refer to that. He will return once his BUN/creat come down to baseline for him. PT eval and Tx while here. (2) Syncope Impression: Sometimes got as low as the 80s systolic. He has gradually improved. It is difficult to do orthostatics on him since he is basically sedentary in bed. Last night evening shift his supine blood pressure was 128/82 with a pulse of 106. Sitting blood pressure is 115/76 with a heart rate of 98. Continue to hold his Lasix, amlodipine, lisinopril. Continue IVF but change to D5. He does have moderate aortic stenosis but at this time we do not think that is causing his syncope. It may be contributing, but not the cause. Change patient status to inpatient status (3) Dehydration with hypernatremia due to meds for lymphedema, and poor p.o. intake due to his fears of constipation. Continue to hold Lasix and lisinopril Continue hydration but change NS to D5 for the sodium (4) Acute on chronic renal insufficiency Conclusion/Plan: Likely prerenal. BUN was 109 and creatinine 2.9. Estimated GFR 21 Baseline BUN for this gentleman is 44 and occasionally as high as 72. Usually he lives between 40s to 50s. Baseline creatinine is 1.7-1.8. On December 26 he went as high as 4.3. I do not know if his meds were then adjusted and he went back to 2.5. With this admission his creatinine of 2.9 >> 2.7>>2.2 today. Continue to hold Lasix, lisinopril, amlodipine Gentle hydration with normal saline at 100 mils per hour. Anticipating improvement. (5) Supratherapeutic INR Conclusion/Plan: INR was 4.7>>5.2 then given Vitamin K one dose 5/25>>1.7 today No source or sign of bleeding. Resume 2.5 mg coumadin INR check daily. (6) Atrial fibrillation w episodes of RVR now Conclusion/Plan: Resume metoprolol at a lower dose. Resume coumadin (7) Hyperlipidemia Conclusion/Plan: On atorvastatin 40 mg p.o. every afternoon that will be resumed after renal fx has become baseline (8) Hypertension Conclusion/Plan: Currently hypotensive due to volume depletion. Systolic blood pressure in the 90s. Lisinopril, Lasix, amlodipine held. (9) Peripheral arterial disease Conclusion/Plan: Patient to follow-up in the outpatient setting with primary care physician and subsequently vascular. (10) Rheumatoid arthritis and chronic joint pain Conclusion/Plan: Patient has been on Remicade and methotrexate in the past with no success. He is currently on prednisone for bullous pemphigus which indirectly treat his arthritis. increase morphine to 2 mg q2h prn from q8h prn add robaxin prn (11) Bullous pemphigus Conclusion/Plan: Patient is on prednisone 10 mg p.o. daily. It was not resumed on admission. resume at 9 mg that he was on before.
[2021-01-16] MEDS: SODIUM CHLORIDE FLUSH 0.9% 10 ML SYRINGE IVP SCH ×2 (08:58→17:30)
[2021-01-16] MEDS: DEXTROSE 5% 1,000 ML IV SCH ×2 (08:58→23:30)
[2021-01-16] MEDS ORDERED: CHOLECALCIFEROL 25 MCG TABLET PO SCH (09:00)
[2021-01-16] MEDS: METOPROLOL TARTRATE 25 MG TABLET PO SCH ×2 (09:01→21:26)
[2021-01-16] MEDS: MULTIVITAMIN W/MINERALS TABLET PO SCH (09:01)
[2021-01-16] MEDS: CHOLECALCIFEROL 25 MCG TABLET PO SCH (09:02)
[2021-01-16] MEDS: CALCIUM CARB (OYSTER SHELL) 500 MG TABLET PO SCH (09:02)
[2021-01-16] MEDS: CYANOCOBALAMIN 500 MCG TABLET PO SCH (09:06)
[2021-01-16] MEDS: WARFARIN 2.5 MG TABLET PO SCH (09:06)
[2021-01-16] MEDS ORDERED: MORPHINE 2 MG/ML CARPUJECT IVP PRN (11:22)
[2021-01-16] MEDS: predniSONE 5 MG TABLET PO SCH (11:53)
[2021-01-16] MEDS: methocarbamoL 500 MG TABLET PO PRN ×2 (11:54→18:05)
[2021-01-16] MEDS: SACCHAROMYCES BOULARDII 250 MG CAPSULE PO SCH (17:33)
[2021-01-17] MEDS: SODIUM CHLORIDE FLUSH 0.9% 10 ML SYRINGE IVP SCH ×3 (01:37→16:57)
[2021-01-17] MEDS: methocarbamoL 500 MG TABLET PO PRN ×2 (04:08→15:47)
[2021-01-17 05:24] LABS: BASOPHILS % (AUTO) 0.3 %; EOSINOPHILS # (AUTO) 0.1 10^3/uL (0.0-0.7); EOSINOPHILS % (AUTO) 1.3 %; HCT - HEMATOCRIT 34.1 % (42.0-52.0); HGB - HEMOGLOBIN 10.6 g/dL (14.0-18.0); LYMPHOCYTES % (AUTO) 11.5 %; MEAN CORPUSCULAR HEMOGLOBIN 30.4 pg (27.0-31.0); MEAN CORPUSCULAR HGB CONC 31.1 g/dL (32.0-36.0); MEAN CORPUSCULAR VOLUME 97.7 fL (80.0-94.0); MEAN PLATELET VOLUME 10.4 fL (7.4-11.4); MONOCYTES # (AUTO) 0.8 10^3/uL (0.0-1.0); NEUTROPHILS # (AUTO) 6.6 10^3/uL (1.5-6.6); NEUTROPHILS % (AUTO) 76.4 %; NRBC ABSOLUTE COUNT (AUTO) 0.03 x10^3/uL; NUCLEATED RED BLOOD CELLS AUTO 0.3 /100WBC; PLT - PLATELET COUNT 158 10^3/uL (130-450); RED BLOOD COUNT 3.49 10^6/uL (4.70-6.10); RED CELL DISTRIBUTION WIDTH 15.9 % (12.0-15.0); WHITE BLOOD COUNT 8.7 x10^3/uL (4.8-10.8)
[2021-01-17 05:31] LABS: CALCIUM 8.4 mg/dL (8.5-10.3); CREATININE 1.7 mg/dL (0.6-1.2); POTASSIUM 3.9 mmol/L (3.5-5.0)
[2021-01-17 05:37] LABS: INR 1.2 (0.8-1.2); PT - PROTHROMBIN TIME 13.6 secs (9.9-12.6)
[2021-01-17] MEDS: CHOLECALCIFEROL 25 MCG TABLET PO SCH (09:53)
[2021-01-17] MEDS: CALCIUM CARB (OYSTER SHELL) 500 MG TABLET PO SCH (09:53)
[2021-01-17] MEDS: CYANOCOBALAMIN 500 MCG TABLET PO SCH (09:54)
[2021-01-17] MEDS: MULTIVITAMIN W/MINERALS TABLET PO SCH (09:54)
[2021-01-17] MEDS: SACCHAROMYCES BOULARDII 250 MG CAPSULE PO SCH ×2 (09:54→16:57)
[2021-01-17] MEDS: WARFARIN 2.5 MG TABLET PO SCH (09:54)
[2021-01-17] MEDS: predniSONE 5 MG TABLET PO SCH (09:55)
[2021-01-17] MEDS: METOPROLOL TARTRATE 25 MG TABLET PO SCH (10:00)
--- NOTE | 2021-01-17 11:58 | Discharge Plan ---
"Discharge Plan for SNF / DESIREE - Discharge Plan And Transition Orders Problem Reviewed?: Yes Disposition: SNF DC/Xfer Condition: Fair Allergies and Adverse Reactions: Allergies Allergy/AdvReac Type Severity Reaction Status Date / Time No Known Drug Allergies Allergy Verified 01/14/21 18:36 Health Concerns: This is an 85-year-old white male who has chronic pain and joint disease from Rheumatoid arthritis that has left him with diminished mobility and using a scooter, and a recent illness has caused him to be bedbound. He was initially admitted with cellulitis and septic shock and renal failure. This was in November. He was discharged to home with home health. But returned December 26 with confusion and acute renal failure. Again septic. Transferred to [facility]. From [facility] he was discharged January 05 to [facility]. On the way to [facility] he had syncope in the ambulance and was hospitalized at [place] for syncope. Sent onto [facility]. He has completed doxycycline January 10 for his cellulitis. He then came back to our emergency room January 10 for an episode of unresponsiveness due to an overdose of morphine and oxycodone requiring Narcan. Sent back to [facility]. He now returns to us January 13 with acute renal failure, hypotension, supratherapeutic INR. Plan of Treatment: His blood pressure medications were held. Coumadin was held because of an INR that peaked at over 5. He has been hydrated with IV fluids. His BUN and creatinine have improved. Baseline BUN is in the 40s to 50s for him. He came in at 109. At discharge he is 70. Baseline creatinine is 1.6-1.8. He presented as a creatinine of 2.5. Peaked at 2.9. He is now 1.7 at discharge. His Coumadin has been resumed. I do not recommend bridging. 1. Metoprolol, Lasix, amlodipine, lisinopril were all discontinued. He has only been resumed on metoprolol 25 mg twice a day to control his atrial fibrillation rate. Please check his blood pressure daily. As he needs more medication resume the amlodipine or increase his metoprolol. I would stay away from lisinopril at this time because of his renal problems. Would also judiciously use allopurinol since it interacts with lisinopril. 2. I have resumed his Coumadin 2.5 mg a day. Please check his INR every 2 to 3 days and adjust his Coumadin as needed. 3. I have resumed his Deltasone 9 mg. Please taper as instructed by his primary care provider on her schedule. 4. Patient still wishes to be a full code with at least 4 minutes of resuscitation given. After 4 minutes, if he has not responded he wants us to let him go. 5. He is acknowledging that he is becoming more more disabled with age. I have had a long conversation with his and he about advance care planning for the future. Daughter has obtained a hospital bed for him to get at home when he leaves [facility]. They were getting desperate. They have been calling the primary care provider daily and leaving messages and having no response. So they will call the primary care provider only if this bed does not work out. and daughter have been given list of private duty caregivers that they will hire to help take care of him when he leaves [facility]. In the meantime he will work with physical therapy at [facility] to get him the strongest possible to regain some of his independence as much as possible. 6. Because the opiate overdose gave him a tremendous amount of anxiety, is clarifying that the patient will only be given acetaminophen with hydrocodone. While he was here, he did receive very small amounts of IV morphine to help him with dressing changes. Care Goals: At this time he is to return to [facility] for rehabilitation to increase his strength. He would like to be mobile enough to transfer from scooter to bed, or scooter shower, or scooter to his car. His greatest goal is to return to driving. After these goals, the patient just wishes to live as long as possible, as comfortably as possible, and wishes to live at home until the end of his days. Assessment: and patient have stated their care goals. They will be incorporating help from their 2 daughters to make those goals happen. 1 daughter was present at the end of the conversation. - SNF / LONG TERM Transition Orders Admit to (Facility): [facility] Under the care of (Name): Elisabet Banks Discharge Diagnosis: 1. Severe generalized weakness due to illness and senescence 2. Syncope 3. Dehydration 4. Hypernatremia 5. Acute on chronic stage III kidney disease 6. Supratherapeutic INR 7. Hypotension 8. Moderate aortic stenosis 9. Chronic atrial fibrillation 10. Hyperlipidemia 11. History of hypertension 12. Rheumatoid arthritis 13. Chronic pain syndrome with chronic joint pain 14. Bullous pemphigus Medicare Certification Statement: I certify that [facility] care is medically necessary on a continuing basis for any of the conditions for which she/he is receiving care during hospitalization. Notify PCP of admission and forward orders to primary provider for signature. Weight on admission and: Daily Call PCP immediately if weight increases by: 3 kg Other Notification Orders: Call PCP immediately if patient develops dyspnea, chest pain/tightness or edema. House Bowel Program: Yes Additional Bowel Program Orders: If no BM after 2 days, nurse may give M.O.M. 30ml PO PRN and/or ducolax Supp 1 UT and/or DONNA 250mg P.O., and/or senna 1-2 tabs PO. On day 3 nurse may give repeat above order until residents constipation is resolved. Annual Influenza Vaccine (between Apr 24 and November 21): Yes Treatments & Other Orders: Please monitor blood pressure every day. If blood pressure starts to climb, resume amlodipine. Lab Tests or X-ray Orders: For INR on Thursday and Thursday. BMP every Thursday Medication Orders: PLEASE REFER TO THE DISCHARGE MEDICATION LIST. Insulin Orders?: No - Medications New Prescriptions: HYDROcod/ACETAM 5/325 [[place] 5/325] 1 tab PO BID #30 tab - Diet Type: No added salt Texture: Regular May have monthly special meal: Yes - Therapies | Activity Therapy: Evaluation | Treat if indicated: PT, OT Rehabilitation Potential: Maximize functional status, Return to independent living Activity: Activity as Tolerated Weight Bearing: Full Weight Assistance Devices: Wheelchair, Walker"
--- NOTE | 2021-01-17 12:39 | DISCHARGE SUMMARY ---
Discharge Summary Admit Date: 01/14/21 Discharge Date: 01/17/21 Discharging Provider: Monica Álvarez MD Primary Care Provider: Rakan Banks MD/Felix Chicas MD Code Status: Attempt Resuscitation Condition at Discharge: Fair Discharge Disposition: DC/Xfer - DIAGNOSES Discharge Diagnoses with Status of Each Condition: 1. Severe generalized weakness due to illness and senescence 2. Syncope 3. Dehydration 4. Hypernatremia 5. Acute on chronic stage III kidney disease 6. Supratherapeutic INR 7. Hypotension 8. Moderate aortic stenosis 9. Chronic atrial fibrillation 10. Hyperlipidemia 11. History of hypertension 12. Rheumatoid arthritis 13. Chronic pain syndrome with chronic joint pain 14. Bullous pemphigus - HPI History of Present Illness: Patient is an 85-year-old male with significant medical history for atrial fibrillation on Coumadin, a pacemaker, bullous pemphigoid, rheumatoid arthritis, hypertension, hyperlipidemia and peripheral artery disease who presented to the ED after a syncopal episode at [facility] where he has been residing since December 23, 2020. It is reported that he also had a syncopal episode yesterday January 14, 2024 and on January 10. For each of the episodes he was evaluated in the ED, treated and discharged back to [facility]. He denies noting anything out of the ordinary when he woke up this morning. He denied dizziness, chest pain, dyspnea, abdominal pain, nausea, vomiting, fever or chills. He was last admitted to the hospital here on 12/02/2020 with sepsis secondary to lower extremity cellulitis. He has chronic lymphedema but his lower extremities appear significantly improved today compared to his last admission. In the ED he was noted to have a systolic blood pressure in the 90s. His creatinine was 2.9 weight a BUN of 109 and an estimated GFR of 21. He also had an INR of 4.7. There is no signs of bleeding but he has extensive bruising all over his body. As a result of the findings and his clinical presentation he was admitted for further treatment. - Past Medical History Cardiovascular: reports: Congestive heart failure, High cholesterol, Atrial fibrillation Respiratory: reports: Asthma GI: reports: Other : reports: Renal insuffiency, Frequency HEENT: reports: Chronic vision loss, Chronic hearing loss, Other Psych: reports: None Musculoskeletal: reports: Osteoarthritis, Rheumatoid arthritis Derm: reports: Other (bullous pemphigus) MRSA Hx?: Yes - Past Surgical History Ortho: reports: Carpal Tunnel surgery, Other Cardiovascular: reports: Pacemaker - HOSPITAL COURSE Hospital Course: I was able to review some of his past medical records. As such I was able to piece together a slightly different history of what brought him here. Hospitalized with us December 02 through December 08 for sepsis and cellulitis. He was discharged to home with home health with lower extremity edema and was progressively weakening. He presented our emergency room December 26 confused, and with renal failure. He was also septic with a white cell count of 21,000, lactic acidosis of 2.9. Creatinine 4.2. He was transferred to [facility] and was hospitalized from December 26 through January 05. He was treated as acute kidney injury superimposed on chronic renal failure due to chronic diuretic use and lisinopril. He received albumin and went to baseline renal function. His diuretics and KINSEY inhibitors were resumed. Hyperkalemia resolved. Leukocytosis was persistent and infectious disease was consulted. He was to continue doxycycline for lower extremity cellulitis until January 10. He had an echocardiogram done which showed a normal left ventricular size, systolic function 60 to 65%. Moderate aortic stenosis. Mild to moderate aortic regurgitation. Compared to his previous echo from March 2017 aortic stenosis is progressed from mild to moderate. His bullous pemphigus disease was present on admission and continued to be active. He was continued on prednisone. He was discharged to [facility] in good condition on January 05. But on the way to [facility] had an episode of syncope and was then observed at [facility]. Eventually left [facility]. I have requested those records but they were never received as of discharge here. And he was placed at [facility]. That would be approximately January 06. He then presented to our emergency room January 10 for a brief episode of unresponsiveness after morphine and oxycodone overdose. He had unresponsive pinpoint pupils. Low oxygen. Given Narcan and and he returned to baseline. He was returned to [facility]. He now presents to us January 13 with acute renal failure again, hypotension, supratherapeutic INR. Patient was admitted for treatment of acute renal failure in the face of hypotension, supratherapeutic INR. His initial troponin was 37.9, and next troponin was 34.4. We feel that is due to his renal failure and not a true cardiac problem. He has chronic atrial fibrillation and has a pacemaker. He is chronically anticoagulated. Main treatment consisted of IV fluids for hydration. Baseline BUN is 40-50 for him and he presented at 109. At discharge she is 70. Baseline creatinine is 1.6 and 1.8. He presented with a creatinine of 2.9 and he is now 1.7 at discharge. We had stopped all of his blood pressure medications because of hypotension to the 80s systolic. As such he did not receive metoprolol, lisinopril, amlodipine, Lasix. His blood pressure is gradually rebounded and he is now 112/58 today. The highest early this morning was 134/79. We have resumed his metoprolol at 25 mg twice daily, not 75 mg twice daily. Heart rate has started to go up to 100 and with the resumption of metoprolol 25 twice daily his heart rate is in the 70s. We have stopped his Coumadin. INR peaked at 5.2. He was given 5 mg of vitamin K orally. 2.5 mg of Coumadin has been resumed and INR is 1.2 this morning. I do not recommend bridging with Lovenox in this increasingly frail elderly gentleman. I would recommend checking his INR 2 times a week and adjusting his Coumadin accordingly. His steroids are resumed and they are to be tapered at the discretion of his primary care provider. Or Dr. Chicas with consultation with his primary care provider. He presented with a sacral decubitus on admission. That is covered with Tegaderm and slowly healing. He has a red candidal rash in the intertriginous folds of his groin that is being treated with nystatin powder and cream. He has severe stasis dermatitis from his bullous skin disease of his lower extremities that is exceedingly painful when you change his dressings. Those dressings were changed daily. While he was here he was carefully monitored for opioid response. He received 2 mg of morphine with dressing changes. He will be sent back to [facility] on his admission medication which was Vicodin 325/5. His forearms are still mildly edematous, but much improved since admission. He has ecchymosis on the dorsum of his hands, forearms. Bruising on his anterior abdominal wall that was present on admission. Advance care planning conversation was held with him. While he acknowledges his deterioration, and becomes tearful when discussing end-of-life issues, his hope is to at least get enough strength in his upper extremities to transfer from bed to scooter, or scooter to chair, or scooter to his car. He has a modified van that he drives. He states that his expectation is maybe stabilizing for up to a year and then going downhill again. His and daughters are in the process of hiring caregivers. They are buying a hospital bed today and hope to have it at home, so when he is discharged from [facility], they will be prepared for that. He still wants to be a full code. But he defines resuscitative effort as only 2 to 4 minutes of a resuscitative cycle. He expects chest compressions, bagging or intubation, may be a single effort a cardioversion or 1 dose of epinephrine. If all of that is done and after 2 to 4 minutes he has not responded, to let him go At discharge temperature is 36.3. Blood pressure 112/58. Respirations 18. 95% on room air. He is an alert, oriented to person place and time gentleman who is frail, and looks older than stated age. He is a large gentleman at 5 foot 11, 90.5 kg. Pale, fatigued looking. is concerned about soft tissue edema around his neck, especially on his left side but I am not seeing or feeling any masses or crepitance. Neck is supple. No JVD. Lungs have diminished breath sounds at the bases and he has occasional crackles that clear with a deep cough. He has a regular rate and rhythm and I do not hear A. fib. Systolic ejection murmur compatible with his aortic stenosis. Present on admission were numerous bruises in the left upper chest and left anterior axilla. Left biceps and triceps region also had large bruises on admission that are starting to fade now. Abdomen is soft, nontender, with a large pale abdominal pannus. The pannus is dotted with intermittent ecchymosis. Normal bowel sounds. Nontender. Scrotum is edematous. Red Brissa intertrigo with loss of skin in the intert riginous folds is mild and covered with nystatin cream and powder in the intertriginous folds, and between his thighs. He had arm skin tears present on admission that have started to already heal and closed. He had loss of superficial skin between buttock folds and sacrum on admission. Currently covered in Tegaderm. He still continues to have mild edema of the forearms and hands but at least 50% less than on admission. Legs are covered with dressing, and the skin above and below the dressings are clear, no redness or heat. Patient is exquisitely tender when you touch his shins or calves. He is alert and oriented to person place and time. 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 Generalized weakness. Just rolling over in the bed and holding onto the handrail exhaust him when we do his skin care. He is completely dependent for mobility with 2 assist. Greater than 40 minutes was spent coordinating discharge - ALLERGIES Allergies/Adverse Reactions: Allergies Allergy/AdvReac Type Severity Reaction Status Date / Time No Known Drug Allergies Allergy Verified 01/14/21 18:36 - MEDICATIONS Home Medications: Ambulatory Orders Medication Instructions Recorded Confirmed Cyanocobalamin (Vitamin B-12) 100 mcg PO DAILY 04/26/14 01/15/21 [Vitamin B-12] Potassium Chloride 20 meq PO DAILY 03/07/20 01/15/21 Acetaminophen [Aphen] 650 mg PO Q4HR PRN 01/10/21 01/15/21 Bisacodyl Supp [Dulcolax Supp] 10 mg [place] DAILY PRN 01/10/21 01/15/21 Famotidine [Acid-Pep] 20 mg PO BID 01/10/21 01/15/21 Mineral Oil [Mineral Oil Enema] 1 bottle [place] DAILY PRN 01/10/21 01/15/21 Senna [Senokot] 8.6 mg PO BID 01/10/21 01/15/21 allopurinoL [Zyloprim] 100 mg PO DAILY 01/10/21 01/15/21 polyethylene glycoL 3350 [Miralax] 17 gm PO DAILY PRN 01/10/21 01/15/21 Calcium Carbonate/Vitamin D3 1 tab PO DAILY 01/15/21 01/15/21 [Oyster Shell 500-Vit D3 200 Pk] L. Acidophilus/L. Rhamnosus 1 cap PO BID 01/15/21 01/15/21 [Probiotic 15 Billion Cell Cap] Warfarin [Coumadin] 2.5 mg PO DAILY 01/15/21 01/15/21 predniSONE [Deltasone] 9 mg PO DAILY 01/15/21 01/15/21 Atorvastatin Calcium 40 mg PO QPM #0 01/17/21 01/15/21 Calcium Carb (Oyster Shell) 500 mg PO DAILY tablet 01/17/21 [[place]-500] Cholecalciferol [Vitamin D3] 50 mcg PO DAILY tablet 01/17/21 HYDROcod/ACETAM 5/325 [[place] 5/325] 1 tab PO BID #30 tab 01/17/21 Metoprolol Tartrate [Lopressor] 25 mg PO BID tablet 01/17/21 Multivitamin W/Minerals [Theragran 1 tab PO DAILYWM tablet 01/17/21 M] - LABS Result Diagrams: 01/17/21 04:25 01/17/21 04:25
[2021-01-17] MEDS: DEXTROSE 5% 1,000 ML IV SCH (13:00)
[2021-01-17] MEDS ORDERED: CARBOXYMETHYLCELLULOSE OPHTH DROPS EACHEYE PRN (13:13)
[2021-01-17 16:56] VITALS: BP 115/67
== END 2021-01-17 18:43 | DRG 683 ==
LOC: EDUNIT# → ED 18:27 → MS2 20:43 → OBSVTOIN 01-15 06:39
PROVIDERS: ADMIT Internal Medicine; ATTEND Specialist
DX: N17.9 Acute kidney failure, unspecified (principal); I95.1 Orthostatic hypotension; E87.0 Hyperosmolality and hypernatremia; N18.9 Chronic kidney disease, unspecified; I13.0 Hypertensive heart and chronic kidney disease with heart failure and stage 1 through stage 4 chronic kidney disease, or unspecified chronic kidney disease; I48.91 Unspecified atrial fibrillation; Z20.822 Contact with and (suspected) exposure to COVID-19; L10.89 Other pemphigus; I48.20 Chronic atrial fibrillation, unspecified; L12.0 Bullous pemphigoid; I95.9 Hypotension, unspecified; I89.0 Lymphedema, not elsewhere classified; R53.1 Weakness; L97.929 Non-pressure chronic ulcer of unspecified part of left lower leg with unspecified severity; L97.919 Non-pressure chronic ulcer of unspecified part of right lower leg with unspecified severity; E86.0 Dehydration; E78.5 Hyperlipidemia, unspecified; I73.9 Peripheral vascular disease, unspecified; N18.30 Chronic kidney disease, stage 3 unspecified; Z66 Do not resuscitate; R35.0 Frequency of micturition; I50.9 Heart failure, unspecified; R79.1 Abnormal coagulation profile; G89.29 Other chronic pain; M06.9 Rheumatoid arthritis, unspecified; M19.90 Unspecified osteoarthritis, unspecified site; I35.0 Nonrheumatic aortic (valve) stenosis; Z79.01 Long term (current) use of anticoagulants; Z79.52 Long term (current) use of systemic steroids; Z79.899 Other long term (current) drug therapy; Z95.0 Presence of cardiac pacemaker; L89.159 Pressure ulcer of sacral region, unspecified stage; B37.2 Candidiasis of skin and nail; I87.2 Venous insufficiency (chronic) (peripheral); R60.0 Localized edema; R58 Hemorrhage, not elsewhere classified; S30.1XXA Contusion of abdominal wall, initial encounter; S20.212A Contusion of left front wall of thorax, initial encounter; S40.022A Contusion of left upper arm, initial encounter; S20.222A Contusion of left back wall of thorax, initial encounter; X58.XXXA Exposure to other specified factors, initial encounter; L30.4 Erythema intertrigo; E66.9 Obesity, unspecified; Z68.30 Body mass index [BMI] 30.0-30.9, adult; Z74.01 Bed confinement status; K59.00 Constipation, unspecified
CPT/HCPCS: 36415; 36416; 80048; 80053; 83735; 84100; 84484; 85025; 85610; 87631; 93005; 97162; 97530; 99285; A9270; G0378; J7512; 0202U

== ENCOUNTER 2021-01-17 18:42 | Outpatient (CLI) | payer MEDICARE | END 2021-01-17 18:43 | disposition home or self-care (01) | LOC: EMS 18:42 | PROVIDERS: ATTEND Specialist | DX: E87.5 Hyperkalemia (principal); L03.90 Cellulitis, unspecified; M19.90 Unspecified osteoarthritis, unspecified site; Z74.01 Bed confinement status | CPT/HCPCS: A0425; A0428 ==

== ENCOUNTER 2021-01-26 19:56 | Outpatient (CLI) | payer MEDICARE | END 2021-01-26 19:57 | disposition EMS.NT | LOC: EMS 19:56 | DX: R55 Syncope and collapse (principal) ==

== ENCOUNTER 2021-01-30 11:23 | Outpatient (CLI) | payer MEDICARE | END 2021-01-30 11:24 | disposition critical access hospital (66) | LOC: EMS 11:23 | DX: R55 Syncope and collapse (principal) | CPT/HCPCS: A0425; A0427 ==

== ENCOUNTER 2021-01-30 11:42 | Emergency (ER) | payer MEDICARE ==
--- OUTSIDE RECORDS SUMMARY | 2021-01-30 11:51 | EXTERNAL MEDICAL SUMMARY RPT | Continuity of Care Document ---
: Demographics Phone Unavailable Preferred Language Jamaican Marital Status Unknown Alevism Affiliation Unknown Race Unknown Ethnic Group Unknown Author Organization [place] Address [address] [place] [address] Phone Care Team Providers Name Role Phone Rakan Banks Unavailable Unavailable Allergies Encounters Medications date description facility [id number] Morphine Sulfate 15 MG Oral Tablet [facility] [id number] Metoprolol Tartrate 25 MG Oral Tablet [facility] [id number] Lisinopril 20 MG Oral Tablet [facility] [id number] Furosemide 40 MG Oral Tablet [facility] [id number] Amlodipine 5 MG Oral Tablet [facility] p[facility] [id number] Allopurinol 100 MG Oral Tablet [facility] [id number] Calcium Carbonate 1250 MG / Cholecalcif myron 125 UNT [facility] Oral Tablet [id number] Famotidine 20 MG Oral Tablet [facility] [id number] Amlodipine 2.[address] [facility] ospital [id number] Allopurinol 100 MG Oral Tablet [facility] Problems date description facility [id number] Syncope and collapse [facility] [id number] Dizziness and giddiness [facility] Procedures date description facility [id number] General Physician [facility] [id number] [facility] [id number] Diagnosis [facility] Results Vital Signs date measurement value source [id number] weight_standard 224.98 lb [id number] weight_metric 102.05 kg [id number] temperature_standard 97.6 F [id number] temperature_metric 36.44 C [id number] respiration_rate 17 /min [id number] height_standard 66 in [id number] height_metric 167.64 cm [id number] heart_rate 83 /min [id number] BP_systolic 127 mm[Hg] 19841929 BP_diastolic 69 mm[Hg] [id number] BMI 36.3 kg/m2 48445385 weight_standard 201.28 lb 76217372 weight_metric 91.3 kg 58342493 temperature_standard 96.7 F [id number] temperature_metric 35.94 C 13416374 respiration_rate 18 /min [id number] heart_rate 88 /min 11343506 BP_systolic 100 mm[Hg] 85811735 BP_diastolic 55 mm[Hg]
[2021-01-30 12:15] VITALS: BP 124/79
[2021-01-30 12:18] LABS: BASOPHILS % (AUTO) 0.7 %; EOSINOPHILS % (AUTO) 1.6 %; HGB - HEMOGLOBIN 10.3 g/dL (14.0-18.0); MEAN CORPUSCULAR HEMOGLOBIN 30.6 pg (27.0-31.0); MEAN CORPUSCULAR HGB CONC 31.2 g/dL (32.0-36.0); MEAN CORPUSCULAR VOLUME 97.9 fL (80.0-94.0); MONOCYTES % (AUTO) 7.7 %; NEUTROPHILS % (AUTO) 76.9 %; PLT - PLATELET COUNT 211 10^3/uL (130-450); RED BLOOD COUNT 3.37 10^6/uL (4.70-6.10); RED CELL DISTRIBUTION WIDTH 16.5 % (12.0-15.0); WHITE BLOOD COUNT 14.7 x10^3/uL (4.8-10.8)
[2021-01-30 12:20] LABS: SLIDE REVIEW? Indicated
[2021-01-30 12:23] LABS: INR 3.5 (0.8-1.2); PT - PROTHROMBIN TIME 36.3 secs (9.9-12.6)
--- NOTE | 2021-01-30 12:24 | ED Physician Documentation ---
PD HPI SYNCOPE - Stated complaint Stated Complaint: SYNCOPAL EPISODE - Chief complaint Chief Complaint: Neuro - History obtained from History obtained from: Patient, EMS - Additional information Additional information: 85-year-old gentleman has had trouble with recurrent syncope over the last month or 2. He has a pacemaker in place. He was seen approximately 5 times last month for syncope. Admitted once for dehydration and acute kidney injury. He was on the toilet today at home and had a syncopal episode. No associated chest pain or trouble breathing. He feels fine now. Review of Systems Ten Systems: 10 systems reviewed and negative Constitutional: denies: Fever, Chills Throat: reports: Reviewed and negative Cardiac: reports: Reviewed and negative Respiratory: reports: Reviewed and negative PD PAST MEDICAL HISTORY - Past Medical History Cardiovascular: Congestive heart failure, High cholesterol, Atrial fibrillation Respiratory: Asthma GI: Other : Renal insuffiency, Frequency HEENT: Chronic vision loss, Chronic hearing loss, Other Psych: None Musculoskeletal: Osteoarthritis, Rheumatoid arthritis Derm: Other (bullous pemphigus) - Past Surgical History Past Surgical History: Yes Ortho: Carpal Tunnel surgery, Other Cardiovascular: Pacemaker - Present Medications Home Medications: Ambulatory Orders Medication Instructions Recorded Confirmed Acetaminophen [Aphen] 650 mg PO Q4HR PRN 01/10/21 01/15/21 Bisacodyl Supp [Dulcolax Supp] 10 mg [place] DAILY PRN 01/10/21 01/15/21 Famotidine [Acid-Pep] 20 mg PO BID 01/10/21 01/15/21 Mineral Oil [Mineral Oil Enema] 1 bottle [place] DAILY PRN 01/10/21 01/15/21 Senna [Senokot] 8.6 mg PO BID 01/10/21 01/15/21 allopurinoL [Zyloprim] 100 mg PO DAILY 01/10/21 01/15/21 polyethylene glycoL 3350 [Miralax] 17 gm PO DAILY PRN 01/10/21 01/15/21 Calcium Carbonate/Vitamin D3 1 tab PO DAILY 01/15/21 01/15/21 [Oyster Shell 500-Vit D3 200 Pk] L. Acidophilus/L. Rhamnosus 1 cap PO BID 01/15/21 01/15/21 [Probiotic 15 Billion Cell Cap] Warfarin [Coumadin] 2.5 mg PO DAILY 01/15/21 01/30/21 Atorvastatin Calcium 40 mg PO QPM #0 01/17/21 01/30/21 Cholecalciferol [Vitamin D3] 50 mcg PO DAILY tablet 01/17/21 HYDROcod/ACETAM 5/325 [[place] 5/325] 1 tab PO BID #30 tab 01/17/21 Multivitamin W/Minerals [Theragran 1 tab PO DAILYWM tablet 01/17/21 M] Folic Acid 1 mg PO DAILY 01/30/21 01/30/21 Furosemide [Lasix] 40 mg PO DAILY 01/30/21 01/30/21 Mecobalamin [B12 Active] 250 mcg PO DAILY 01/30/21 01/30/21 Metoprolol Succinate [Toprol Xl] 75 mg PO BID 01/30/21 01/30/21 Morphine Sulfate [Ms Contin] 15 mg PO BID 01/30/21 01/30/21 predniSONE [Deltasone] 1 tablet PO DAILY 01/30/21 01/30/21 - Allergies Allergies/Adverse Reactions: Allergies Allergy/AdvReac Type Severity Reaction Status Date / Time No Known Drug Allergies Allergy Verified 01/30/21 11:48 - Social History Does the pt smoke?: No Smoking Status: Never smoker Does the pt drink ETOH?: Yes Does the pt have substance abuse?: No - Immunizations Immunizations are current?: Yes - POLST Patient has POLST: No POLST Status: DNR PD ED PE NORMAL - Vitals Vital signs reviewed: Yes - General General: Alert and oriented X 3, Other (Well-appearing elderly gentleman who is bedbound but in no distress) - HEENT HEENT: PERRL, EOMI - Neck Neck: Supple, no meningeal sign, No bony TTP - Cardiac Cardiac: RRR, No murmur - Respiratory Respiratory: No respiratory distress, Clear bilaterally - Abdomen Abdomen: Non tender - Back Back: No CVA TTP, No spinal TTP - Extremities Extremities: Other (Significant bilateral pitting pedal edema with weeping, worse than prior per .) - Neuro Neuro: Alert and oriented X 3, Normal speech Results - Vitals Vitals: Vital Signs - 24 hr 01/30/21 01/30/21 11:48 12:15 Temperature 35.5 C L Heart Rate 69 60 Respiratory 18 14 Rate Blood Pressure 127/80 124/79 O2 Saturation 100 100 Oxygen O2 Source Room air - EKG (time done) 1152 Rate: Rate (enter#) (65) Rhythm: Paced (Ventricular paced with underlying A. fib and flutter) Intervals: RBBB, Other (lafb) - Labs Labs: Laboratory Tests 01/30/21 01/30/21 01/30/21 12:05 12:05 12:05 WBC 14.7 H RBC 3.37 L Hgb 10.3 L Hct 33.0 L MCV 97.9 H MCH 30.6 MCHC 31.2 L RDW 16.5 H Plt Count 211 MPV 10.0 Neut # (Auto) Not Reportable Lymph # (Auto) Not Reportable [place] # (Auto) Not Reportable Eos # (Auto) Not Reportable Baso # (Auto) Not Reportable Absolute Nucleated RBC Not Reportable Total Counted 100 Band Neuts % (Manual) 2 Reactive Lymphs % (Man) 5 Abnorm Lymph % (Manual) 0 Myelocytes % 4 H Nucleated RBC % Not Reportable Neutrophils # (Manual) 11.3 H Lymphocytes # (Manual) 1.5 Monocytes # (Manual) 0.9 Eosinophils # (Manual) 0.4 Basophils # (Manual) 0.0 Differential Comment MANUAL DIFFERENTIAL Manual Slide Review Indicated PT 36.3 H INR 3.5 H Sodium 137 Potassium 5.2 H Chloride 108 Carbon Dioxide 21 Anion Gap 8.0 BUN 37 H Creatinine 2.2 H Estimated GFR (MDRD) 29 L Glucose 129 H Calcium 8.3 L Magnesium 2.0 Total Bilirubin 0.5 AST 22 ALT 29 Alkaline Phosphatase 81 Total Protein 4.7 L Albumin 2.4 L Globulin 2.3 Albumin/Globulin Ratio 1.0 PD MEDICAL DECISION MAKING - ED course ED course: 85-year-old gentleman with recurrent syncope, chronic renal insufficiency presents with another syncopal episode today. His creatinine is fairly stable and his BUN is down quite a bit. His INR is 3.5. H&H is stable. He does appear somewhat volume overloaded. The was worried about urinary retention which has been a problem in the past. I did a bedside ultrasound and bladder scan there is no significant urine in the bladder. Discussed with him that they could double Lasix for a few days. Given his borderline high potassium I did not recommend an increase in potassium supplementation with the increase in Lasix. Departure - Departure Disposition: 01 Home, Self Care Clinical Impression: Bullous pemphigus Atrial fibrillation Qualifiers: Atrial fibrillation type: unspecified Qualified Code(s): I48.91 - Unspecified atrial fibrillation Syncope Qualifiers: Syncope type: unspecified Qualified Code(s): R55 - Syncope and collapse Condition: Stable Record reviewed to determine appropriate education?: Yes Instructions: ED Fainting Unkn Cause Comments: As discussed, the evidence of dehydration present previously is not going on currently. I would recommend that for the next 3 days he double his furosemide dose. Do not increase the potassium since her potassium is on the high side. Return for new or worsening symptoms. Also as discussed he does not currently need a urinary catheter since there is no significant urine in his bladder. Follow-up with his physician.
[2021-01-30 12:31] LABS: ALBUMIN 2.4 g/dL (3.2-5.5); BILIRUBIN,TOTAL 0.5 mg/dL (0.2-1.0); CALCIUM 8.3 mg/dL (8.5-10.3); CREATININE 2.2 mg/dL (0.6-1.2); POTASSIUM 5.2 mmol/L (3.5-5.0); TOTAL PROTEIN 4.7 g/dL (6.7-8.2)
[2021-01-30 12:51] LABS: ABNORMAL LYMPHS % (MANUAL) 0 %
[2021-01-30 12:53] LABS: BAND NEUTROPHILS % (MANUAL) 2 %; EOSINOPHILS # (MANUAL) 0.4 10^3/uL (0-0.7); LYMPHOCYTES # (MANUAL) 1.5 10^3/uL (1.5-3.5); LYMPHOCYTES % (MANUAL) 5 %; MONOCYTES # (MANUAL) 0.9 10^3/uL (0.0-1.0); MYELOCYTES % (MANUAL) 4 %; NEUTROPHILS # (MANUAL) 11.3 10^3/uL (1.5-6.6); REACTIVE LYMPHS % (MANUAL) 5 %
[2021-01-30 12:54] LABS: DIFFERENTIAL COMMENT MANUAL DIFFERENTIAL
== END 2021-01-30 14:36 | disposition home or self-care (01) ==
LOC: EDUNIT# → ED 11:42
DX: R55 Syncope and collapse (principal); I48.91 Unspecified atrial fibrillation; I48.92 Unspecified atrial flutter; I45.2 Bifascicular block; Z79.01 Long term (current) use of anticoagulants; Z95.0 Presence of cardiac pacemaker; L12.0 Bullous pemphigoid; E87.70 Fluid overload, unspecified; N18.9 Chronic kidney disease, unspecified; Z66 Do not resuscitate
CPT/HCPCS: 36415; 51798; 80053; 83735; 85025; 85610; 93005; 99283; 99284

== ENCOUNTER 2021-02-11 12:00 | Outpatient (CLI) | payer MEDICARE | END 2021-02-11 23:59 | disposition home or self-care (01) | LOC: LAB.R 12:00 | PROVIDERS: ATTEND Family Medicine | DX: L03.116 Cellulitis of left lower limb (principal) | CPT/HCPCS: 87070; 87077; 87181; 87205 ==

== ENCOUNTER 2021-03-09 05:29 | Outpatient (CLI) | payer MEDICARE | END 2021-03-09 05:30 | disposition critical access hospital (66) | LOC: EMS 05:29 | DX: R60.0 Localized edema (principal); M79.605 Pain in left leg; M79.604 Pain in right leg | CPT/HCPCS: A0425; A0429 ==

== ENCOUNTER 2021-03-09 05:47 | Emergency (ER) | payer MEDICARE ==
--- NOTE | 2021-03-09 06:38 | ED Physician Documentation ---
History of Present Illness - Stated complaint Stated Complaint: PAIN AND EDEMA - Chief complaint Chief Complaint: General - History obtained from History obtained from: Patient, Family - History of Present Illness Timing: How many days ago (3) - Additonal information Additional information: 85-year-old male with a history of bullous pemphigoid and peripheral edema associated, has a history of renal insufficiency and he is on Lasix for diuresis. He is bedbound lives at home with his and caregivers. He has had a precipitous decline over the past 5 months and has been in and out of [facility] and the hospital. He did have a 10-day stay at [facility]. He has had recurrent episodes of syncope and has a pacemaker in place. Over the past 3 days he has noticed a decreased urine output and he and his have been debating coming to the hospital. This morning when he was only able to make a small amount of urine he decided to call the ambulance. He has had an increase in pain in his extremities with increased sensations to the swollen areas. Review of Systems Constitutional: denies: Fever Eyes: denies: Decreased vision Ears: denies: Ear pain Nose: denies: Rhinorrhea / runny nose, Congestion Throat: denies: Sore throat Cardiac: denies: Chest pain / pressure, Palpitations Respiratory: denies: Dyspnea, Cough GI: denies: Abdominal Pain, Nausea, Vomiting : reports: Unable to Void. denies: Dysuria, Frequency Skin: reports: Rash Musculoskeletal: reports: Extremity pain. denies: Neck pain, Back pain Neurologic: reports: Generalized weakness. denies: Focal weakness, Numbness, Difficulty speaking, Near syncope, Altered mental status, Headache, Head injury, LOC PD PAST MEDICAL HISTORY - Past Medical History Past Medical History: Yes Cardiovascular: Congestive heart failure, High cholesterol, Atrial fibrillation Respiratory: Asthma GI: Other : Renal insuffiency, Frequency HEENT: Chronic vision loss, Chronic hearing loss, Other Psych: None Musculoskeletal: Osteoarthritis, Rheumatoid arthritis Derm: Other Other Past Medical History: Has POLST form= Full Code - Past Surgical History Past Surgical History: Yes Ortho: Carpal Tunnel surgery, Other Cardiovascular: Pacemaker - Present Medications Home Medications: Ambulatory Orders Medication Instructions Recorded Confirmed Famotidine [Acid-Pep] 20 mg PO BID 01/10/21 03/09/21 Senna [Senokot] 8.6 mg PO BID 01/10/21 03/09/21 allopurinoL [Zyloprim] 100 mg PO DAILY 01/10/21 03/09/21 polyethylene glycoL 3350 [Miralax] 17 gm PO DAILY PRN 01/10/21 03/09/21 L. Acidophilus/L. Rhamnosus 1 cap PO BID 01/15/21 03/09/21 [Probiotic 15 Billion Cell Cap] Atorvastatin Calcium 40 mg PO QPM #0 01/17/21 03/09/21 Cholecalciferol [Vitamin D3] 50 mcg PO DAILY tablet 01/17/21 03/09/21 HYDROcod/ACETAM 5/325 [Pegram 5/325] 1 tab PO BID #30 tab 01/17/21 03/09/21 predniSONE [Deltasone] 1 tablet PO DAILY 01/30/21 03/09/21 Calcium Carbonate/Vitamin D3 1 packet PO DAILY 03/09/21 03/09/21 [Oyster Shell 500-Vit D3 200 Pk] Cyanocobalamin (Vitamin B-12) 1 tab PO DAILY 03/09/21 03/09/21 [Vitamin B-12 (1000 mcg sublingual)] Furosemide [Lasix] 80 mg PO BID 03/09/21 03/09/21 Metoprolol Tartrate [Lopressor] 25 mg PO BID 03/09/21 03/09/21 Potassium Chloride [Klor-Con 10] 20 meq PO DAILY 03/09/21 03/09/21 Warfarin [Coumadin] 2.5 mg PO 03/09/21 Warfarin [Coumadin] 3 mg PO DAILY 03/09/21 03/09/21 - Allergies Allergies/Adverse Reactions: Allergies Allergy/AdvReac Type Severity Reaction Status Date / Time No Known Drug Allergies Allergy Verified 03/09/21 06:10 - Social History Does the pt smoke?: No Smoking Status: Never smoker Does the pt drink ETOH?: Yes Does the pt have substance abuse?: No - Immunizations Immunizations are current?: Yes - POLST Patient has POLST: Yes POLST Status: DNR PD ED PE NORMAL - Vitals Vital signs reviewed: Yes (normal ) - General General: Alert and oriented X 3, No acute distress, Well developed/nourished - HEENT HEENT: Atraumatic, PERRL, EOMI - Neck Neck: Supple, no meningeal sign, No bony TTP - Cardiac Cardiac: RRR, No murmur, Other (distant heart sounds) - Respiratory Respiratory: No respiratory distress, Clear bilaterally - Abdomen Abdomen: Normal bowel sounds, Soft, Non tender, Non distended, No organomegaly - Back Back: No CVA TTP, No spinal TTP - Derm Derm: Other (There is marked edema to all 4 extremities with large blisters some of which have popped and are healing there is no evidence of cellulitis today. The swelling and edema is dramatic and very tender.) - Extremities Extremities: No deformity, Other (Pitting edema and edema with blistering without drainage or surrounding erythema.) - Neuro Neuro: Alert and oriented X 3, chief client officer 2-12 intact, No motor deficit, No sensory deficit, Normal speech Eye Opening: Spontaneous Motor: Obeys Commands Verbal: Oriented GCS Score: 15 - Psych Psych: Normal mood, Normal affect Results - Vitals Vitals: Vital Signs - 24 hr 03/09/21 03/09/21 05:47 06:34 Temperature 35.9 C L Heart Rate 75 73 Respiratory 14 14 Rate O2 Saturation 99 99 Oxygen O2 Source Room air Procedures - IVC sono (time) 0630 Bedside IVC sono: IVC measures (cm) (0.99), IVC collapsed c insp (cm) (complete), Dehydration (est 1-2 liter deficit) PD MEDICAL DECISION MAKING - ED course Complexity details: reviewed results, re-evaluated patient, considered differential, d/w patient ED course: 85-year-old male with a significant amount of peripheral edema, a history of renal insufficiency and bullous pemphigoid has developed increased pain in his extremities and a decreased urine output. On examination he is found to be dehydrated on interrogation the inferior vena cava and he is having enough problems with his edema that we are unable to place a blood pressure cuff without damaging the patient. He is alert oriented compos mentis and requesting evaluation of his low urine output. When I first took a look at this patient and got report from the medics that he was refusing dialysis I thought potentially he was an end-stage renal patient in need of dialysis. On close evaluation of his medical record this does not appear to be the case. He usually runs a creatinine in the 2 range. He is afraid of dialysis but is not refusing it. He just doesn't need it. Today he is dehydrated. It looks like would be very difficult to place an IV into this gentleman. The patient is refusing blood draw here this morning and at shift change the care of this patient is turned over to the capable Dr. Oliva.
[2021-03-09] MEDS ORDERED: SODIUM CHLORIDE 0.9% 1,000 ML IV STA (06:44)
[2021-03-09 07:57] LABS: BASOPHILS % (AUTO) 0.3 %; EOSINOPHILS % (AUTO) 0.5 %; HCT - HEMATOCRIT 36.9 % (42.0-52.0); HGB - HEMOGLOBIN 11.7 g/dL (14.0-18.0); LYMPHOCYTES # (AUTO) 0.9 10^3/uL (1.5-3.5); LYMPHOCYTES % (AUTO) 11.7 %; MEAN CORPUSCULAR HEMOGLOBIN 30.2 pg (27.0-31.0); MEAN CORPUSCULAR HGB CONC 31.7 g/dL (32.0-36.0); MEAN CORPUSCULAR VOLUME 95.3 fL (80.0-94.0); MONOCYTES # (AUTO) 0.6 10^3/uL (0.0-1.0); MONOCYTES % (AUTO) 7.3 %; NEUTROPHILS # (AUTO) 6.3 10^3/uL (1.5-6.6); NEUTROPHILS % (AUTO) 79.6 %; NRBC ABSOLUTE COUNT (AUTO) 0.11 x10^3/uL; NUCLEATED RED BLOOD CELLS AUTO 1.4 /100WBC; PLT - PLATELET COUNT 112 10^3/uL (130-450); RED BLOOD COUNT 3.87 10^6/uL (4.70-6.10); RED CELL DISTRIBUTION WIDTH 16.4 % (12.0-15.0)
[2021-03-09 08:15] LABS: ALBUMIN 2.7 g/dL (3.2-5.5); ALBUMIN/GLOBULIN RATIO 1.2 (1.0-2.2); BILIRUBIN,TOTAL 0.6 mg/dL (0.2-1.0); CALCIUM 8.3 mg/dL (8.5-10.3); CREATININE 2.9 mg/dL (0.6-1.2); POTASSIUM 5.2 mmol/L (3.5-5.0)
--- NOTE | 2021-03-09 08:37 | ED Physician Documentation ---
ED Addendum - Addendum Addendum: 03/09/21 08:[address] Patient [address] to me Dr[address] Figueroa pending lab work. Discussed with the patient who initially refused lab work but also is full code and wants everything done. I convinced him to let me do an ultrasound-guided IV. Lab work is showing LAVINIA. will d/w Dr. Matthews for admission. 03/09/21 10:51 d/w Dr. Matthews. she suggested trial outpatient so I d/w family who are amenable. 500cc ivf instilled and recommended increasing fluid intake. Patient will f/u with his primary doctor and will Perla Cain [facility]. Impression 1. lavinia 2. dehydration
[2021-03-09] MEDS ORDERED: SODIUM CHLORIDE 0.9% 500 ML IV STA ×2 (08:51→09:21)
== END 2021-03-09 12:13 | disposition home or self-care (01) ==
LOC: SUPCPDRO 05:47 → ED 05:47
DX: N17.9 Acute kidney failure, unspecified (principal); E86.0 Dehydration; R60.0 Localized edema; I48.91 Unspecified atrial fibrillation; I45.10 Unspecified right bundle-branch block; Z79.01 Long term (current) use of anticoagulants; Z95.0 Presence of cardiac pacemaker; L12.0 Bullous pemphigoid
CPT/HCPCS: 36415; 80053; 83690; 83880; 85025; 85610; 93005; 96360; 96361; 99284